=== PATIENT | female | born 1950 | race African-American/Black ===

== ENCOUNTER 2016-04-25 07:22 | Observation (INO) | payer MEDICARE, OTHER ==
[2016-04-25] MEDS ORDERED: NITROGLYCERIN OINT 1 INCH/GM PACKET TOPICAL STA (07:39)
[2016-04-25] MEDS ORDERED: NITROGLYCERIN SL TABS 0.4 MG TAB SUBLINGUAL STA (07:39)
[2016-04-25] MEDS ORDERED: ASPIRIN 81 MG CHEW PO STA (07:39)
--- NOTE | 2016-04-25 07:48 | ED ---
General Adult HPI - General Chief complaint: Chest Pain Stated complaint: chest pain Source: patient, RN notes reviewed Mode of arrival: wheelchair Limitations: no limitations - History of Present Illness Initial comments: This is a 65-year-old female presents emergency department complaining of chest pain. Patient states it started about 3:00 this morning. Patient states that sharp in nature last for 3-4 minutes at a time the pain radiates to her left arm she become short of breath and diaphoretic. Patient states been intermittent since 3 AM. Patient states she does have a family history of heart disease patient also is a smoker. Patient denies any recent fever or chills. Patient denies any cough. Patient denies any nausea. Patient denies any abdominal pain patient denies vomiting or diarrhea. Patient denies any lightheadedness dizziness or near-syncopal episode. Patient denies any numbness weakness Patient denies headache. Patient states the chest pain cannot be reproduced or cannot be worsened or improved with movement. - Related Data Home Medications Medication Instructions Recorded Confirmed Albuterol Sulfate [Proair Hfa] 2 puff INHALATION RT-Q4H PRN 06/27/15 04/25/16 Omeprazole [PriLOSEC] 40 mg PO DAILY 06/27/15 04/25/16 Rivaroxaban [Xarelto] 20 mg PO DAILY 08/18/15 04/25/16 diphenhydrAMINE HCL [Benadryl] 25 mg PO DAILY PRN 10/21/15 04/25/16 Fluticasone/Salmeterol [Advair 1 puff INHALATION RT-BID 11/01/15 04/25/16 250-50 Diskus] Furosemide [Lasix] 40 mg PO BID PRN 04/25/16 04/25/16 HYDROcodone/APAP 7.5-325MG [Drifting 1 tab PO Q4H PRN 04/25/16 04/25/16 7.5-325] Allergies Allergy/AdvReac Type Severity Reaction Status Date / Time No Known Allergies Allergy Verified 04/25/16 08:25 Review of Systems ROS Statement: Those systems with pertinent positive or pertinent negative responses have been documented in the HPI. ROS Other: All systems not noted in ROS Statement are negative. Past Medical History Past Medical History: Deep Vein Thrombosis (DVT), GERD/Reflux, Hypertension Additional Past Medical History / Comment(s): DIVERTICULITIS. IRREGULAR HEARTBEAT. COLON POLYPS.,SOB History of Any Multi-Drug Resistant Organisms: None Reported Past Surgical History: Appendectomy, Bowel Resection, Cholecystectomy, Hysterectomy, Orthopedic Surgery, Tubal Ligation Additional Past Surgical History / Comment(s): LEFT KNEE ARTHRO. LEFT BREAST BX -NEG. Past Anesthesia/Blood Transfusion Reactions: No Reported Reaction Past Psychological History: Anxiety Smoking Status: Current every day smoker Past Alcohol Use History: Daily Additional Past Alcohol Use History / Comment(s): SMOKED FOR: 49 YRS. PPD: LESS THAN PACK Past Drug Use History: None Reported - Past Family History Mother Family Medical History: Cancer Additional Family Medical History / Comment(s): CANCER OF LARYNX. CABG. FROM AN AORTIC ANEURYSM. Sister(s) Family Medical History: Cancer, Deep Vein Thrombosis (DVT) Father History Unknown: Yes Family Medical History: No Reported History, Unable to Obtain General Exam - General Exam Comments Initial Comments: GENERAL: Patient is well-developed and well-nourished. Patient is nontoxic and well- hydrated and is in mild distress. ENT: Neck is soft and supple. No significant lymphadenopathy is noted. Oropharynx is clear. Moist mucous membranes. Neck has full range of motion without eliciting any pain. EYES: The sclera were anicteric and conjunctiva were pink and moist. Extraocular movements were intact and pupils were equal round and reactive to light. Eyelids were unremarkable. PULMONARY: Unlabored respirations. Good breath sounds bilaterally. No audible rales rhonchi or wheezing was noted. CARDIOVASCULAR: There is a regular rate and rhythm without any murmurs gallops or rubs. ABDOMEN: Soft and nontender with normal bowel sounds. No palpable organomegaly was noted. There is no palpable pulsatile mass. SKIN: Skin is clear with no lesions or rashes and otherwise unremarkable. NEUROLOGIC: Patient is alert and oriented x3. Cranial nerves II through XII are grossly intact. Motor and sensory are also intact. Normal speech, volume and content. Symmetrical smile. MUSCULOSKELETAL: Normal extremities with adequate strength and full range of motion. No lower extremity swelling or edema. No calf tenderness. LYMPHATICS: No significant lymphadenopathy is noted PSYCHIATRIC: Normal psychiatric evaluation. Limitations: no limitations Course Vital Signs 04/25/16 04/25/16 04/25/16 07:33 08:05 08:50 Temperature 97.6 F Pulse Rate 59 L 59 L 57 L Respiratory 20 17 17 Rate Blood Pressure 184/107 156/79 167/91 O2 Sat by Pulse 99 97 Oximetry 04/25/16 09:35 Temperature Pulse Rate 77 Respiratory 17 Rate Blood Pressure 157/92 O2 Sat by Pulse 97 Oximetry Medical Decision Making - Medical Decision Making EKG shows a sinus rhythm at 58 bpm [place] interval is 112 QRS 76 QT interval is 456 QTC is 447. Patient's EKG shows no ST segment elevation or depression. I compared the EKG to an old EKG and there is a P axis change in the inferior leads as well as the patient is not bradycardic worse before she was not. Patient's chest pain was relieved with nitroglycerin. Started the patient heparin because of the significance of her symptoms as well as the relief with nitro and her risk factors. I spoke with . he agreed to admit the patient admitted the patient I consult the cardiology. - Lab Data Result diagrams: 04/25/16 07:30 04/25/16 07:30 Lab Results 04/25/16 04/25/16 04/25/16 Range/Units 07:30 07:30 07:30 WBC 6.1 (3.8-10.6) k/uL RBC 4.81 (3.80-5.40) m/uL Hgb 15.7 (11.4-16.0) gm/dL Hct 47.9 H (34.0-46.0) % MCV 99.6 (80.0-100.0) fL MCH 32.7 (25.0-35.0) pg MCHC 32.8 (31.0-37.0) g/dL RDW 13.6 (11.5-15.5) % Plt Count 243 (150-450) k/uL Neutrophils % (Manual) 39.0 % Lymphocytes % (Manual) 47.0 % Monocytes % (Manual) 13.0 % Eosinophils % (Manual) 1.0 % Neutrophils # (Manual) 2.4 (1.3-7.7) k/uL Lymphocytes # (Manual) 2.9 (1.0-4.8) k/uL Monocytes # (Manual) 0.8 (0-1.0) k/uL Eosinophils # (Manual) 0.1 (0-0.7) k/uL Nucleated RBCs 0 (0-0) /100 WBC Manual Slide Review Performed RBC Morphology Normal PT (9.0-12.0) sec INR (<1.1) APTT (22.0-30.0) sec Sodium 142 (137-145) mmol/L Potassium 4.8 (3.5-5.1) mmol/L Chloride 111 H (98-107) mmol/L Carbon Dioxide 18 L (22-30) mmol/L Anion Gap 13 mmol/L BUN 16 (7-17) mg/dL Creatinine 0.89 (0.52-1.04) mg/dL Est GFR (MDRD) Af Amer >60 (>60 ml/min/1.73 sqM) Est GFR (MDRD) Non-Af >60 (>60 ml/min/1.73 sqM) Glucose 133 H (74-99) mg/dL Calcium 9.7 (8.4-10.2) mg/dL Magnesium 2.0 (1.6-2.3) mg/dL Total Bilirubin 1.3 (0.2-1.3) mg/dL AST 73 H (14-36) U/L ALT 59 H (9-52) U/L Alkaline Phosphatase 139 H (38-126) U/L Total Creatine Kinase 61 (30-135) U/L CK-MB (CK-2) 0.8 (0.0-2.4) ng/mL CK-MB (CK-2) Rel Index 1.3 Troponin I <0.012 (0.000-0.034) ng/mL Total Protein 7.9 (6.3-8.2) g/dL Albumin 3.9 (3.5-5.0) g/dL 04/25/16 Range/Units 07:30 WBC (3.8-10.6) k/uL RBC (3.80-5.40) m/uL Hgb (11.4-16.0) gm/dL Hct (34.0-46.0) % MCV (80.0-100.0) fL MCH (25.0-35.0) pg MCHC (31.0-37.0) g/dL RDW (11.5-15.5) % Plt Count (150-450) k/uL Neutrophils % (Manual) % Lymphocytes % (Manual) % Monocytes % (Manual) % Eosinophils % (Manual) % Neutrophils # (Manual) (1.3-7.7) k/uL Lymphocytes # (Manual) (1.0-4.8) k/uL Monocytes # (Manual) (0-1.0) k/uL Eosinophils # (Manual) (0-0.7) k/uL Nucleated RBCs (0-0) /100 WBC Manual Slide Review RBC Morphology PT 11.6 (9.0-12.0) sec INR 1.2 (<1.1) APTT 25.5 (22.0-30.0) sec Sodium (137-145) mmol/L Potassium (3.5-5.1) mmol/L Chloride (98-107) mmol/L Carbon Dioxide (22-30) mmol/L Anion Gap mmol/L BUN (7-17) mg/dL Creatinine (0.52-1.04) mg/dL Est GFR (MDRD) Af Amer (>60 ml/min/1.73 sqM) Est GFR (MDRD) Non-Af (>60 ml/min/1.73 sqM) Glucose (74-99) mg/dL Calcium (8.4-10.2) mg/dL Magnesium (1.6-2.3) mg/dL Total Bilirubin (0.2-1.3) mg/dL AST (14-36) U/L ALT (9-52) U/L Alkaline Phosphatase (38-126) U/L Total Creatine Kinase (30-135) U/L CK-MB (CK-2) (0.0-2.4) ng/mL CK-MB (CK-2) Rel Index Troponin I (0.000-0.034) ng/mL Total Protein (6.3-8.2) g/dL Albumin (3.5-5.0) g/dL Critical Care Time Critical Care Time: Yes Total Critical Care Time: 35 Disposition Clinical Impression: Unstable angina pectoris Disposition: ADMITTED IP TO THIS HOSP Referrals: Sergei Seals MD [Primary Care Provider] - 1-2 days Time of Disposition: 10:44
[2016-04-25 08:15] LABS: Aty Lym Flag Slight; CHCM 33.2; HCT 47.9 % (34.0-46.0); HDW 2.05; HGB 15.7 gm/dL (11.4-16.0); MCH 32.7 pg (25.0-35.0); MCHC 32.8 g/dL (31.0-37.0); MCV 99.6 fL (80.0-100.0); Mean Platelet Volume 8.2; RBC 4.81 m/uL (3.80-5.40); RDW 13.6 % (11.5-15.5); WBC 6.1 k/uL (3.8-10.6); WBC (Perox) 6.05
--- NOTE | 2016-04-25 08:20 | XR ---
EXAMINATION TYPE: XR chest 2V DATE OF EXAM: 04/25/2016 8:17 AM HISTORY: Chest pain radiating into the left arm. REFERENCE: Previous study dated 11/02/2015. FINDINGS: The lungs are overinflated. Heart size is upper limits of normal. The lungs are clear. Pleu ral spaces are clear. IMPRESSION: 1. COPD. 2. BORDERLINE CARDIOMEGALY.
[2016-04-25 08:37] LABS: Add Differential Manual Differential; Creatine Kinase 61 U/L (30-135)
[2016-04-25 08:39] LABS: Nucleated Red Blood Cells 0 /100 WBC (0-0); Total Cells Counted 100
[2016-04-25 08:40] LABS: Manual Review Performed; RBC Morphology Normal
[2016-04-25 08:48] LABS: ALT 59 U/L (9-52); AST 73 U/L (14-36); Alkaline Phosphatase 139 U/L (38-126); Anion Gap 13 mmol/L; Blood Urea Nitrogen 16 mg/dL (7-17); Calcium 9.7 mg/dL (8.4-10.2); Carbon Dioxide 18 mmol/L (22-30); Chloride 111 mmol/L (98-107); Glucose 133 mg/dL (74-99); Non-African American GFR(MDRD) >60 (>60 ml/min/1.73 sqM); Sodium 142 mmol/L (137-145); Total Bilirubin 1.3 mg/dL (0.2-1.3); Total Protein 7.9 g/dL (6.3-8.2)
[2016-04-25 08:49] LABS: INR 1.2 (<1.1); Partial Thromboplastin Time 25.5 sec (22.0-30.0); Potassium 4.8 mmol/L (3.5-5.1); Prothrombin Time 11.6 sec (9.0-12.0)
[2016-04-25 08:50] LABS: Creatine Kinase MB 0.8 ng/mL (0.0-2.4); Troponin I <0.012 ng/mL (0.000-0.034)
[2016-04-25] MEDS ORDERED: HEPARIN SODIUM,PORCINE 5,000 UNIT/ML 1 ML VIAL IV ONE (09:08)
[2016-04-25] MEDS ORDERED: NITROGLYCERIN SL TABS 0.4 MG TAB SUBLINGUAL PRN (09:09)
[2016-04-25] MEDS ORDERED: HEPARIN SODIUM,PORCINE/D5W PMX 25,000 UNIT in DEXTROSE/WATER 1 500ML.BAG IV SCH (09:15)
[2016-04-25] MEDS ORDERED: HYDROcodone/APAP 7.5-325MG 1 EACH TAB PO ONE (11:18)
--- NOTE | 2016-04-25 12:25 | CONS ---
DATE OF CONSULTATION: CHIEF COMPLAINT: Chest pain. Raegan is a 65-year-old lady with history of atrial fibrillation, GERD, DVT, hypertension, who presented to hospital complaining of chest pain. She describes as a sharp precordial pain, that radiated to her left arm without diaphoresis or shortness of breath. This has been on and off since 3:00 in the morning. At the time of my evaluation, patient is pain free, hemodynamically stable and in no apparent distress. EKG shows ectopic atrial rhythm without any ST-T wave changes. First set of troponin is negative. Past medical history is significant for COPD, DVT. ALLERGIES: There are no known drug allergies. Medications include ProAir, Prilosec, Xarelto, Benadryl, Advair. Family history is negative for premature coronary artery disease. Social history is significant for current smoking. There is no history of EtOH abuse or drug abuse. REVIEW OF SYSTEMS: HEENT is unremarkable. CARDIAC: As described above. RESPIRATORY: Negative. GI: Negative. GENITOURINARY: Negative. ALLERGY/IMMUNOLOGY: Negative. MUSCULOSKELETAL: Significant for arthritis. PSYCHOSOCIAL: Negative. ENDOCRINE: Negative. DERM: Negative. CONSTITUTIONAL: Negative. The rest of the system review is not relevant. Past surgical history is significant for appendectomy, cholecystectomy, hysterectomy, tubal ligation. On exam, comfortable at rest, afebrile, heart rate is 60 beats per minute, blood pressure is 142/79, respiratory rate is 18, O2 sat is 98% on room air. There is no jugular venous distention. Carotid upstroke is normal. There is no bruit. Chest exam reveals good air entry bilaterally. Heart exam reveals first and second heart sounds. No gallop. No murmur. No rub. Abdomen is soft, nontender. Exam of the extremities did not reveal edema. Peripheral pulses are felt. Labs show that the first set of troponin is negative. Hemoglobin is 15.7. Potassium is 4.8. Creatinine is 0.89. ASSESSMENT: Chest pain, atypical, probably noncardiac. PLAN: Patient recently had a stress test through my office, I am going to review it. Obtain serial troponins to rule out myocardial infarction. If the work-up is negative, she can be discharged home and outpatient followup arranged through my office.
[2016-04-25] MEDS ORDERED: FUROSEMIDE 40 MG TAB PO PRN (12:55)
[2016-04-25] MEDS ORDERED: diphenhydrAMINE 25 MG CAP PO PRN (12:55)
[2016-04-25] MEDS ORDERED: ALBUTEROL NEBULIZED 2.5 MG/3 ML INHALATION PRN (12:55)
--- NOTE | 2016-04-25 14:42 | P.HPIM ---
History of Present Illness H&P Date: 04/25/16 Chief Complaint: Chest pain This is a 65-year-old -[place] female patient of Dr. Sergei Seals's with a past history of DVT in the right leg, gastroesophageal reflux disease, hypertension, hepatitis C untreated, tobacco use and dependence. Her arts and humanities council director is Dr. Santos and she last saw him in October 2015 underwent a stress test at that time which patient states was normal. Patient states that she you was sleeping and woke up due to chest pain that didn't seem to go away. She did not have nitroglycerin at home. She did burp it seemed to be a little bit better and she went back to sleep but when she woke up the chest pain was worse. The pain was sharp and radiated to her left arm along with shortness of breath and diaphoresis. She came into [facility] emergency center for evaluation. She did receive nitroglycerin. EKG does not show any ST-T wave changes and first troponin has been negative. Chest x-ray shows COPD and borderline cardiomegaly. She was started on a heparin drip and placed on the observation unit. Noted the patient's initial blood pressure reading was 184/107. Liver enzymes were slightly elevated. Patient has been seen by Dr. Santos with plan to review her stress test from last summer and make further plan for evaluation. Repeat troponins are pending. Review of Systems All systems: negative Constitutional: Denies chills, Denies fever Eyes: denies blurred vision, denies pain Ears, nose, mouth and throat: Denies headache, Denies sore throat Cardiovascular: Reports chest pain, Denies shortness of breath Respiratory: Denies cough Gastrointestinal: Denies abdominal pain, Denies diarrhea, Denies nausea, Denies vomiting Genitourinary: Denies dysuria, Denies hematuria Musculoskeletal: Denies myalgias Integumentary: Denies pruritus, Denies rash Neurological: Denies numbness, Denies weakness Psychiatric: Denies anxiety, Denies depression Endocrine: Denies fatigue, Denies weight change Past Medical History Past Medical History: Deep Vein Thrombosis (DVT), GERD/Reflux, Hypertension, Liver Disease, Osteoarthritis (OA) Additional Past Medical History / Comment(s): DVT R leg 2005, hepatitis C, past IV heroin use, colonic polyp-benign, athritis multiple joints, FRANCIS, erythema nodosum History of Any Multi-Drug Resistant Organisms: None Reported Past Surgical History: Appendectomy, Bowel Resection, Breast Surgery, Cholecystectomy, Hysterectomy, Orthopedic Surgery, Tubal Ligation Additional Past Surgical History / Comment(s): Sigmoid resection due to diverticular dx, partial colonoscopy, LEFT KNEE ARTHROSCOPY, LEFT BREAST BX-NEG. Past Anesthesia/Blood Transfusion Reactions: No Reported Reaction Past Psychological History: Anxiety Additional Psychological History / Comment(s): Pt resides alone. She has a cane or walker she uses prn. She does not drive. She gets to [place] by bus or her daughter drives her. Smoking Status: Current every day smoker Past Alcohol Use History: Daily Additional Past Alcohol Use History / Comment(s): Pt states she started smoking in 1966 and is up to a ppd smoker. She states she drinks 1-2 beers nearly every day and last drank 2 days ago. Patient denies any recent street drug or marijuana use. She does not have a CPAP, nebulizer or oxygen at home. She is single. Past Drug Use History: None Reported Additional Drug Use History / Comment(s): Pt states she has used IV heroin in the past with last use when she was in her 30's. She states she has also used cocaine but not in the past 5 yrs. 10/26/15 drug screen + for cocaine. - Past Family History Mother Family Medical History: Cancer Additional Family Medical History / Comment(s): Mother at age 77 with history of CANCER OF LARYNX. CABG. FROM AN AORTIC ANEURYSM. Sister(s) Family Medical History: Cancer, Deep Vein Thrombosis (DVT) Additional Family Medical History / Comment(s): Uterine cancer. Patient has 2 sisters and one . She states her living sister is not doing well but does not know her medical problems. Father History Unknown: Yes Family Medical History: No Reported History, Unable to Obtain Additional Family Medical History / Comment(s): Dad but that she does not know his medical problems. Brother(s) Additional Family Medical History / Comment(s): She has one brother with COPD. Daughter(s) Additional Family Medical History / Comment(s): Patient has 4 children. One daughter from a motor vehicle accident. One daughter has had a stroke and myocardial infarction. Medications and Allergies Home Medications Medication Instructions Recorded Confirmed Type Albuterol Sulfate [Proair Hfa] 2 puff INHALATION RT-Q4H PRN 06/27/15 04/25/16 History Omeprazole [PriLOSEC] 40 mg PO DAILY 06/27/15 04/25/16 History Rivaroxaban [Xarelto] 20 mg PO DAILY 08/18/15 04/25/16 History diphenhydrAMINE HCL [Benadryl] 25 mg PO DAILY PRN 10/21/15 04/25/16 History Fluticasone/Salmeterol [Advair 1 puff INHALATION RT-BID 11/01/15 04/25/16 History 250-50 Diskus] Furosemide [Lasix] 40 mg PO BID PRN 04/25/16 04/25/16 History HYDROcodone/APAP 7.5-325MG [Holden 1 tab PO Q4H PRN 04/25/16 04/25/16 History 7.5-325] Allergies Allergy/AdvReac Type Severity Reaction Status Date / Time No Known Allergies Allergy Verified 04/25/16 08:25 Physical Exam Vitals: Vital Signs Temp Pulse Pulse Resp BP BP Pulse Ox 04/25/16 12:00 61 18 04/25/16 11:30 98.0 F 61 18 142/79 98 04/25/16 10:45 97.1 F L 69 17 160/85 96 04/25/16 09:35 77 17 157/92 97 Intake and Output 04/24/16 04/25/16 04/25/16 22:59 06:59 14:59 Other: Voiding Method Toilet Weight 80.3 kg Patient Weight 04/26/16 06:59 Weight 80.3 kg Gen: This is a -[place] 65-year-old female. She is sitting up in bed and appears to be in no acute distress. HEENT: Head is atraumatic, normocephalic. Pupils equal, round. Sclerae is anicteric. NECK: Supple. No JVD. No lymphadenopathy. No thyromegaly. LUNGS: Clear to auscultation. No wheezes or rhonchi. No intercostal retractions. HEART: Regular rate and rhythm. No murmur. ABDOMEN: Soft. Bowel sounds are present. No masses. No tenderness. EXTREMITIES: No pedal edema. No calf tenderness. NEUROLOGICAL: Patient is awake, alert and oriented x3. Cranial nerves 2 through 12 are grossly intact. Results CBC & Chem 7: 04/25/16 07:30 04/25/16 07:30 Thrombosis Risk Factor Assmnt - DVT/VTE Prophylaxis DVT/VTE Prophylaxis: Pharmacologic Prophylaxis ordered - Choose All That Apply Any of the Below Risk Factors Present?: Yes Each Factor Represents 1 point: Obesity (BMI >25) Other Risk Factors: Yes Each Risk Factor Represents 2 Points: Age 61-74 years Each Risk Factor Represents 3 Points: History of DVT/PE Other congenital or acquired thrombophilia - If yes, enter type in comment: No Thrombosis Risk Factor Assessment Total Risk Factor Score: 6 Thrombosis Risk Factor Assessment Level: High Risk Assessment and Plan Plan: 1. Chest pain. Patient placed in the observation unit. Serial troponins have been ordered. Patient has been seen by arts and humanities council director, Dr. Gilbert. He is reviewing previous stress test to make further plans. Heparin drip will be discontinued. Patient will be resumed back on Xarelto. 2. History of DVT. Continue Xarelto. 3. Possible history of asthma or COPD. Continue Advair and albuterol inhaler. 4. Gastroesophageal reflux disease. Continue omeprazole or equivalent. 5. History of hepatitis C. Patient to follow-up as an outpatient. 6. History of hypertension but not currently on medication. Patient laced on the observation unit. Discharge plan: Return home Impression and plan of care have been directed as dictated by the signing physician. Cynthia Franco nurse practitioner acting as scribe for signing physician. Time with Patient: Greater than 30
[2016-04-25 14:51] LABS: Creatine Kinase 46 U/L (30-135)
[2016-04-25 15:01] LABS: Creatine Kinase MB 0.6 ng/mL (0.0-2.4); Troponin I <0.012 ng/mL (0.000-0.034)
[2016-04-25] MEDS: NITROGLYCERIN OINT 1 INCH/GM PACKET TOPICAL SCH ×3 (17:34→23:53)
[2016-04-25] MEDS: HYDROcodone/APAP 7.5-325MG 1 EACH TAB PO PRN ×2 (17:55→21:41)
[2016-04-25] MEDS: NICOTINE 14MG/24HR PATCH TRANSDERM SCH (17:55)
[2016-04-25] MEDS: RIVAROXABAN 10 MG TAB PO SCH (17:55)
[2016-04-25 20:22] LABS: Creatine Kinase 42 U/L (30-135)
[2016-04-25 20:35] LABS: Creatine Kinase MB 0.6 ng/mL (0.0-2.4); Troponin I <0.012 ng/mL (0.000-0.034)
[2016-04-25] MEDS: SYMBICORT 80-4.5 MCG INHALER INHALATION SCH (21:00)
[2016-04-25] MEDS: ALPRAZolam 0.5 MG TAB PO PRN (22:19)
[2016-04-26 02:50] LABS: Cholesterol 202 mg/dL (<200); HDL Cholesterol 58 mg/dL (40-60); Triglycerides 134 mg/dL (<150)
[2016-04-26] MEDS: NITROGLYCERIN OINT 1 INCH/GM PACKET TOPICAL SCH ×2 (06:23→13:28)
[2016-04-26] MEDS ORDERED: PANTOPRAZOLE 40 MG TABLET PO SCH ×2 (07:30)
--- NOTE | 2016-04-26 07:50 | PN ---
Raegan is a 65-year-old lady who was admitted to hospital with chest pain and is ruled out for myocardial infarction. She had a stress test done in August of last year that revealed normal myocardial perfusion function. She has had an uneventful stay so far and is pain free. On exam, comfortable at rest. Vital signs are stable. There is no jugular venous distention. Chest exam reveals good air entry bilaterally. Heart exam reveals first and second heart sounds. No gallop. No murmur, no rub. Abdomen is soft, nontender. Exam of extremities did not reveal any edema. Peripheral pulses are felt. ASSESSMENT: Chest pain, exact etiology is unclear. She ruled out for myocardial infarction. She is symptom free and stable to be discharged home and have outpatient follow-up through my office.
[2016-04-26] MEDS: RIVAROXABAN 10 MG TAB PO SCH (08:24)
[2016-04-26] MEDS: NICOTINE 14MG/24HR PATCH TRANSDERM SCH (08:25)
[2016-04-26] MEDS: HYDROcodone/APAP 7.5-325MG 1 EACH TAB PO PRN (08:25)
[2016-04-26] MEDS: ALPRAZolam 0.5 MG TAB PO PRN (08:25)
[2016-04-26 08:27] VITALS: RESP 18
[2016-04-26] MEDS ORDERED: ASPIRIN 325 MG TAB PO SCH (09:00)
[2016-04-26] MEDS: SYMBICORT 80-4.5 MCG INHALER INHALATION SCH (09:41)
[2016-04-26 12:15] VITALS: BP 144/67; PULSE 65; TEMP 97.1
--- NOTE | 2016-05-03 17:10 | P.DS ---
Providers Date of admission: 04/25/16 09:11 Expected date of discharge: 04/26/16 Attending physician: Alvin Stroud Primary care physician: Sergei Seals [place] [facility] Course: This is a 65-year-old -[place] female patient of Dr. Sergei Seals'mateo with a past history of DVT in the right leg, gastroesophageal reflux disease, hypertension, hepatitis C untreated, tobacco use and dependence. Her recruitment coordinator is Dr. Santos and she last saw him in October 2015 underwent a stress test at that time which patient states was normal. Patient states that she you was sleeping and woke up due to chest pain that didn't seem to go away. She did not have nitroglycerin at home. She did burp it seemed to be a little bit better and she went back to sleep but when she woke up the chest pain was worse. The pain was sharp and radiated to her left arm along with shortness of breath and diaphoresis. She came into [facility] emergency center for evaluation. She did receive nitroglycerin. EKG does not show any ST-T wave changes and first troponin has been negative. Chest x-ray shows COPD and borderline cardiomegaly. She was started on a heparin drip and placed on the observation unit. Noted the patient's initial blood pressure reading was 184/107. Liver enzymes were slightly elevated. Patient has been seen by Dr. Santos with plan to review her stress test from last summer and make further plan for evaluation. Repeat troponins are pending. 04/26: Dr. Santos has cleared the patient for discharge with plan to follow-up with cardiology office for any further testing.patient is requesting prescriptions be provided for Xanax and Amelia.20 tablets of Amelia were provided and patient was instructed to follow-up with her primary care physician regarding Xanax refill. Discharge diagnoses: 1. Chest painpossibly due to gastroesophageal reflux disease. Patient has been on omeprazole and recommended changing to Protonix. 2. History of DVT. Continue Xarelto. 3. Possible history of asthma or COPD. 4. Gastroesophageal reflux disease. 5. History of hepatitis C. 6. History of hypertension but not currently on medication. Patient laced on the observation unit. Discharge plan: Return home Impression and plan of care have been directed as dictated by the signing physician. Cynthia Franco nurse practitioner acting as scribe for signing physician. CC: Dr. Sergei Seals Patient Condition at Discharge: Good Plan - Discharge Summary New Discharge Prescriptions: HYDROcodone/APAP 7.5-325MG [Amelia 7.5-325] 1 tab PO Q4H PRN #20 tab PRN Reason: Pain Nicotine 14Mg/24Hr Patch [Habitrol] 1 patch TRANSDERM DAILY #30 patch Pantoprazole Sodium [Protonix] 40 mg PO DAILY #30 tablet.dr Discharge Medication List Albuterol Sulfate [Proair Hfa] 2 puff INHALATION RT-Q4H PRN 06/27/15 [History] Rivaroxaban [Xarelto] 20 mg PO DAILY 08/18/15 [History] diphenhydrAMINE HCL [Benadryl] 25 mg PO DAILY PRN 10/21/15 [History] Fluticasone/Salmeterol [Advair 250-50 Diskus] 1 puff INHALATION RT-BID 11/01/15 [History] Furosemide [Lasix] 40 mg PO BID PRN 04/25/16 [History] HYDROcodone/APAP 7.5-325MG [Amelia 7.5-325] 1 tab PO Q4H PRN #20 tab 04/26/16 [Rx ] Nicotine 14Mg/24Hr Patch [Habitrol] 1 patch TRANSDERM DAILY #30 patch 04/26/16 [ Rx] Pantoprazole Sodium [Protonix] 40 mg PO DAILY #30 tablet. 04/26/16 [Rx] Follow up Appointment(s)/Referral(s): Sergei Seals MD [Primary Care Provider] - 1 Week Marcial Santos MD [STAFF PHYSICIAN] - 05/07/16 3:00 pm Discharge Disposition: HOME SELF-CARE
== END 2016-04-26 12:53 | disposition home or self-care (01) ==
LOC: EC 07:22 → 3OBS 09:11
PROVIDERS: ADMIT Internal Medicine Geriatric Medicine; ATTEND Internal Medicine Geriatric Medicine
DX: R07.89 Other chest pain (principal); Z86.718 Personal history of other venous thrombosis and embolism; K21.9 Gastro-esophageal reflux disease without esophagitis; Z86.19 Personal history of other infectious and parasitic diseases; I11.9 Hypertensive heart disease without heart failure; F17.200 Nicotine dependence, unspecified, uncomplicated; J44.9 Chronic obstructive pulmonary disease, unspecified; Z79.01 Long term (current) use of anticoagulants; R61 Generalized hyperhidrosis; Z79.51 Long term (current) use of inhaled steroids; Z79.02 Long term (current) use of antithrombotics/antiplatelets; Z79.899 Other long term (current) drug therapy
CPT/HCPCS: 36415; 94640 ×2; 93005; 80061; 80053; 82550; 82553; 83735; 84484; 85025; 85610; 85730; 71020; 99291; 96365; 96376; G0378 ×2; S4990 ×2; J1644 ×2; 96366

== ENCOUNTER 2016-05-14 09:26 | Emergency (ER) | payer MEDICARE, OTHER ==
[2016-05-14] MEDS: ASPIRIN 81 MG CHEW PO STA (09:54)
--- NOTE | 2016-05-14 09:54 | ED ---
General Adult HPI - General Chief complaint: Chest Pain Stated complaint: Chest pain Time Seen by Provider: 05/14/16 09:31 Source: patient, RN notes reviewed Mode of arrival: wheelchair Limitations: no limitations - History of Present Illness Initial comments: Patient is a pleasant 65-year-old female presenting to the emergency department complaining of chest discomfort. Onset was just a couple of hours ago when she awoke. Discomfort feels like pressure. No radiation. Patient does have some mild associated dyspnea. No nausea or diaphoresis. Patient did have similar symptoms a couple of weeks ago and is scheduled for an outpatient stress test. No leg pain or swelling. Patient does have a history of IV drug abuse. Discomfort remained severe at this time. - Related Data Home Medications Medication Instructions Recorded Confirmed Albuterol Sulfate [Proair Hfa] 2 puff INHALATION RT-Q4H PRN 06/27/15 05/14/16 Rivaroxaban [Xarelto] 20 mg PO DAILY 08/18/15 05/14/16 diphenhydrAMINE HCL [Benadryl] 25 mg PO DAILY PRN 10/21/15 05/14/16 Fluticasone/Salmeterol [Advair 1 puff INHALATION RT-BID 11/01/15 05/14/16 250-50 Diskus] Furosemide [Lasix] 40 mg PO BID PRN 04/25/16 05/14/16 Previous Rx's Medication Instructions Recorded HYDROcodone/APAP 7.5-325MG [[place] 1 tab PO Q4H PRN #20 tab 04/26/16 7.5-325] Pantoprazole Sodium [Protonix] 40 mg PO DAILY #30 tablet. 04/26/16 Allergies Allergy/AdvReac Type Severity Reaction Status Date / Time No Known Allergies Allergy Verified 05/14/16 09:57 Review of Systems ROS Statement: Those systems with pertinent positive or pertinent negative responses have been documented in the HPI. ROS Other: All systems not noted in ROS Statement are negative. Constitutional: Denies: fever Eyes: Denies: eye pain ENT: Denies: ear pain Respiratory: Reports: dyspnea. Denies: cough Cardiovascular: Reports: chest pain Endocrine: Denies: fatigue Gastrointestinal: Denies: abdominal pain Genitourinary: Denies: dysuria Musculoskeletal: Denies: back pain Skin: Denies: rash Neurological: Denies: weakness Past Medical History Past Medical History: Deep Vein Thrombosis (DVT), GERD/Reflux, Hypertension, Liver Disease, Osteoarthritis (OA) Additional Past Medical History / Comment(s): DVT R leg 2006, hepatitis C, past IV heroin use, colonic polyp-benign, athritis multiple joints, FRANCIS, erythema nodosum History of Any Multi-Drug Resistant Organisms: None Reported Past Surgical History: Appendectomy, Bowel Resection, Breast Surgery, Cholecystectomy, Hysterectomy, Orthopedic Surgery, Tubal Ligation Additional Past Surgical History / Comment(s): Sigmoid resection due to diverticular dx, partial colonoscopy, LEFT KNEE ARTHROSCOPY, LEFT BREAST BX-NEG. Past Anesthesia/Blood Transfusion Reactions: No Reported Reaction Past Psychological History: Anxiety Additional Psychological History / Comment(s): Pt resides alone. She has a cane or walker she uses prn. She does not drive. She gets to [place] by bus or her daughter drives her. Smoking Status: Current every day smoker Past Alcohol Use History: Daily Additional Past Alcohol Use History / Comment(s): Pt states she started smoking in 1966 and is up to a ppd smoker. She states she drinks 1-2 beers nearly every day and last drank 2 days ago. Patient denies any recent street drug or marijuana use. She does not have a CPAP, nebulizer or oxygen at home. She is single. Past Drug Use History: None Reported Additional Drug Use History / Comment(s): Pt states she has used IV heroin in the past with last use when she was in her 30's. She states she has also used cocaine but not in the past 5 yrs. 10/26/15 drug screen + for cocaine. - Past Family History Mother Family Medical History: Cancer Additional Family Medical History / Comment(s): Mother at age 77 with history of CANCER OF LARYNX. CABG. FROM AN AORTIC ANEURYSM. Sister(s) Family Medical History: Cancer, Deep Vein Thrombosis (DVT) Additional Family Medical History / Comment(s): Uterine cancer. Patient has 2 sisters and one . She states her living sister is not doing well but does not know her medical problems. Father History Unknown: Yes Family Medical History: No Reported History, Unable to Obtain Additional Family Medical History / Comment(s): Dad but that she does not know his medical problems. Brother(s) Additional Family Medical History / Comment(s): She has one brother with COPD. Daughter(s) Additional Family Medical History / Comment(s): Patient has 4 children. One daughter from a motor vehicle accident. One daughter has had a stroke and myocardial infarction. General Exam Limitations: no limitations General appearance: alert, in no apparent distress Head exam: Present: atraumatic Eye exam: Present: normal appearance ENT exam: Present: normal exam Neck exam: Present: normal inspection Respiratory exam: Present: normal lung sounds bilaterally, chest wall tenderness (Mild sternal) Cardiovascular Exam: Present: regular rate, normal rhythm Expanded Peripheral pulses: 2+: Radial (R), Radial (L), Posterior Tibialis (R), Posterior Tibialis (L) GI/Abdominal exam: Present: soft, tenderness (Mild epigastric tenderness). Absent: distended Extremities exam: Present: normal inspection, other (Pockmarks). Absent: pedal edema, calf tenderness Neurological exam: Present: alert Psychiatric exam: Present: normal affect, normal mood Skin exam: Absent: rash Course Vital Signs 05/14/16 05/14/16 05/14/16 09:28 09:44 10:06 Temperature 97.5 F L Pulse Rate 89 81 Respiratory 20 18 16 Rate Blood Pressure 206/95 158/90 O2 Sat by Pulse 99 98 Oximetry 05/14/16 10:40 Temperature Pulse Rate 60 Respiratory 18 Rate Blood Pressure 143/70 O2 Sat by Pulse 98 Oximetry EKG Findings - EKG Comments: EKG Findings:: Normal sinus rhythm at 77. W[place] 172. QRS 72. QT 408. QTC 461. Normal axis. Normal QRS. Normal ST-T. Medical Decision Making - Medical Decision Making Patient reevaluated and improved. Case was discussed in detail with Dr. hernandez who is familiar with this patient. He states patient should be discharged home. Patient has had recent full cardiac evaluation including stress test and cardiology evaluation and cardiology outpatient evaluation. Patient is updated regarding this. Patient is also updated regarding mild elevation of liver enzymes and need for recheck of this in the near future. Patient does confirm she has had her gallbladder previously removed. - Lab Data Result diagrams: 05/14/16 09:46 05/14/16 09:46 Lab Results 05/14/16 05/14/16 05/14/16 Range/Units 09:46 09:46 09:46 WBC 5.2 (3.8-10.6) k/uL RBC 4.46 (3.80-5.40) m/uL Hgb 14.4 (11.4-16.0) gm/dL Hct 44.6 (34.0-46.0) % MCV 100.0 (80.0-100.0) fL MCH 32.4 (25.0-35.0) pg MCHC 32.4 (31.0-37.0) g/dL RDW 13.8 (11.5-15.5) % Plt Count 310 (150-450) k/uL Neutrophils % 39 % Lymphocytes % 48 % Monocytes % 6 % Eosinophils % 3 % Basophils % 1 % Neutrophils # 2.0 (1.3-7.7) k/uL Lymphocytes # 2.5 (1.0-4.8) k/uL Monocytes # 0.3 (0-1.0) k/uL Eosinophils # 0.2 (0-0.7) k/uL Basophils # 0.0 (0-0.2) k/uL Macrocytosis Slight PT (9.0-12.0) sec INR (<1.1) APTT (22.0-30.0) sec Sodium 145 (137-145) mmol/L Potassium 4.4 (3.5-5.1) mmol/L Chloride 110 H (98-107) mmol/L Carbon Dioxide 21 L (22-30) mmol/L Anion Gap 14 mmol/L BUN 14 (7-17) mg/dL Creatinine 0.93 (0.52-1.04) mg/dL Est GFR (MDRD) Af Amer >60 (>60 ml/min/1.73 sqM) Est GFR (MDRD) Non-Af >60 (>60 ml/min/1.73 sqM) Glucose 108 H (74-99) mg/dL Calcium 9.9 (8.4-10.2) mg/dL Magnesium 1.8 (1.6-2.3) mg/dL Total Bilirubin 0.7 (0.2-1.3) mg/dL AST 91 H (14-36) U/L ALT 64 H (9-52) U/L Alkaline Phosphatase 193 H (38-126) U/L Total Creatine Kinase 145 H (30-135) U/L CK-MB (CK-2) 2.2 (0.0-2.4) ng/mL CK-MB (CK-2) Rel Index 1.5 Troponin I <0.012 (0.000-0.034) ng/mL NT-Pro-B Natriuret Pep pg/mL Total Protein 7.9 (6.3-8.2) g/dL Albumin 4.2 (3.5-5.0) g/dL 05/14/16 05/14/16 Range/Units 09:46 09:46 WBC (3.8-10.6) k/uL RBC (3.80-5.40) m/uL Hgb (11.4-16.0) gm/dL Hct (34.0-46.0) % MCV (80.0-100.0) fL MCH (25.0-35.0) pg MCHC (31.0-37.0) g/dL RDW (11.5-15.5) % Plt Count (150-450) k/uL Neutrophils % % Lymphocytes % % Monocytes % % Eosinophils % % Basophils % % Neutrophils # (1.3-7.7) k/uL Lymphocytes # (1.0-4.8) k/uL Monocytes # (0-1.0) k/uL Eosinophils # (0-0.7) k/uL Basophils # (0-0.2) k/uL Macrocytosis PT 10.7 (9.0-12.0) sec INR 1.1 (<1.1) APTT 24.6 (22.0-30.0) sec Sodium (137-145) mmol/L Potassium (3.5-5.1) mmol/L Chloride (98-107) mmol/L Carbon Dioxide (22-30) mmol/L Anion Gap mmol/L BUN (7-17) mg/dL Creatinine (0.52-1.04) mg/dL Est GFR (MDRD) Af Amer (>60 ml/min/1.73 sqM) Est GFR (MDRD) Non-Af (>60 ml/min/1.73 sqM) Glucose (74-99) mg/dL Calcium (8.4-10.2) mg/dL Magnesium (1.6-2.3) mg/dL Total Bilirubin (0.2-1.3) mg/dL AST (14-36) U/L ALT (9-52) U/L Alkaline Phosphatase (38-126) U/L Total Creatine Kinase (30-135) U/L CK-MB (CK-2) (0.0-2.4) ng/mL CK-MB (CK-2) Rel Index Troponin I (0.000-0.034) ng/mL NT-Pro-B Natriuret Pep 105 pg/mL Total Protein (6.3-8.2) g/dL Albumin (3.5-5.0) g/dL - Radiology Data Radiology results: image reviewed (Chest x-ray shows no acute process.) Disposition Clinical Impression: Chest pain Disposition: HOME SELF-CARE Condition: Stable Instructions: Chest Pain (ED) Additional Instructions: Please follow-up with your doctor this week, preferably tomorrow. Please have your primary care physician recheck liver enzymes and review no from today. 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 Return for increased pain, abdominal pain, fever, vomiting, worsening symptoms or other concerns. Referrals: Sergei Seals MD [Primary Care Provider] - 1-2 days
[2016-05-14] MEDS: NITROGLYCERIN SL TABS 0.4 MG TAB SUBLINGUAL STA ×3 (09:55→10:44)
[2016-05-14 10:09] LABS: Basophils % (A) 1 %; CH 33.2; CHCM 33.3; Eosinophils # (A) 0.2 k/uL (0-0.7); Eosinophils % (A) 3 %; HCT 44.6 % (34.0-46.0); HDW 2.12; HGB 14.4 gm/dL (11.4-16.0); Luc # (Auto) 0.18; Luc % (Auto) 4; Lymphocytes # (A) 2.5 k/uL (1.0-4.8); Lymphocytes % (A) 48 %; MCH 32.4 pg (25.0-35.0); MCHC 32.4 g/dL (31.0-37.0); Macrocytosis Slight; Mean Platelet Volume 7.7; Monocytes # (A) 0.3 k/uL (0-1.0); Monocytes % (A) 6 %; Neutrophils % (A) 39 %; RBC 4.46 m/uL (3.80-5.40); RDW 13.8 % (11.5-15.5); WBC 5.2 k/uL (3.8-10.6); WBC (Perox) 5.19
[2016-05-14 10:19] LABS: ALT 64 U/L (9-52); AST 91 U/L (14-36); Alkaline Phosphatase 193 U/L (38-126); Anion Gap 14 mmol/L; Blood Urea Nitrogen 14 mg/dL (7-17); Calcium 9.9 mg/dL (8.4-10.2); Carbon Dioxide 21 mmol/L (22-30); Chloride 110 mmol/L (98-107); Glucose 108 mg/dL (74-99); Magnesium 1.8 mg/dL (1.6-2.3); Non-African American GFR(MDRD) >60 (>60 ml/min/1.73 sqM); Potassium 4.4 mmol/L (3.5-5.1); Sodium 145 mmol/L (137-145); Total Bilirubin 0.7 mg/dL (0.2-1.3); Total Protein 7.9 g/dL (6.3-8.2)
--- NOTE | 2016-05-14 10:20 | XR ---
EXAMINATION TYPE: XR chest 2V DATE OF EXAM: 05/14/2016 10:14 AM COMPARISON: Chest x-ray April 25, 2016. HISTORY: Chest pain today. TECHNIQUE: Frontal and lateral views of the chest are obtained. FINDINGS: There is chronic parenchymal change without suspicious focal air space opacity, pleural ef fusion, or pneumothorax seen. The cardiac silhouette size is stable and mildly enlarged. The osseo us structures are somewhat demineralized. Numerous surgical clips in the upper abdomen are noted on l ateral view. IMPRESSION: Chronic emphysematous change and cardiomegaly without acute pulmonary process.
[2016-05-14 10:24] LABS: INR 1.1 (<1.1); Partial Thromboplastin Time 24.6 sec (22.0-30.0); Prothrombin Time 10.7 sec (9.0-12.0)
[2016-05-14] MEDS: ACETAMINOPHEN TAB 500 MG TAB PO STA (10:39)
[2016-05-14 10:52] LABS: Creatine Kinase 145 U/L (30-135)
[2016-05-14 11:04] LABS: Creatine Kinase MB 2.2 ng/mL (0.0-2.4); Troponin I <0.012 ng/mL (0.000-0.034)
[2016-05-14 11:50] VITALS: BP 170/77; PULSE 98; RESP 16; TEMP 97.6
== END 2016-05-14 11:50 | disposition home or self-care (01) ==
LOC: EC 09:26
DX: R07.9 Chest pain, unspecified (principal); R06.00 Dyspnea, unspecified; F17.200 Nicotine dependence, unspecified, uncomplicated; I10 Essential (primary) hypertension; K21.9 Gastro-esophageal reflux disease without esophagitis; Z79.01 Long term (current) use of anticoagulants; Z79.51 Long term (current) use of inhaled steroids; Z79.899 Other long term (current) drug therapy; Z86.718 Personal history of other venous thrombosis and embolism; Z86.19 Personal history of other infectious and parasitic diseases
CPT/HCPCS: 36415; 71020; 80053; 82550; 82553; 83735; 83880; 84484; 85025; 85610; 85730; 93005; 99285

== ENCOUNTER 2016-05-24 11:03 | Emergency (ER) | payer MEDICARE, OTHER ==
[2016-05-24] MEDS ORDERED: SODIUM CHLORIDE 0.9% 1,000 ML IV STA (11:17)
--- NOTE | 2016-05-24 11:27 | ED ---
General Adult HPI - General Chief complaint: Chest Pain Stated complaint: CHEST PAIN, ANDREW Time Seen by Provider: 05/24/16 11:16 Source: patient, RN notes reviewed, old records reviewed Mode of arrival: ambulatory Limitations: no limitations - History of Present Illness Initial comments: This is a 65-year-old female year for evaluation of chest pain. Patient has significant medical history which includes multiple surgeries and high blood pressure. No prior heart attack. Patient states she woke up this morning feeling dizzy and lightheaded, maybe some chest pain. But does admit to increased anxiety earlier today. She states all of her symptoms at this time and resolved. Feeling better with no shortness of breath cough or congestion, at this time without chest pain - Related Data Home Medications Medication Instructions Recorded Confirmed Albuterol Sulfate [Proair Hfa] 2 puff INHALATION RT-Q4H PRN 06/27/15 05/24/16 Rivaroxaban [Xarelto] 20 mg PO DAILY 08/18/15 05/24/16 diphenhydrAMINE HCL [Benadryl] 25 mg PO DAILY PRN 10/21/15 05/24/16 Fluticasone/Salmeterol [Advair 1 puff INHALATION RT-BID 11/01/15 05/24/16 250-50 Diskus] Furosemide [Lasix] 40 mg PO BID PRN 04/25/16 05/24/16 ALPRAZolam [Xanax] 0.5 mg PO BID PRN 05/24/16 05/24/16 Previous Rx's Medication Instructions Recorded HYDROcodone/APAP 7.5-325MG [[place] 1 tab PO Q4H PRN #20 tab 04/26/16 7.5-325] Pantoprazole Sodium [Protonix] 40 mg PO DAILY #30 tablet. 04/26/16 LORazepam [Ativan] 1 mg PO BID PRN #30 tab 05/24/16 Allergies Allergy/AdvReac Type Severity Reaction Status Date / Time No Known Allergies Allergy Verified 05/24/16 11:59 Review of Systems ROS Statement: Those systems with pertinent positive or pertinent negative responses have been documented in the HPI. ROS Other: All systems not noted in ROS Statement are negative. Past Medical History Past Medical History: Deep Vein Thrombosis (DVT), GERD/Reflux, Hypertension, Liver Disease, Osteoarthritis (OA) Additional Past Medical History / Comment(s): DVT R leg 2006, hepatitis C, past IV heroin use, colonic polyp-benign, athritis multiple joints, FRANCIS, erythema nodosum History of Any Multi-Drug Resistant Organisms: None Reported Past Surgical History: Appendectomy, Bowel Resection, Breast Surgery, Cholecystectomy, Hysterectomy, Orthopedic Surgery, Tubal Ligation Additional Past Surgical History / Comment(s): Sigmoid resection due to diverticular dx, partial colonoscopy, LEFT KNEE ARTHROSCOPY, LEFT BREAST BX-NEG. Past Anesthesia/Blood Transfusion Reactions: No Reported Reaction Past Psychological History: Anxiety Additional Psychological History / Comment(s): Pt resides alone. She has a cane or walker she uses prn. She does not drive. She gets to [place] by bus or her daughter drives her. Smoking Status: Current every day smoker Past Alcohol Use History: Daily Additional Past Alcohol Use History / Comment(s): Pt states she started smoking in 1966 and is up to a ppd smoker. She states she drinks 1-2 beers nearly every day and last drank 2 days ago. Patient denies any recent street drug or marijuana use. She does not have a CPAP, nebulizer or oxygen at home. She is single. Past Drug Use History: None Reported Additional Drug Use History / Comment(s): Pt states she has used IV heroin in the past with last use when she was in her 30's. She states she has also used cocaine but not in the past 5 yrs. 10/26/15 drug screen + for cocaine. - Past Family History Mother Family Medical History: Cancer Additional Family Medical History / Comment(s): Mother at age 77 with history of CANCER OF LARYNX. CABG. FROM AN AORTIC ANEURYSM. Sister(s) Family Medical History: Cancer, Deep Vein Thrombosis (DVT) Additional Family Medical History / Comment(s): Uterine cancer. Patient has 2 sisters and one . She states her living sister is not doing well but does not know her medical problems. Father History Unknown: Yes Family Medical History: No Reported History, Unable to Obtain Additional Family Medical History / Comment(s): Dad but that she does not know his medical problems. Brother(s) Additional Family Medical History / Comment(s): She has one brother with COPD. Daughter(s) Additional Family Medical History / Comment(s): Patient has 4 children. One daughter from a motor vehicle accident. One daughter has had a stroke and myocardial infarction. General Exam Limitations: no limitations General appearance: alert, in no apparent distress, anxious Head exam: Present: atraumatic, normocephalic, normal inspection Eye exam: Present: normal appearance, PERRL, EOMI. Absent: scleral icterus, conjunctival injection, periorbital swelling ENT exam: Present: normal exam, mucous membranes moist Neck exam: Present: normal inspection. Absent: tenderness, meningismus, lymphadenopathy Respiratory exam: Present: normal lung sounds bilaterally. Absent: respiratory distress, wheezes, rales, rhonchi, stridor Cardiovascular Exam: Present: regular rate, normal rhythm, normal heart sounds. Absent: systolic murmur, diastolic murmur, rubs, gallop, clicks GI/Abdominal exam: Present: soft, normal bowel sounds. Absent: distended, tenderness, guarding, rebound, rigid Extremities exam: Present: normal inspection, full ROM, normal capillary refill. Absent: tenderness, pedal edema, joint swelling, calf tenderness Back exam: Present: normal inspection Neurological exam: Present: alert, oriented X3, CN II-XII intact Psychiatric exam: Present: normal affect, normal mood Skin exam: Present: warm, dry, intact, normal color. Absent: rash Course Vital Signs 05/24/16 05/24/16 05/24/16 11:09 13:56 14:28 Temperature 97.4 F L 97.7 F 97.8 F Pulse Rate 64 65 57 L Respiratory 20 18 18 Rate Blood Pressure 180/87 169/81 O2 Sat by Pulse 100 98 100 Oximetry - Reevaluation(s) Reevaluation #1: Patient remains without chest pain EKG Findings - EKG Comments: EKG Findings:: EKG shows normal sinus rhythm rate of 62, [place] 164, QRS 78, QTC 428 Medical Decision Making - Medical Decision Making 65 female year for evaluation of chest pain. Patient admits to increased anxiety, mild dizziness since she woke this morning. At this time patient that without symptoms, states she feels improved and will be discharged home - Lab Data Result diagrams: 05/24/16 12:15 05/24/16 12:15 Lab Results 05/24/16 05/24/16 05/24/16 Range/Units 12:15 12:15 12:15 WBC 5.9 (3.8-10.6) k/uL RBC 4.44 (3.80-5.40) m/uL Hgb 14.6 (11.4-16.0) gm/dL Hct 45.3 (34.0-46.0) % MCV 102.1 H (80.0-100.0) fL MCH 33.0 (25.0-35.0) pg MCHC 32.3 (31.0-37.0) g/dL RDW 13.2 (11.5-15.5) % Plt Count 224 (150-450) k/uL Neutrophils % 53 % Lymphocytes % 34 % Monocytes % 7 % Eosinophils % 1 % Basophils % 1 % Neutrophils # 3.1 (1.3-7.7) k/uL Lymphocytes # 2.0 (1.0-4.8) k/uL Monocytes # 0.4 (0-1.0) k/uL Eosinophils # 0.1 (0-0.7) k/uL Basophils # 0.0 (0-0.2) k/uL Macrocytosis Slight PT 13.1 H (9.0-12.0) sec INR 1.3 (<1.1) APTT 28.3 (22.0-30.0) sec Sodium 144 (137-145) mmol/L Potassium 4.6 (3.5-5.1) mmol/L Chloride 109 H (98-107) mmol/L Carbon Dioxide 23 (22-30) mmol/L Anion Gap 12 mmol/L BUN 14 (7-17) mg/dL Creatinine 0.89 (0.52-1.04) mg/dL Est GFR (MDRD) Af Amer >60 (>60 ml/min/1.73 sqM) Est GFR (MDRD) Non-Af >60 (>60 ml/min/1.73 sqM) Glucose 123 H (74-99) mg/dL Calcium 9.6 (8.4-10.2) mg/dL Magnesium 1.7 (1.6-2.3) mg/dL Total Bilirubin 0.9 (0.2-1.3) mg/dL AST 71 H (14-36) U/L ALT 55 H (9-52) U/L Alkaline Phosphatase 135 H (38-126) U/L Total Creatine Kinase (30-135) U/L CK-MB (CK-2) (0.0-2.4) ng/mL CK-MB (CK-2) Rel Index Troponin I (0.000-0.034) ng/mL Total Protein 7.6 (6.3-8.2) g/dL Albumin 4.0 (3.5-5.0) g/dL Lipase 81 (23-300) U/L 05/24/16 Range/Units 12:15 WBC (3.8-10.6) k/uL RBC (3.80-5.40) m/uL Hgb (11.4-16.0) gm/dL Hct (34.0-46.0) % MCV (80.0-100.0) fL MCH (25.0-35.0) pg MCHC (31.0-37.0) g/dL RDW (11.5-15.5) % Plt Count (150-450) k/uL Neutrophils % % Lymphocytes % % Monocytes % % Eosinophils % % Basophils % % Neutrophils # (1.3-7.7) k/uL Lymphocytes # (1.0-4.8) k/uL Monocytes # (0-1.0) k/uL Eosinophils # (0-0.7) k/uL Basophils # (0-0.2) k/uL Macrocytosis PT (9.0-12.0) sec INR (<1.1) APTT (22.0-30.0) sec Sodium (137-145) mmol/L Potassium (3.5-5.1) mmol/L Chloride (98-107) mmol/L Carbon Dioxide (22-30) mmol/L Anion Gap mmol/L BUN (7-17) mg/dL Creatinine (0.52-1.04) mg/dL Est GFR (MDRD) Af Amer (>60 ml/min/1.73 sqM) Est GFR (MDRD) Non-Af (>60 ml/min/1.73 sqM) Glucose (74-99) mg/dL Calcium (8.4-10.2) mg/dL Magnesium (1.6-2.3) mg/dL Total Bilirubin (0.2-1.3) mg/dL AST (14-36) U/L ALT (9-52) U/L Alkaline Phosphatase (38-126) U/L Total Creatine Kinase 66 (30-135) U/L CK-MB (CK-2) 1.9 (0.0-2.4) ng/mL CK-MB (CK-2) Rel Index 2.9 Troponin I <0.012 (0.000-0.034) ng/mL Total Protein (6.3-8.2) g/dL Albumin (3.5-5.0) g/dL Lipase (23-300) U/L - Radiology Data Radiology results: report reviewed, image reviewed Disposition Clinical Impression: Chronic pain, Atypical chest pain, Anxiety Disposition: HOME SELF-CARE Condition: Good Instructions: Chest Pain (ED), Anxiety (ED) Prescriptions: LORazepam [Ativan] 1 mg PO BID PRN #30 tab PRN Reason: Anxiety Referrals: Gal Aguilar MD [Primary Care Provider] - 1-2 days
[2016-05-24 12:46] LABS: Basophils % (A) 1 %; CH 33.6; Eosinophils # (A) 0.1 k/uL (0-0.7); Eosinophils % (A) 1 %; HCT 45.3 % (34.0-46.0); HDW 2.26; HGB 14.6 gm/dL (11.4-16.0); Luc # (Auto) 0.21; Luc % (Auto) 4; Lymphocytes % (A) 34 %; MCHC 32.3 g/dL (31.0-37.0); MCV 102.1 fL (80.0-100.0); Macrocytosis Slight; Mean Platelet Volume 8.5; Monocytes # (A) 0.4 k/uL (0-1.0); Monocytes % (A) 7 %; Neutrophils # (A) 3.1 k/uL (1.3-7.7); Neutrophils % (A) 53 %; RBC 4.44 m/uL (3.80-5.40); RDW 13.2 % (11.5-15.5); WBC 5.9 k/uL (3.8-10.6); WBC (Perox) 5.84
[2016-05-24 12:56] LABS: ALT 55 U/L (9-52); AST 71 U/L (14-36); Alkaline Phosphatase 135 U/L (38-126); Anion Gap 12 mmol/L; Blood Urea Nitrogen 14 mg/dL (7-17); Calcium 9.6 mg/dL (8.4-10.2); Carbon Dioxide 23 mmol/L (22-30); Chloride 109 mmol/L (98-107); Glucose 123 mg/dL (74-99); Magnesium 1.7 mg/dL (1.6-2.3); Non-African American GFR(MDRD) >60 (>60 ml/min/1.73 sqM); Potassium 4.6 mmol/L (3.5-5.1); Sodium 144 mmol/L (137-145); Total Bilirubin 0.9 mg/dL (0.2-1.3); Total Protein 7.6 g/dL (6.3-8.2)
[2016-05-24 13:21] LABS: Creatine Kinase 66 U/L (30-135)
[2016-05-24] MEDS ORDERED: LORazepam 1 MG TAB PO STA (13:31)
[2016-05-24 13:32] LABS: INR 1.3 (<1.1); Partial Thromboplastin Time 28.3 sec (22.0-30.0); Prothrombin Time 13.1 sec (9.0-12.0)
[2016-05-24 13:34] LABS: Creatine Kinase MB 1.9 ng/mL (0.0-2.4); Troponin I <0.012 ng/mL (0.000-0.034)
[2016-05-24 13:58] VITALS: RESP 18
--- NOTE | 2016-05-24 14:20 | XR ---
EXAMINATION TYPE: XR chest 2V DATE OF EXAM: 05/24/2016 12:39 PM COMPARISON: 05/14/2016 TECHNIQUE: PA and lateral views submitted. HISTORY: Chest pain FINDINGS: The lungs are clear and there is no pneumothorax, pleural effusion, or focal pneumonia. Hyperinflat ion suggests COPD. Degenerative change of the spine. Surgical clips in the abdomen. IMPRESSION: 1. No acute process.
[2016-05-24 14:29] VITALS: BP 169/81; PULSE 57; TEMP 97.8
== END 2016-05-24 14:28 | disposition home or self-care (01) ==
LOC: EC 11:03
DX: R07.89 Other chest pain (principal); G89.29 Other chronic pain; F41.9 Anxiety disorder, unspecified; I82.501 Chronic embolism and thrombosis of unspecified deep veins of right lower extremity; F17.200 Nicotine dependence, unspecified, uncomplicated; Z82.49 Family history of ischemic heart disease and other diseases of the circulatory system; Z79.01 Long term (current) use of anticoagulants; Z79.51 Long term (current) use of inhaled steroids
CPT/HCPCS: 36415; 71020; 80053; 82550; 82553; 83690; 83735; 84484; 85025; 85610; 85730; 93005; 99285

== ENCOUNTER 2016-06-23 08:29 | Emergency (ER) | payer MEDICARE, OTHER ==
[2016-06-23 08:36] VITALS: RESP 18
[2016-06-23] MEDS ORDERED: MORPHINE SULFATE 4 MG/ML SYRINGE IV STA (08:49)
[2016-06-23] MEDS ORDERED: HYDROmorphone 2 MG/ML 1 ML SYRINGE IM STA (08:57)
[2016-06-23] MEDS ORDERED: METOPROLOL TARTRATE 50 MG TAB PO STA (08:58)
--- NOTE | 2016-06-23 09:04 | ED ---
General Adult HPI - General Chief complaint: Chest Pain Stated complaint: CHEST PAIN LEFT SIDE Time Seen by Provider: 06/23/16 08:35 Source: patient, RN notes reviewed, old records reviewed Mode of arrival: EMS Limitations: no limitations - History of Present Illness Initial comments: This is a 65-year-old female ER for evaluation of chest pain. History of chest pain. Patient states relates something for pain. Patient states she has multiple ER visits for evaluation of similar symptoms, hospitalizations with no known cause. Patient has been episodic throughout the day, no shortness of breath no fevers no cough congestion, no diaphoresis. Patient is without pain medication at home - Related Data Home Medications Medication Instructions Recorded Confirmed Albuterol Sulfate [Proair Hfa] 2 puff INHALATION RT-Q4H PRN 06/27/15 06/23/16 Rivaroxaban [Xarelto] 20 mg PO DAILY 08/18/15 06/23/16 diphenhydrAMINE HCL [Benadryl] 25 mg PO DAILY PRN 10/21/15 06/23/16 Furosemide [Lasix] 40 mg PO BID PRN 04/25/16 06/23/16 Fluticasone/Salmeterol [Advair 2 puff INHALATION RT-BID 06/23/16 06/23/16 500-50 Diskus] Previous Rx's Medication Instructions Recorded Pantoprazole Sodium [Protonix] 40 mg PO DAILY #30 tablet. 04/26/16 LORazepam [Ativan] 1 mg PO BID PRN #30 tab 05/24/16 HYDROcodone/APAP 7.5-325MG [[place] 1 tab PO Q4H PRN #20 tab 06/23/16 7.5-325] Allergies Allergy/AdvReac Type Severity Reaction Status Date / Time No Known Allergies Allergy Verified 06/23/16 09:49 Review of Systems ROS Statement: Those systems with pertinent positive or pertinent negative responses have been documented in the HPI. ROS Other: All systems not noted in ROS Statement are negative. Past Medical History Past Medical History: Deep Vein Thrombosis (DVT), GERD/Reflux, Hypertension, Liver Disease, Osteoarthritis (OA) Additional Past Medical History / Comment(s): DVT R leg 2005, hepatitis C, past IV heroin use, colonic polyp-benign, athritis multiple joints, FRANCIS, erythema nodosum History of Any Multi-Drug Resistant Organisms: None Reported Past Surgical History: Appendectomy, Bowel Resection, Breast Surgery, Cholecystectomy, Hysterectomy, Orthopedic Surgery, Tubal Ligation Additional Past Surgical History / Comment(s): Sigmoid resection due to diverticular dx, partial colonoscopy, LEFT KNEE ARTHROSCOPY, LEFT BREAST BX-NEG. Past Anesthesia/Blood Transfusion Reactions: No Reported Reaction Past Psychological History: Anxiety Additional Psychological History / Comment(s): Pt resides alone. She has a cane or walker she uses prn. She does not drive. She gets to [place] by bus or her daughter drives her. Smoking Status: Current every day smoker Past Alcohol Use History: Daily Additional Past Alcohol Use History / Comment(s): Pt states she started smoking in 1966 and is up to a ppd smoker. She states she drinks 1-2 beers nearly every day and last drank 2 days ago. Patient denies any recent street drug or marijuana use. She does not have a CPAP, nebulizer or oxygen at home. She is single. Past Drug Use History: None Reported Additional Drug Use History / Comment(s): Pt states she has used IV heroin in the past with last use when she was in her 30's. She states she has also used cocaine but not in the past 5 yrs. 10/26/15 drug screen + for cocaine. - Past Family History Mother Family Medical History: Cancer Additional Family Medical History / Comment(s): Mother at age 77 with history of CANCER OF LARYNX. CABG. FROM AN AORTIC ANEURYSM. Sister(s) Family Medical History: Cancer, Deep Vein Thrombosis (DVT) Additional Family Medical History / Comment(s): Uterine cancer. Patient has 2 sisters and one . She states her living sister is not doing well but does not know her medical problems. Father History Unknown: Yes Family Medical History: No Reported History, Unable to Obtain Additional Family Medical History / Comment(s): Dad but that she does not know his medical problems. Brother(s) Additional Family Medical History / Comment(s): She has one brother with COPD. Daughter(s) Additional Family Medical History / Comment(s): Patient has 4 children. One daughter from a motor vehicle accident. One daughter has had a stroke and myocardial infarction. General Exam Limitations: no limitations General appearance: alert, in no apparent distress, obese Head exam: Present: atraumatic, normocephalic, normal inspection Eye exam: Present: normal appearance, PERRL, EOMI. Absent: scleral icterus, conjunctival injection, periorbital swelling ENT exam: Present: normal exam, mucous membranes moist Neck exam: Present: normal inspection. Absent: tenderness, meningismus, lymphadenopathy Respiratory exam: Present: normal lung sounds bilaterally. Absent: respiratory distress, wheezes, rales, rhonchi, stridor Cardiovascular Exam: Present: regular rate, normal rhythm, normal heart sounds. Absent: systolic murmur, diastolic murmur, rubs, gallop, clicks GI/Abdominal exam: Present: soft, normal bowel sounds. Absent: distended, tenderness, guarding, rebound, rigid Extremities exam: Present: normal inspection, full ROM, normal capillary refill. Absent: tenderness, pedal edema, joint swelling, calf tenderness Back exam: Present: normal inspection Neurological exam: Present: alert, oriented X3, CN II-XII intact Psychiatric exam: Present: normal affect, normal mood Skin exam: Present: warm, dry, intact, normal color. Absent: rash Course Vital Signs 06/23/16 06/23/16 06/23/16 08:33 08:37 09:28 Temperature 97.9 F Pulse Rate 70 70 Respiratory 18 18 18 Rate Blood Pressure 201/95 207/94 O2 Sat by Pulse 96 100 Oximetry 06/23/16 10:09 Temperature 97.5 F L Pulse Rate 64 Respiratory 18 Rate Blood Pressure 185/93 O2 Sat by Pulse 100 Oximetry - Reevaluation(s) Reevaluation #1: Prior hospitalizations for chest pain or is reviewed reviewed, benign cause EKG Findings - EKG Comments: EKG Findings:: EKG shows normal sinus rhythm at 65, ND 160, QRS 66, QTc 451 Medical Decision Making - Medical Decision Making 65 female ER for evaluation of chest pain. Acute and chronic chest pain, [place] pain. Patient given pain control here in emergency room will be discharged home - Lab Data Result diagrams: 06/23/16 09:10 06/23/16 09:10 Lab Results 06/23/16 06/23/16 06/23/16 Range/Units 09:10 09:10 09:10 WBC 5.2 (3.8-10.6) k/uL RBC 4.55 (3.80-5.40) m/uL Hgb 14.9 (11.4-16.0) gm/dL Hct 45.5 (34.0-46.0) % MCV 100.0 (80.0-100.0) fL MCH 32.7 (25.0-35.0) pg MCHC 32.7 (31.0-37.0) g/dL RDW 12.3 (11.5-15.5) % Plt Count 201 (150-450) k/uL Neutrophils % 44 % Lymphocytes % 42 % Monocytes % 6 % Eosinophils % 3 % Basophils % 1 % Neutrophils # 2.3 (1.3-7.7) k/uL Lymphocytes # 2.2 (1.0-4.8) k/uL Monocytes # 0.3 (0-1.0) k/uL Eosinophils # 0.2 (0-0.7) k/uL Basophils # 0.1 (0-0.2) k/uL PT 12.0 (9.0-12.0) sec INR 1.2 (<1.1) APTT 25.9 (22.0-30.0) sec D-Dimer 1.14 H (<0.60) mg/L FEU Sodium 141 (137-145) mmol/L Potassium 4.7 (3.5-5.1) mmol/L Chloride 108 H (98-107) mmol/L Carbon Dioxide 21 L (22-30) mmol/L Anion Gap 12 mmol/L BUN 17 (7-17) mg/dL Creatinine 0.78 (0.52-1.04) mg/dL Est GFR (MDRD) Af Amer >60 (>60 ml/min/1.73 sqM) Est GFR (MDRD) Non-Af >60 (>60 ml/min/1.73 sqM) Glucose 116 H (74-99) mg/dL Calcium 9.8 (8.4-10.2) mg/dL Magnesium 1.7 (1.6-2.3) mg/dL Total Bilirubin 1.1 (0.2-1.3) mg/dL AST 94 H (14-36) U/L ALT 57 H (9-52) U/L Alkaline Phosphatase 220 H (38-126) U/L Total Creatine Kinase (30-135) U/L CK-MB (CK-2) (0.0-2.4) ng/mL CK-MB (CK-2) Rel Index Troponin I (0.000-0.034) ng/mL NT-Pro-B Natriuret Pep pg/mL Total Protein 7.9 (6.3-8.2) g/dL Albumin 4.1 (3.5-5.0) g/dL Lipase 105 (23-300) U/L 06/23/16 06/23/16 Range/Units 09:10 09:10 WBC (3.8-10.6) k/uL RBC (3.80-5.40) m/uL Hgb (11.4-16.0) gm/dL Hct (34.0-46.0) % MCV (80.0-100.0) fL MCH (25.0-35.0) pg MCHC (31.0-37.0) g/dL RDW (11.5-15.5) % Plt Count (150-450) k/uL Neutrophils % % Lymphocytes % % Monocytes % % Eosinophils % % Basophils % % Neutrophils # (1.3-7.7) k/uL Lymphocytes # (1.0-4.8) k/uL Monocytes # (0-1.0) k/uL Eosinophils # (0-0.7) k/uL Basophils # (0-0.2) k/uL PT (9.0-12.0) sec INR (<1.1) APTT (22.0-30.0) sec D-Dimer (<0.60) mg/L FEU Sodium (137-145) mmol/L Potassium (3.5-5.1) mmol/L Chloride (98-107) mmol/L Carbon Dioxide (22-30) mmol/L Anion Gap mmol/L BUN (7-17) mg/dL Creatinine (0.52-1.04) mg/dL Est GFR (MDRD) Af Amer (>60 ml/min/1.73 sqM) Est GFR (MDRD) Non-Af (>60 ml/min/1.73 sqM) Glucose (74-99) mg/dL Calcium (8.4-10.2) mg/dL Magnesium (1.6-2.3) mg/dL Total Bilirubin (0.2-1.3) mg/dL AST (14-36) U/L ALT (9-52) U/L Alkaline Phosphatase (38-126) U/L Total Creatine Kinase 204 H (30-135) U/L CK-MB (CK-2) 3.0 H* (0.0-2.4) ng/mL CK-MB (CK-2) Rel Index 1.5 Troponin I <0.012 (0.000-0.034) ng/mL NT-Pro-B Natriuret Pep 39 pg/mL Total Protein (6.3-8.2) g/dL Albumin (3.5-5.0) g/dL Lipase (23-300) U/L - Radiology Data Radiology results: report reviewed (Chest x-ray is negative for acute disease), image reviewed Disposition Clinical Impression: Morbid obesity, Chronic pain, Chest pain Disposition: HOME SELF-CARE Condition: Good Instructions: Costochondritis (ED), Chest Pain (ED) Prescriptions: HYDROcodone/APAP 7.5-325MG [[place] 7.5-325] 1 tab PO Q4H PRN #20 tab PRN Reason: Pain Referrals: None,Stated [Primary Care Provider] - 1-2 days
[2016-06-23 09:21] LABS: Basophils # (A) 0.1 k/uL (0-0.2); Basophils % (A) 1 %; CH 32.8; CHCM 32.9; Eosinophils # (A) 0.2 k/uL (0-0.7); Eosinophils % (A) 3 %; HCT 45.5 % (34.0-46.0); HDW 2.32; HGB 14.9 gm/dL (11.4-16.0); Luc # (Auto) 0.19; Luc % (Auto) 4; Lymphocytes # (A) 2.2 k/uL (1.0-4.8); Lymphocytes % (A) 42 %; MCH 32.7 pg (25.0-35.0); MCHC 32.7 g/dL (31.0-37.0); Mean Platelet Volume 6.9; Monocytes # (A) 0.3 k/uL (0-1.0); Monocytes % (A) 6 %; Neutrophils # (A) 2.3 k/uL (1.3-7.7); Neutrophils % (A) 44 %; RBC 4.55 m/uL (3.80-5.40); RDW 12.3 % (11.5-15.5); WBC 5.2 k/uL (3.8-10.6); WBC (Perox) 5.23
[2016-06-23 09:29] LABS: INR 1.2 (<1.1); Partial Thromboplastin Time 25.9 sec (22.0-30.0)
[2016-06-23 09:31] LABS: Anion Gap 12 mmol/L; Calcium 9.8 mg/dL (8.4-10.2); Carbon Dioxide 21 mmol/L (22-30); Chloride 108 mmol/L (98-107); Glucose 116 mg/dL (74-99); Non-African American GFR(MDRD) >60 (>60 ml/min/1.73 sqM); Sodium 141 mmol/L (137-145); Total Bilirubin 1.1 mg/dL (0.2-1.3); Total Protein 7.9 g/dL (6.3-8.2)
[2016-06-23 09:33] LABS: ALT 57 U/L (9-52); AST 94 U/L (14-36); Alkaline Phosphatase 220 U/L (38-126); Blood Urea Nitrogen 17 mg/dL (7-17); Potassium 4.7 mmol/L (3.5-5.1)
[2016-06-23 09:34] LABS: Magnesium 1.7 mg/dL (1.6-2.3)
[2016-06-23 09:36] LABS: Creatine Kinase 204 U/L (30-135)
[2016-06-23 09:49] LABS: Troponin I <0.012 ng/mL (0.000-0.034)
--- NOTE | 2016-06-23 09:58 | XR ---
EXAMINATION TYPE: XR chest 2V DATE OF EXAM: 06/23/2016 9:48 AM COMPARISON: Prior chest x-ray 24 May 2016 HISTORY: Chest pain TECHNIQUE: Frontal and lateral views of the chest are obtained. FINDINGS: There is no focal air space opacity, pleural effusion, or pneumothorax seen. There are pro minent lung volumes. There are overlying cardiac leads and surgical clips in the right upper quadrant . Eventration of the right hemidiaphragm suspected. The cardiac silhouette size is within normal mckay its. The osseous structures are intact. IMPRESSION: No acute cardiopulmonary process.
[2016-06-23 10:10] VITALS: BP 185/93; PULSE 64; TEMP 97.5
== END 2016-06-23 10:20 | disposition home or self-care (01) ==
LOC: EC 08:29
DX: R07.9 Chest pain, unspecified (principal); G89.29 Other chronic pain; E66.01 Morbid (severe) obesity due to excess calories; Z68.31 Body mass index [BMI] 31.0-31.9, adult; I10 Essential (primary) hypertension; F17.200 Nicotine dependence, unspecified, uncomplicated; Z79.01 Long term (current) use of anticoagulants; Z79.51 Long term (current) use of inhaled steroids; Z86.718 Personal history of other venous thrombosis and embolism; Z82.49 Family history of ischemic heart disease and other diseases of the circulatory system
CPT/HCPCS: 36415; 93005; 85379; 83880; 80053; 82550; 82553; 83690; 83735; 84484; 85025; 85610; 85730; 71020; 99285; 96372; J1170

== ENCOUNTER 2016-08-07 10:12 | Emergency (ER) | payer MEDICARE, OTHER ==
[2016-08-07] MEDS ORDERED: HYDROcodone/APAP 5-325MG 1 EACH TAB PO STA (11:07)
[2016-08-07] MEDS ORDERED: FAMOTIDINE 20 MG TAB PO STA (11:07)
--- NOTE | 2016-08-07 11:13 | ED ---
Extremity Problem HPI - General Chief complaint: Extremity Problem,Nontraumatic Stated complaint: leg pain, heartburn Time Seen by Provider: 08/07/16 10:50 Source: patient, RN notes reviewed Mode of arrival: wheelchair Limitations: no limitations - History of Present Illness Initial comments: Patient is 66-year-old female presents to the emergency room for evaluation of right leg pain. Patient states she's had a wound on her right leg for the past year. Patient states following up at the wound center. Patient states she was recently on antibiotics last month. Patient states she's been having increasing pain. Patient states she had an appointment today at the Wound Center but decided to come here instead because of increasing pain. Patient states she takes [place] at home with no relief of symptoms. Patient denies any increasing swelling or draining from the area. Patient states she's been applying a cream prescribed to her with relief of symptoms. Patient denies any numbness or tingling in her toes. Patient denies fevers or chills. - Related Data Home Medications Medication Instructions Recorded Confirmed Albuterol Sulfate [Proair Hfa] 2 puff INHALATION RT-Q4H PRN 06/27/15 08/07/16 Rivaroxaban [Xarelto] 20 mg PO DAILY 08/18/15 08/07/16 diphenhydrAMINE HCL [Benadryl] 25 mg PO DAILY PRN 10/21/15 08/07/16 Furosemide [Lasix] 40 mg PO BID PRN 04/25/16 08/07/16 Fluticasone/Salmeterol [Advair 2 puff INHALATION RT-BID 06/23/16 08/07/16 500-50 Diskus] ALPRAZolam [Xanax] 0.25 mg PO BID PRN 07/17/16 08/07/16 Loratadine [Claritin] 10 mg PO DAILY 07/17/16 08/07/16 Previous Rx's Medication Instructions Recorded Pantoprazole Sodium [Protonix] 40 mg PO DAILY #30 tablet. 04/26/16 LORazepam [Ativan] 1 mg PO BID PRN #30 tab 05/24/16 HYDROcodone/APAP 7.5-325MG [[place] 1 tab PO Q4H PRN #20 tab 06/23/16 7.5-325] Allergies Allergy/AdvReac Type Severity Reaction Status Date / Time No Known Allergies Allergy Verified 08/07/16 10:48 Review of Systems ROS Statement: Those systems with pertinent positive or pertinent negative responses have been documented in the HPI. ROS Other: All systems not noted in ROS Statement are negative. Past Medical History Past Medical History: Chest Pain / Angina, Deep Vein Thrombosis (DVT), GERD/ Reflux, Hypertension, Liver Disease, Osteoarthritis (OA) Additional Past Medical History / Comment(s): DVT R leg 2006, hepatitis C, past IV heroin use, colonic polyp-benign, athritis multiple joints, FRANCIS, erythema nodosum History of Any Multi-Drug Resistant Organisms: None Reported Past Surgical History: Appendectomy, Bowel Resection, Breast Surgery, Cholecystectomy, Hysterectomy, Orthopedic Surgery, Tubal Ligation Additional Past Surgical History / Comment(s): Sigmoid resection due to diverticular dx, partial colonoscopy, LEFT KNEE ARTHROSCOPY, LEFT BREAST BX-NEG. Past Anesthesia/Blood Transfusion Reactions: No Reported Reaction Past Psychological History: Anxiety Additional Psychological History / Comment(s): Pt resides alone. She has a cane or walker she uses prn. She does not drive. She gets to [place] by bus or her daughter drives her. Smoking Status: Current every day smoker Past Alcohol Use History: Daily Additional Past Alcohol Use History / Comment(s): Pt states she started smoking in 1966 and is up to a ppd smoker. She states she drinks 1-2 beers nearly every day and last drank 2 days ago. Patient denies any recent street drug or marijuana use. She does not have a CPAP, nebulizer or oxygen at home. She is single. Past Drug Use History: None Reported Additional Drug Use History / Comment(s): Pt states she has used IV heroin in the past with last use when she was in her 30's. She states she has also used cocaine but not in the past 5 yrs. 10/26/15 drug screen + for cocaine. - Past Family History Mother Family Medical History: Cancer Additional Family Medical History / Comment(s): Mother at age 77 with history of CANCER OF LARYNX. CABG. FROM AN AORTIC ANEURYSM. Sister(s) Family Medical History: Cancer, Deep Vein Thrombosis (DVT) Additional Family Medical History / Comment(s): Uterine cancer. Patient has 2 sisters and one . She states her living sister is not doing well but does not know her medical problems. Father History Unknown: Yes Family Medical History: No Reported History, Unable to Obtain Additional Family Medical History / Comment(s): Dad but that she does not know his medical problems. Brother(s) Additional Family Medical History / Comment(s): She has one brother with COPD. Daughter(s) Additional Family Medical History / Comment(s): Patient has 4 children. One daughter from a motor vehicle accident. One daughter has had a stroke and myocardial infarction. General Exam - General Exam Comments Initial Comments: sitting in exam room, no acute distress. Limitations: no limitations General appearance: alert, in no apparent distress Head exam: Present: atraumatic, normocephalic, normal inspection Eye exam: Present: normal appearance ENT exam: Present: normal exam Neck exam: Present: normal inspection Respiratory exam: Present: normal lung sounds bilaterally. Absent: respiratory distress Cardiovascular Exam: Present: regular rate, normal rhythm, normal heart sounds Back exam: Present: normal inspection Neurological exam: Present: alert, oriented X3, CN II-XII intact, normal gait Psychiatric exam: Present: normal affect, normal mood Skin exam: Present: warm, dry, other (small ulcerating lesion over right anterior hernandez) Course Vital Signs 08/07/16 08/07/16 08/07/16 10:16 10:33 12:30 Temperature 98.1 F 97.6 F 98.0 F Pulse Rate 75 72 Respiratory 18 16 Rate Blood Pressure 161/83 162/77 O2 Sat by Pulse 98 98 Oximetry Medical Decision Making - Medical Decision Making Patient is a 56-year-old female presents to the emergency room for evaluation of right leg pain. Patient has apparently had a stage III chronic also for the past year. Patient is being followed up with the wound care center. X-ray shows no sign of osteomyelitis. No erythema, increased swelling or drainage from the area. I did advise patient to follow-up with wound Center for further management and evaluation. Patient can continue with her current wound care regimen. Patient states she understands everything that was discussed with her. Return parameters discussed. Case discussed with Dr. Lopez. - Radiology Data Radiology results: report reviewed, image reviewed Disposition Clinical Impression: Leg wound, right Disposition: HOME SELF-CARE Condition: Good Instructions: Chronic Wound Care (ED) Additional Instructions: Please follow up at Wound Center. Continue with current at-home medications. If any new symptom arises, symptoms worsen or fever develops return to ER as soon as possible. Referrals: Karin Sal MD [Primary Care Provider] - 1-2 days Time of Disposition: 12:22
--- NOTE | 2016-08-07 11:38 | XR ---
EXAMINATION TYPE: XR tibia fibula RT DATE OF EXAM: 08/07/2016 CLINICAL HISTORY: Pain, no known injury TECHNIQUE: Two views of the right leg are obtained. COMPARISON: Right knee x-ray December 25, 2007. FINDINGS: There is no acute fracture or dislocation seen in the right tibia or fibula. Osseous stru ctures are somewhat demineralized. Tibial condylar spurring is redemonstrated. Soft tissue phlebolith s and dystrophic ossification at several levels is redemonstrated, largest near fibular head is uncha nged from prior radiograph. IMPRESSION: There is no acute fracture or dislocation seen in the right tibia or fibula.
[2016-08-07 13:50] VITALS: BP 162/77; PULSE 72; RESP 16; TEMP 98
== END 2016-08-07 12:30 | disposition home or self-care (01) ==
LOC: EC 10:12
DX: S81.801A Unspecified open wound, right lower leg, initial encounter (principal); F17.200 Nicotine dependence, unspecified, uncomplicated; Z86.718 Personal history of other venous thrombosis and embolism; Z79.51 Long term (current) use of inhaled steroids; Z79.01 Long term (current) use of anticoagulants; Z79.899 Other long term (current) drug therapy; X58.XXXA Exposure to other specified factors, initial encounter
CPT/HCPCS: 99283

== ENCOUNTER → 2016-08-26 | Outpatient (CLI) | payer MEDICARE, OTHER ==
--- NOTE | 2016-08-26 22:05 | MR ---
EXAMINATION TYPE: MR lumbar spine wo con DATE OF EXAM: 08/26/2016 COMPARISON: CT abdomen pelvis December 01, 2015 HISTORY: Low back pain per order. Pain for years going into left thigh and buttocks and right calf pe r patient. TECHNIQUE: Multiplanar, multisequence imaging of the lumbar spine is performed without IV contrast. FINDINGS: Sagittal images of the lumbar spine show vertebral body heights and alignment to appear sat isfactory. There is multilevel disc desiccation. There is mild disc space narrowing L3-L4 level. Ther e is mild to moderate disc space narrowing L4-L5 level. No large posterior disc herniations are seen on sagittal images. The conus medullaris is normal in position and signal in the in inferior L1 level . The bone marrow signal intensity is within normal limits. Mild multilevel anterior spurring is pre sent. Axial images show the T12-L1, L1-L2, and L2-L3 levels to appear within normal limits. Axial images at the L3-L4 level show mild broad disc bulge minimally effacing anterior thecal sac and causing mild left greater than right anterior-inferior neural foraminal narrowing. Mild facet degene rative changes are present bilaterally at this level. Axial images at L4-L5 level show mild facet degenerative changes and ligamentum flavum hypertrophy bi laterally. There is mild broad disc bulge causing mild bilateral anterior inferior neural foraminal n arrowing. Encroachment on right L4 nerve is difficult to exclude on sagittal image 11 and axial image 8. Axial images at L5-S1 level show mild facet degenerative changes bilaterally. There is small central disc protrusion seen. Bilateral neural foramina are patent. IMPRESSION: Multilevel degenerative changes in the lumbar spine as detailed above most prominent L3-L 4 and L4-L5 levels, possible effacement right L4 nerve is noted.
== END | disposition home or self-care (01) ==
LOC: RADMRIMAIN 15:09
PROVIDERS: ATTEND Nurse Practitioner Family
DX: M47.816 Spondylosis without myelopathy or radiculopathy, lumbar region (principal)
CPT/HCPCS: 72148

== ENCOUNTER → 2016-08-26 | Outpatient (CLI) | payer MEDICARE, OTHER ==
--- NOTE | 2016-08-26 15:07 | US ---
EXAMINATION TYPE: US venous doppler duplex LE RT DATE OF EXAM: 08/26/2016 2:53 PM COMPARISON: NONE CLINICAL HISTORY: R60.0 EDEMA,M79.661 PAIN IN RT LOWER LEG,Z86.718 HX DVT. SIDE PERFORMED: Right TECHNIQUE: The lower extremity deep venous system is examined utilizing real time linear array sonog miranda with graded compression, doppler sonography and color-flow sonography. VESSELS IMAGED: External Iliac Vein (EIV) Common Femoral Vein Deep Femoral Vein Greater Saphenous Vein * Femoral Vein Popliteal Vein Small Saphenous Vein * Proximal Calf Veins (* superficial vessels) Right Leg: Negative for DVT Grayscale, color doppler, and spectral doppler imaging performed of the deep veins of the lower extre mities. There is normal flow, compressibility, and vascular waveforms in the right lower extremity. IMPRESSION: No ultrasound evident for acute DVT in the right lower extremity.
== END | disposition home or self-care (01) ==
LOC: RADUSWWP 14:23
PROVIDERS: ATTEND Family Medicine
DX: R60.0 Localized edema (principal); M79.661 Pain in right lower leg; Z86.718 Personal history of other venous thrombosis and embolism
CPT/HCPCS: 72148

== ENCOUNTER 2016-09-30 23:57 | Emergency (ER) | payer MEDICARE, OTHER ==
[2016-10-01 00:14] VITALS: RESP 18; TEMP 97.5
[2016-10-01] MEDS ORDERED: HYDROcodone/APAP 7.5-325MG 1 EACH TAB PO ONE (00:50)
[2016-10-01 02:04] LABS: Basophils # (A) 0.1 k/uL (0-0.2); Basophils % (A) 1 %; CH 31.8; CHCM 32.4; Eosinophils # (A) 0.2 k/uL (0-0.7); Eosinophils % (A) 2 %; HDW 2.49; HGB 15.4 gm/dL (11.4-16.0); Luc # (Auto) 0.17; Luc % (Auto) 3; Lymphocytes # (A) 2.6 k/uL (1.0-4.8); Lymphocytes % (A) 37 %; MCH 32.1 pg (25.0-35.0); MCHC 32.7 g/dL (31.0-37.0); MCV 98.3 fL (80.0-100.0); Mean Platelet Volume 7.4; Monocytes # (A) 0.3 k/uL (0-1.0); Monocytes % (A) 5 %; Neutrophils # (A) 3.6 k/uL (1.3-7.7); Neutrophils % (A) 52 %; RBC 4.78 m/uL (3.80-5.40); RDW 14.1 % (11.5-15.5); WBC 6.9 k/uL (3.8-10.6); WBC (Perox) 6.38
[2016-10-01 02:13] LABS: ALT 54 U/L (9-52); AST 65 U/L (14-36); Alkaline Phosphatase 163 U/L (38-126); Anion Gap 12 mmol/L; Blood Urea Nitrogen 12 mg/dL (7-17); Calcium 10.2 mg/dL (8.4-10.2); Carbon Dioxide 24 mmol/L (22-30); Chloride 105 mmol/L (98-107); Glucose 112 mg/dL (74-99); Non-African American GFR(MDRD) >60 (>60 ml/min/1.73 sqM); Potassium 4.3 mmol/L (3.5-5.1); Sodium 141 mmol/L (137-145); Total Bilirubin 0.7 mg/dL (0.2-1.3); Total Protein 7.9 g/dL (6.3-8.2)
[2016-10-01 02:15] LABS: INR 1.2 (<1.2); Partial Thromboplastin Time 26.6 sec (22.0-30.0); Prothrombin Time 11.6 sec (9.0-12.0)
[2016-10-01 02:22] LABS: Creatine Kinase 108 U/L (30-135)
--- NOTE | 2016-10-01 02:31 | XR ---
EXAM: XR Chest, 2 Views CLINICAL HISTORY: chest pain, hx of hypertension, breast surgery, TECHNIQUE: Frontal and lateral views of the chest. COMPARISON: Chest x-ray 06/23/16 FINDINGS: Lungs: Mild bibasilar lung atelectasis. Questionable tiny left pleural effusion. Pleural space: See above. Heart: Unremarkable. No cardiomegaly. Mediastinum: Unremarkable. Bones/joints: Unremarkable. Upper abdomen: Surgical clips upper abdominal area on the lateral view. IMPRESSION: Mild bibasilar lung atelectasis. Questionable tiny left pleural effusion.
[2016-10-01 02:34] LABS: Creatine Kinase MB 1.5 ng/mL (0.0-2.4); Troponin I <0.012 ng/mL (0.000-0.034)
--- NOTE | 2016-10-01 02:48 | ED ---
General Adult HPI - General Chief complaint: Chest Pain Stated complaint: Chest Pain Time Seen by Provider: 10/01/16 00:24 Source: patient, EMS, RN notes reviewed, old records reviewed Mode of arrival: EMS Limitations: no limitations - History of Present Illness Initial comments: 66-year-old female presenting with anterior chest pain and mild cough. Patient describes the pain is sharp in nature, mild to moderate severity. Nonradiating. No nausea vomiting. Patient does is. Some shortness of breath, she does have a history of tobacco use and COPD as well. This does not feel like a COPD flare. She also has history of DVT and is currently on Cymbalta. Secondary complaint is a nonhealing ulcer on her right lower extremity. Patient follows at the wound clinic and was evaluated a few days ago. She states she has pain but the ulcer has been healing appropriately. She also states she takes [place] for pain and has been out of these for the past several days. She has an appointment with a pain doctor this coming . 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 - Related Data Home Medications Medication Instructions Recorded Confirmed Albuterol Sulfate [Proair Hfa] 2 puff INHALATION RT-Q4H PRN 06/27/15 09/25/16 Rivaroxaban [Xarelto] 20 mg PO DAILY 08/18/15 09/25/16 diphenhydrAMINE HCL [Benadryl] 25 mg PO DAILY PRN 10/21/15 09/25/16 Furosemide [Lasix] 40 mg PO BID PRN 04/25/16 09/25/16 Fluticasone/Salmeterol [Advair 2 puff INHALATION RT-BID 06/23/16 09/25/16 500-50 Diskus] ALPRAZolam [Xanax] 0.25 mg PO BID PRN 07/17/16 09/25/16 Loratadine [Claritin] 10 mg PO DAILY 07/17/16 09/25/16 Previous Rx's Medication Instructions Recorded Pantoprazole Sodium [Protonix] 40 mg PO DAILY #30 tablet. 04/26/16 LORazepam [Ativan] 1 mg PO BID PRN #30 tab 05/24/16 HYDROcodone/APAP 7.5-325MG [[place] 1 tab PO Q4H PRN #20 tab 06/23/16 7.5-325] HYDROcodone/APAP 7.5-325MG [[place] 1 tab PO Q6HR PRN #12 tab 10/01/16 7.5-325] Allergies Allergy/AdvReac Type Severity Reaction Status Date / Time No Known Allergies Allergy Verified 10/01/16 00:12 Review of Systems ROS Statement: Those systems with pertinent positive or pertinent negative responses have been documented in the HPI. ROS Other: All systems not noted in ROS Statement are negative. Past Medical History Past Medical History: Chest Pain / Angina, Deep Vein Thrombosis (DVT), GERD/ Reflux, Hypertension, Liver Disease, Osteoarthritis (OA) Additional Past Medical History / Comment(s): DVT R leg 2006, hepatitis C, past IV heroin use, colonic polyp-benign, athritis multiple joints, FRANCIS, erythema nodosum History of Any Multi-Drug Resistant Organisms: None Reported Past Surgical History: Appendectomy, Bowel Resection, Breast Surgery, Cholecystectomy, Hysterectomy, Orthopedic Surgery, Tubal Ligation Additional Past Surgical History / Comment(s): Sigmoid resection due to diverticular dx, partial colonoscopy, LEFT KNEE ARTHROSCOPY, LEFT BREAST BX-NEG. Past Anesthesia/Blood Transfusion Reactions: No Reported Reaction Past Psychological History: Anxiety Smoking Status: Current every day smoker Past Alcohol Use History: Daily Past Drug Use History: None Reported - Past Family History Mother Family Medical History: Cancer Additional Family Medical History / Comment(s): Mother at age 77 with history of CANCER OF LARYNX. CABG. FROM AN AORTIC ANEURYSM. Sister(s) Family Medical History: Cancer, Deep Vein Thrombosis (DVT) Additional Family Medical History / Comment(s): Uterine cancer. Patient has 2 sisters and one . She states her living sister is not doing well but does not know her medical problems. Father History Unknown: Yes Family Medical History: No Reported History, Unable to Obtain Additional Family Medical History / Comment(s): Dad but that she does not know his medical problems. Brother(s) Additional Family Medical History / Comment(s): She has one brother with COPD. Daughter(s) Additional Family Medical History / Comment(s): Patient has 4 children. One daughter from a motor vehicle accident. One daughter has had a stroke and myocardial infarction. General Exam Limitations: no limitations General appearance: alert, in no apparent distress Head exam: Present: atraumatic, normocephalic Eye exam: Present: normal appearance, PERRL ENT exam: Present: normal exam, mucous membranes moist Neck exam: Present: normal inspection, full ROM. Absent: tenderness Respiratory exam: Present: normal lung sounds bilaterally. Absent: respiratory distress, wheezes, rales, rhonchi Cardiovascular Exam: Present: regular rate, normal rhythm GI/Abdominal exam: Present: soft. Absent: distended, tenderness Extremities exam: Present: normal inspection, pedal edema (Right lower extremity , patient had wound wrapped several days ago at the clinic, ) Back exam: Present: normal inspection, full ROM Neurological exam: Present: alert, oriented X3 Psychiatric exam: Present: normal affect, normal mood Skin exam: Present: warm, dry. Absent: cyanosis, diaphoretic Course Vital Signs 10/01/16 10/01/16 00:12 01:36 Temperature 97.5 F L Pulse Rate 62 72 Respiratory 18 18 Rate Blood Pressure 183/81 155/73 O2 Sat by Pulse 97 100 Oximetry - Reevaluation(s) Reevaluation #1: 10/01/16 02:44 On reevaluation patient is feeling better. She denies chest pain. EKG Findings - EKG Comments: EKG Findings:: EKG shows normal sinus rhythm with sinus arrhythmia, ventricular rate of 61, NM interval 170, QRS duration 70, QTC 446, there is no ST segment elevation or depression. Medical Decision Making - Medical Decision Making 66-year-old female presenting with chief complaint of sharp chest pain, nonradiating, no associated symptoms. Patient is a smoker and has COPD, this does not appear to be a COPD exacerbation. Chest pain is atypical. She reports having a normal stress test 2 months ago. She does have a history of chest pain and has been evaluated in the emergency department on several occasions. She also admits to being out of her pain medication for the past several days. She is given one [place] in the emergency department on reevaluation she is pain-free. Chest x-ray shows mild atelectasis, noncontributory to chief complaint. Laboratory studies included CBC, CMP, and cardiac enzymes is unremarkable. Patient has an appointment with a pain specialist this upcoming week, she is encouraged to maintain that appointment. She will also follow up with her primary care physician. - Lab Data Result diagrams: 10/01/16 01:50 10/01/16 01:50 Lab Results 10/01/16 10/01/16 10/01/16 Range/Units 01:50 01:50 01:50 WBC 6.9 (3.8-10.6) k/uL RBC 4.78 (3.80-5.40) m/uL Hgb 15.4 (11.4-16.0) gm/dL Hct 47.0 H (34.0-46.0) % MCV 98.3 (80.0-100.0) fL MCH 32.1 (25.0-35.0) pg MCHC 32.7 (31.0-37.0) g/dL RDW 14.1 (11.5-15.5) % Plt Count 280 (150-450) k/uL Neutrophils % 52 % Lymphocytes % 37 % Monocytes % 5 % Eosinophils % 2 % Basophils % 1 % Neutrophils # 3.6 (1.3-7.7) k/uL Lymphocytes # 2.6 (1.0-4.8) k/uL Monocytes # 0.3 (0-1.0) k/uL Eosinophils # 0.2 (0-0.7) k/uL Basophils # 0.1 (0-0.2) k/uL PT 11.6 (9.0-12.0) sec INR 1.2 H (<1.2) APTT 26.6 (22.0-30.0) sec Sodium 141 (137-145) mmol/L Potassium 4.3 (3.5-5.1) mmol/L Chloride 105 (98-107) mmol/L Carbon Dioxide 24 (22-30) mmol/L Anion Gap 12 mmol/L BUN 12 (7-17) mg/dL Creatinine 0.90 (0.52-1.04) mg/dL Est GFR (MDRD) Af Amer >60 (>60 ml/min/1.73 sqM) Est GFR (MDRD) Non-Af >60 (>60 ml/min/1.73 sqM) Glucose 112 H (74-99) mg/dL Calcium 10.2 (8.4-10.2) mg/dL Magnesium 2.0 (1.6-2.3) mg/dL Total Bilirubin 0.7 (0.2-1.3) mg/dL AST 65 H (14-36) U/L ALT 54 H (9-52) U/L Alkaline Phosphatase 163 H (38-126) U/L Total Creatine Kinase (30-135) U/L CK-MB (CK-2) (0.0-2.4) ng/mL CK-MB (CK-2) Rel Index Troponin I (0.000-0.034) ng/mL NT-Pro-B Natriuret Pep pg/mL Total Protein 7.9 (6.3-8.2) g/dL Albumin 4.3 (3.5-5.0) g/dL 10/01/16 10/01/16 Range/Units 01:50 01:50 WBC (3.8-10.6) k/uL RBC (3.80-5.40) m/uL Hgb (11.4-16.0) gm/dL Hct (34.0-46.0) % MCV (80.0-100.0) fL MCH (25.0-35.0) pg MCHC (31.0-37.0) g/dL RDW (11.5-15.5) % Plt Count (150-450) k/uL Neutrophils % % Lymphocytes % % Monocytes % % Eosinophils % % Basophils % % Neutrophils # (1.3-7.7) k/uL Lymphocytes # (1.0-4.8) k/uL Monocytes # (0-1.0) k/uL Eosinophils # (0-0.7) k/uL Basophils # (0-0.2) k/uL PT (9.0-12.0) sec INR (<1.2) APTT (22.0-30.0) sec Sodium (137-145) mmol/L Potassium (3.5-5.1) mmol/L Chloride (98-107) mmol/L Carbon Dioxide (22-30) mmol/L Anion Gap mmol/L BUN (7-17) mg/dL Creatinine (0.52-1.04) mg/dL Est GFR (MDRD) Af Amer (>60 ml/min/1.73 sqM) Est GFR (MDRD) Non-Af (>60 ml/min/1.73 sqM) Glucose (74-99) mg/dL Calcium (8.4-10.2) mg/dL Magnesium (1.6-2.3) mg/dL Total Bilirubin (0.2-1.3) mg/dL AST (14-36) U/L ALT (9-52) U/L Alkaline Phosphatase (38-126) U/L Total Creatine Kinase 108 (30-135) U/L CK-MB (CK-2) 1.5 (0.0-2.4) ng/mL CK-MB (CK-2) Rel Index 1.4 Troponin I <0.012 (0.000-0.034) ng/mL NT-Pro-B Natriuret Pep 109 pg/mL Total Protein (6.3-8.2) g/dL Albumin (3.5-5.0) g/dL Disposition Clinical Impression: Atypical chest pain Disposition: HOME SELF-CARE Condition: Good Instructions: Chest Pain (ED) Prescriptions: HYDROcodone/APAP 7.5-325MG [[place] 7.5-325] 1 tab PO Q6HR PRN #12 tab PRN Reason: Pain Referrals: Karin Sal MD [Primary Care Provider] - 1-2 days Time of Disposition: 02:30
[2016-10-01 02:52] VITALS: BP 144/65; PULSE 64
== END 2016-10-01 02:51 | disposition home or self-care (01) ==
LOC: EC 23:57
DX: R07.9 Chest pain, unspecified (principal); R06.02 Shortness of breath; R05 Cough; J44.9 Chronic obstructive pulmonary disease, unspecified; F17.200 Nicotine dependence, unspecified, uncomplicated; Z86.718 Personal history of other venous thrombosis and embolism; Z79.01 Long term (current) use of anticoagulants; Z79.51 Long term (current) use of inhaled steroids; Z79.899 Other long term (current) drug therapy
CPT/HCPCS: 36415; 71020; 80053; 82550; 82553; 83735; 83880; 84484; 85025; 85610; 85730; 93005; 99285

== ENCOUNTER → 2017-05-16 | Outpatient (CLI) | payer MEDICARE, OTHER ==
--- NOTE | 2017-05-19 10:17 | US ---
EXAMINATION TYPE: US venous doppler duplex LE RT DATE OF EXAM: 05/16/2017 4:25 PM COMPARISON: US CLINICAL HISTORY: Rt Lower Ext, Chronic would and leg pain/swelling. SIDE PERFORMED: Right TECHNIQUE: The lower extremity deep venous system is examined utilizing real time linear array sonography with graded compression, doppler sonography and color-flow sonography. VESSELS IMAGED: External Iliac Vein (EIV) Common Femoral Vein Deep Femoral Vein Greater Saphenous Vein * Femoral Vein Popliteal Vein Small Saphenous Vein * Proximal Calf Veins (* superficial vessels) Technically difficult study in patients groin, due to slow venous return and calcified arterial vessels. Right Leg: Negative for DVT within the limitations of the exam Dr Karin Sal called with preliminary results. Grayscale, color doppler, spectral doppler imaging performed of the deep veins of the lower extremities. IMPRESSION: The right groin shows extensive shadowing, difficult to exclude abnormality at this level. No evident deep venous thrombosis in the remainder of the deep veins of the lower extremity within the superficial femoral, popliteal veins. MTDD
== END | disposition home or self-care (01) ==
LOC: RADUSMAIN 15:43
PROVIDERS: ATTEND Family Medicine
DX: M79.604 Pain in right leg (principal); Z86.718 Personal history of other venous thrombosis and embolism

== ENCOUNTER 2017-05-18 19:20 | Inpatient (IN) | payer MEDICARE, OTHER ==
[2017-05-18] MEDS ORDERED: ACETAMINOPHEN TAB 500 MG TAB PO STA (20:10)
--- NOTE | 2017-05-18 20:18 | ED ---
Fever HPI - General Chief Complaint: Fever Stated Complaint: body aches Time Seen by Provider: 05/18/17 19:55 Source: patient Mode of arrival: ambulatory Limitations: no limitations - History of Present Illness Initial Comments: 66-year-old female patient presents to the emergency department today for chief complaint of generalized body aches. Patient states that she has been feeling this way since this morning. Patient states that she has had some nasal congestion and a minor cough but denies any sore throat or ear pain. She denies any shortness of breath or sputum production. Patient is being treated for chronic wound on her right leg by the wound center. Patient denies any worsening of the wound to the leg. Patient states she is also having some left flank pain and pressure in her suprapubic region when she urinates. She denies any hematuria, dysuria, urinary frequency, or urinary urgency. She denies any abdominal pain or diarrhea. Patient denies any recent rash, chest pain, numbness , tingling, dizziness, weakness, hematuria, dysuria, urinary urgency, urinary frequency, headache, visual changes, or any other complaints. - Related Data Home Medications Medication Instructions Recorded Confirmed Albuterol Sulfate [Proair Hfa] 2 puff INHALATION RT-Q4H PRN 06/27/15 05/19/17 Rivaroxaban [Xarelto] 20 mg PO DAILY 08/18/15 05/19/17 HYDROcodone/APAP 10-325MG [[place] 1 tab PO TID PRN 01/31/17 05/19/17 10-325] Previous Rx's Medication Instructions Recorded Pantoprazole Sodium [Protonix] 40 mg PO DAILY #30 tablet. 04/26/16 Aspirin 81 mg PO DAILY #30 chew 02/04/17 Atorvastatin [Lipitor] 80 mg PO DAILY #303 tab 02/04/17 Metoprolol Tartrate [Lopressor] 25 mg PO BID #60 tab 02/04/17 Nitroglycerin Sl Tabs [Nitrostat] 0.4 mg SUBLINGUAL Q5M PRN #10 tab 02/04/17 Allergies Allergy/AdvReac Type Severity Reaction Status Date / Time No Known Allergies Allergy Verified 05/18/17 20:10 Review of Systems ROS Statement: Those systems with pertinent positive or pertinent negative responses have been documented in the HPI. ROS Other: All systems not noted in ROS Statement are negative. Past Medical History Past Medical History: Chest Pain / Angina, Deep Vein Thrombosis (DVT), GERD/ Reflux, Hypertension, Liver Disease, Osteoarthritis (OA) Additional Past Medical History / Comment(s): DVT R leg 2006, hepatitis C, past IV heroin use, colonic polyp-benign, athritis multiple joints, FRANCIS, erythema nodosum History of Any Multi-Drug Resistant Organisms: None Reported Past Surgical History: Appendectomy, Bowel Resection, Breast Surgery, Cholecystectomy, Hysterectomy, Orthopedic Surgery, Tubal Ligation Additional Past Surgical History / Comment(s): Sigmoid resection due to diverticular dx, partial colonoscopy, LEFT KNEE ARTHROSCOPY, LEFT BREAST BX-NEG. Past Anesthesia/Blood Transfusion Reactions: No Reported Reaction Past Psychological History: Anxiety Smoking Status: Current every day smoker Past Alcohol Use History: Daily Past Drug Use History: None Reported - Past Family History Mother Family Medical History: Cancer Additional Family Medical History / Comment(s): Mother at age 77 with history of CANCER OF LARYNX. CABG. FROM AN AORTIC ANEURYSM. Sister(s) Family Medical History: Cancer, Deep Vein Thrombosis (DVT) Additional Family Medical History / Comment(s): Uterine cancer. Patient has 2 sisters and one . She states her living sister is not doing well but does not know her medical problems. Father History Unknown: Yes Family Medical History: No Reported History, Unable to Obtain Additional Family Medical History / Comment(s): Dad but that she does not know his medical problems. Brother(s) Additional Family Medical History / Comment(s): She has one brother with COPD. Daughter(s) Additional Family Medical History / Comment(s): Patient has 4 children. One daughter from a motor vehicle accident. One daughter has had a stroke and myocardial infarction. General Exam Limitations: no limitations General appearance: alert, in no apparent distress, other (This is a well- developed, well-nourished adult female patient in no acute distress. Vital signs upon presentation are temperature 102.7F, pulse 98, respirations 22, blood pressure 173/89, pulse ox 99% on room air.) Eye exam: Present: normal appearance, PERRL, EOMI. Absent: scleral icterus, conjunctival injection, periorbital swelling ENT exam: Present: normal exam, normal oropharynx, mucous membranes moist Respiratory exam: Present: normal lung sounds bilaterally. Absent: respiratory distress, wheezes, rales, rhonchi, stridor Cardiovascular Exam: Present: regular rate, normal rhythm, normal heart sounds. Absent: systolic murmur, diastolic murmur, rubs, gallop, clicks GI/Abdominal exam: Present: soft, normal bowel sounds. Absent: distended, tenderness, guarding, rebound, rigid Extremities exam: Present: full ROM, normal capillary refill, other (There is an ulcer to the right lower leg leg over the mid tibia. No surrounding erythema or swelling.). Absent: normal inspection, tenderness, pedal edema, joint swelling, calf tenderness Back exam: Present: normal inspection, CVA tenderness (L). Absent: CVA tenderness (R) Neurological exam: Present: alert, oriented X3, CN II-XII intact Psychiatric exam: Present: normal affect, normal mood Skin exam: Present: warm, dry, intact, normal color. Absent: rash Course Vital Signs 05/18/17 05/18/17 05/18/17 19:35 21:47 23:17 Temperature 102.7 F H 100.4 F H 99.4 F Pulse Rate 98 108 H 85 Respiratory 22 18 18 Rate Blood Pressure 173/89 149/94 155/74 O2 Sat by Pulse 99 97 99 Oximetry Medical Decision Making - Medical Decision Making 66-year-old female patient presents to the emergency department today for complaints of body aches and fever. Physical examination did reveal some left CVA tenderness. Abdomen soft and nontender. Labs reviewed, urinalysis showed a cloudy appearance with trace protein, moderate blood, positive nitrite, large leukocyte esterase, 11 red blood cells, greater than 182 white blood cells, many white blood cell clumps, many bacteria, and rare mucous. Patient was negative for influenza. Symptoms are consistent with acute pyelonphritis. Blood cultures were obtained. I did discuss findings with the patient and discussed inpatient versus outpatient treatment. Patient states she is not feeling any better and would prefer to remain inpatient. We did give her 2 grams of Rocephin IV push. She will be given 1 g of Rocephin daily thereafter. Patient will be admitted to Dr. Melendez. - Lab Data Result diagrams: 05/18/17 21:15 05/18/17 21:15 Lab Results 05/18/17 05/18/17 05/18/17 Range/Units 19:40 21:15 21:15 WBC 9.4 (3.8-10.6) k/uL RBC 4.38 (3.80-5.40) m/uL Hgb 14.0 (11.4-16.0) gm/dL Hct 42.8 (34.0-46.0) % MCV 97.8 (80.0-100.0) fL MCH 31.9 (25.0-35.0) pg MCHC 32.7 (31.0-37.0) g/dL RDW 13.1 (11.5-15.5) % Plt Count 207 (150-450) k/uL Neutrophils % 72 % Lymphocytes % 19 % Monocytes % 7 % Eosinophils % 1 % Basophils % 1 % Neutrophils # 6.7 (1.3-7.7) k/uL Lymphocytes # 1.8 (1.0-4.8) k/uL Monocytes # 0.6 (0-1.0) k/uL Eosinophils # 0.1 (0-0.7) k/uL Basophils # 0.0 (0-0.2) k/uL PT (9.0-12.0) sec INR (<1.2) APTT (22.0-30.0) sec Sodium 138 (137-145) mmol/L Potassium 4.5 (3.5-5.1) mmol/L Chloride 106 (98-107) mmol/L Carbon Dioxide 19 L (22-30) mmol/L Anion Gap 13 mmol/L BUN 17 (7-17) mg/dL Creatinine 0.80 (0.52-1.04) mg/dL Est GFR (CKD-EPI)AfAm >90 (>60 ml/min/1.73 sqM) Est GFR (CKD-EPI)NonAf 78 (>60 ml/min/1.73 sqM) Glucose 113 H (74-99) mg/dL Plasma Lactic Acid Morgan (0.7-2.0) mmol/L Calcium 9.4 (8.4-10.2) mg/dL Total Bilirubin 1.2 (0.2-1.3) mg/dL AST 64 H (14-36) U/L ALT 49 (9-52) U/L Alkaline Phosphatase 120 (38-126) U/L Total Protein 7.6 (6.3-8.2) g/dL Albumin 4.0 (3.5-5.0) g/dL Urine Color Urine Appearance (Clear) Urine pH (5.0-8.0) Ur Specific [place] (1.001-1.035) Urine Protein (Negative) Urine Glucose (UA) (Negative) Urine Ketones (Negative) Urine Blood (Negative) Urine Nitrite (Negative) Urine Bilirubin (Negative) Urine Urobilinogen (<2.0) mg/dL Ur Leukocyte Esterase (Negative) Urine RBC (0-5) /hpf Urine WBC (0-5) /hpf Urine WBC Clumps (None) /hpf Ur Squamous Epith Cells (0-4) /hpf Urine Bacteria (None) /hpf Urine Mucus (None) /hpf Influenza Type A RNA Not Detected (Not Detectd) Influenza Type B (PCR) Not Detected (Not Detectd) 05/18/17 05/18/17 05/18/17 Range/Units 21:15 21:15 21:58 WBC (3.8-10.6) k/uL RBC (3.80-5.40) m/uL Hgb (11.4-16.0) gm/dL Hct (34.0-46.0) % MCV (80.0-100.0) fL MCH (25.0-35.0) pg MCHC (31.0-37.0) g/dL RDW (11.5-15.5) % Plt Count (150-450) k/uL Neutrophils % % Lymphocytes % % Monocytes % % Eosinophils % % Basophils % % Neutrophils # (1.3-7.7) k/uL Lymphocytes # (1.0-4.8) k/uL Monocytes # (0-1.0) k/uL Eosinophils # (0-0.7) k/uL Basophils # (0-0.2) k/uL PT 11.0 (9.0-12.0) sec INR 1.1 (<1.2) APTT 20.7 L (22.0-30.0) sec Sodium (137-145) mmol/L Potassium (3.5-5.1) mmol/L Chloride (98-107) mmol/L Carbon Dioxide (22-30) mmol/L Anion Gap mmol/L BUN (7-17) mg/dL Creatinine (0.52-1.04) mg/dL Est GFR (CKD-EPI)AfAm (>60 ml/min/1.73 sqM) Est GFR (CKD-EPI)NonAf (>60 ml/min/1.73 sqM) Glucose (74-99) mg/dL Plasma Lactic Acid Morgan 1.6 (0.7-2.0) mmol/L Calcium (8.4-10.2) mg/dL Total Bilirubin (0.2-1.3) mg/dL AST (14-36) U/L ALT (9-52) U/L Alkaline Phosphatase (38-126) U/L Total Protein (6.3-8.2) g/dL Albumin (3.5-5.0) g/dL Urine Color Yellow Urine Appearance Cloudy H (Clear) Urine pH 5.5 (5.0-8.0) Ur Specific [place] 1.013 (1.001-1.035) Urine Protein Trace H (Negative) Urine Glucose (UA) Negative (Negative) Urine Ketones Negative (Negative) Urine Blood Moderate H (Negative) Urine Nitrite Positive H (Negative) Urine Bilirubin Negative (Negative) Urine Urobilinogen <2.0 (<2.0) mg/dL Ur Leukocyte Esterase Large H (Negative) Urine RBC 11 H (0-5) /hpf Urine WBC >182 H (0-5) /hpf Urine WBC Clumps Many H (None) /hpf Ur Squamous Epith Cells 1 (0-4) /hpf Urine Bacteria Many H (None) /hpf Urine Mucus Rare H (None) /hpf Influenza Type A RNA (Not Detectd) Influenza Type B (PCR) (Not Detectd) - EKG Data -: EKG Interpreted by Mi EKG Comments: EKG obtained at 2026 shows normal sinus rhythm with a ventricular rate of 90, CA interval 166, QRS duration 70, QT 368, QTC 450. - Radiology Data Radiology results: report reviewed, image reviewed Two-view x-ray of the chest was obtained. Report was reviewed in its entirety. Impression by Dr. Corrales shows minimal left basilar subsegmental atelectasis with no other acute cardiopulmonary process. Disposition Clinical Impression: Acute pyelonephritis Disposition: ADMITTED IP TO THIS [facility] Condition: Serious Decision to Admit Reason: Admit from EC Decision Date: 05/18/17 Decision Time: 23:08
[2017-05-18] MEDS: SODIUM CHLORIDE 0.9% 500 ML IV SCH ×2 (20:56→20:57)
--- NOTE | 2017-05-18 21:43 | XR ---
EXAMINATION TYPE: XR chest 2V DATE OF EXAM: 05/18/2017 COMPARISON: 01/31/2017 HISTORY: Fever and bodyaches TECHNIQUE: Frontal and lateral views of the chest are obtained. FINDINGS: There is no focal air space opacity, pleural effusion, or pneumothorax seen. Platelike lef t basilar subsegmental atelectasis is present. The cardiac silhouette size is within normal limits. The osseous structures are intact. Cholecystectomy clips reside within the right upper quadrant. M ild multilevel degenerative changes of the thoracic spine are seen. IMPRESSION: Minimal left basilar subsegmental atelectasis with no other acute cardiopulmonary proces s.
[2017-05-18 22:12] LABS: Basophils % (A) 1 %; Eosinophils # (A) 0.1 k/uL (0-0.7); Eosinophils % (A) 1 %; HCT 42.8 % (34.0-46.0); Lymphocytes # (A) 1.8 k/uL (1.0-4.8); Lymphocytes % (A) 19 %; MCH 31.9 pg (25.0-35.0); MCHC 32.7 g/dL (31.0-37.0); MCV 97.8 fL (80.0-100.0); Mean Platelet Volume 8.3; Monocytes # (A) 0.6 k/uL (0-1.0); Monocytes % (A) 7 %; Neutrophils # (A) 6.7 k/uL (1.3-7.7); Neutrophils % (A) 72 %; Platelet Count 207 k/uL (150-450); RBC 4.38 m/uL (3.80-5.40); RDW 13.1 % (11.5-15.5); WBC 9.4 k/uL (3.8-10.6)
[2017-05-18 22:15] LABS: ALT 49 U/L (9-52); AST 64 U/L (14-36); Alkaline Phosphatase 120 U/L (38-126); Anion Gap 13 mmol/L; Blood Urea Nitrogen 17 mg/dL (7-17); Calcium 9.4 mg/dL (8.4-10.2); Carbon Dioxide 19 mmol/L (22-30); Chloride 106 mmol/L (98-107); Glucose 113 mg/dL (74-99); Potassium 4.5 mmol/L (3.5-5.1); Sodium 138 mmol/L (137-145); Total Bilirubin 1.2 mg/dL (0.2-1.3); Total Protein 7.6 g/dL (6.3-8.2)
[2017-05-18 22:20] LABS: Appearance,Urine Cloudy (Clear); Bacteria,Urine Many /hpf; Bilirubin,Urine Negative (Negative); Blood,Urine Moderate (Negative); Color,Urine Yellow; Glucose,Urine (UA) Negative (Negative); Ketones,Urine Negative (Negative); Leukocyte Esterase,Urine Large (Negative); Mucus,Urine Rare /hpf; Nitrite,Urine Positive (Negative); PH, Urine 5.5 (5.0-8.0); Protein,Urine Trace (Negative); RBC,Urine 11 /hpf (0-5); Specific Gravity,Urine 1.013 (1.001-1.035); Squamous Epithelial Cell,Urine 1 /hpf (0-4); Urobilinogen,Urine <2.0 mg/dL (<2.0); WBC,Urine >182 /hpf (0-5)
[2017-05-18 22:21] LABS: INR 1.1 (<1.2)
[2017-05-18 22:28] LABS: Partial Thromboplastin Time 20.7 sec (22.0-30.0)
[2017-05-18] MEDS ORDERED: cefTRIAXone IN SWFI 2,000 MG/20 ML SYRINGE IVP STA (23:06)
[2017-05-18] MEDS ORDERED: IBUPROFEN 400 MG TAB PO PRN (23:06)
[2017-05-18] MEDS ORDERED: NALOXONE 0.4 MG/ML 1 ML VIAL IV PRN (23:06)
[2017-05-18] MEDS ORDERED: ACETAMINOPHEN TAB 325 MG TAB PO PRN (23:06)
[2017-05-18] MEDS ORDERED: ONDANSETRON 4 MG/2 ML VIAL IVP PRN (23:06)
[2017-05-18] MEDS: SODIUM CHLORIDE 0.9% 1,000 ML IV SCH (23:21)
[2017-05-19] MEDS ORDERED: NITROGLYCERIN SL TABS 0.4 MG TAB SUBLINGUAL PRN (00:57)
[2017-05-19] MEDS: HYDROcodone/APAP 10-325MG 1 EACH TAB PO PRN ×4 (03:08→21:33)
[2017-05-19] MEDS: ASPIRIN 81 MG PO SCH (09:31)
[2017-05-19] MEDS: PANTOPRAZOLE 40 MG TABLET PO SCH (09:31)
[2017-05-19] MEDS: ATORVASTATIN 80 MG TAB PO SCH (09:32)
[2017-05-19] MEDS: METOPROLOL TARTRATE 25 MG TAB PO SCH ×2 (09:33→21:18)
[2017-05-19] MEDS: RIVAROXABAN 20 MG TAB PO SCH (09:34)
[2017-05-19 09:36] LABS: Anion Gap 8 mmol/L; Blood Urea Nitrogen 16 mg/dL (7-17); Calcium 8.9 mg/dL (8.4-10.2); Carbon Dioxide 22 mmol/L (22-30); Chloride 109 mmol/L (98-107); Glucose 119 mg/dL (74-99); Potassium 3.8 mmol/L (3.5-5.1); Sodium 139 mmol/L (137-145)
[2017-05-19] MEDS ORDERED: Potassium Replacement Protocol 1 EACH MISC MISCELLANE PRN (09:44)
[2017-05-19] MEDS ORDERED: Magnesium Replacement Protocol 1 EACH MISC MISCELLANE PRN (09:44)
[2017-05-19 11:17] LABS: Basophils # (A) 0.1 k/uL (0-0.2); Basophils % (A) 1 %; Eosinophils # (A) 0.3 k/uL (0-0.7); Eosinophils % (A) 3 %; HGB 13.6 gm/dL (11.4-16.0); Lymphocytes # (A) 2.2 k/uL (1.0-4.8); Lymphocytes % (A) 23 %; MCH 32.3 pg (25.0-35.0); MCHC 34.1 g/dL (31.0-37.0); MCV 94.6 fL (80.0-100.0); Mean Platelet Volume 7.7; Monocytes # (A) 0.8 k/uL (0-1.0); Monocytes % (A) 8 %; Neutrophils % (A) 63 %; Platelet Count 184 k/uL (150-450); RBC 4.22 m/uL (3.80-5.40); RDW 13.2 % (11.5-15.5); WBC 9.6 k/uL (3.8-10.6)
[2017-05-19] MEDS: SODIUM CHLORIDE 0.9% 1,000 ML IV SCH (13:10)
[2017-05-19] MEDS ORDERED: DOCUSATE 100 MG CAP PO SCH (14:30)
[2017-05-19] MEDS: ALBUTEROL NEBULIZED 2.5 MG/3 ML INHALATION PRN (15:37)
[2017-05-19] MEDS ORDERED: POTASSIUM CHLORIDE ER 20 MEQ TAB.ER PO STA (16:39)
[2017-05-19] MEDS: DOCUSATE 100 MG CAP PO SCH (17:12)
[2017-05-19] MEDS: MAGNESIUM SULFATE-D5W PMX 1 GM in DEXTROSE/WATER 1 100ML.BAG IVPB SCH ×2 (17:13→18:20)
[2017-05-19] MEDS ORDERED: ALPRAZolam 0.25 MG TAB PO PRN (17:35)
--- NOTE | 2017-05-19 18:42 | HP ---
HISTORY AND PHYSICAL CHIEF COMPLAINTS: Abdominal pain and fever. HISTORY OF PRESENT ILLNESS: This 66-year-old woman with a past medical history of multiple medical problems, including CAD, history of DVT, GERD, hypertension, hyperlipidemia, is being followed by Dr. nikki Farah and Dr. Karin Sal in the outpatient setting. She was admitted with abdominal and back pain. The patient had some fever, chills, generalized body aches. Patient was also complaining of left loin pain and patient had some pressure in the suprapubic area also. The patient came to [facility] and was evaluated. A chest x-ray was done. The UA showed significant evidence of UTI; pyelonephritis was suspected. The patient was admitted for further evaluation and treatment. There is no history of any headache, loss of consciousness, seizures at this time. PAST MEDICAL HISTORY: 1. History of CAD. 2. History of DVT. 3. GERD. 4. Hypertension. 5. Hyperlipidemia. 6. Liver disease. 7. DJD. 8. History of anxiety. HOME MEDICATIONS: 1. Buspirone 10 mg p.o. b.i.d. 2. Xarelto 20 mg p.o. daily. 3. Protonix 40 mg daily. 4. Nitrostat 0.4 sublingually p.r.n. 5. Lopressor 25 mg p.o. b.i.d. 6. Hydrocodone 10 mg t.i.d. p.r.n. 7. Lipitor 80 mg p.o. daily. 8. Aspirin 81 mg daily. 9. Albuterol 2 puffs q.4 p.r.n. ALLERGIES: NONE. FAMILY HISTORY: History of cancer in the family. SOCIAL HISTORY: History of smoking. Occasional alcohol intake. REVIEW OF SYSTEMS: ENT: No diminished hearing. No diminished vision. CARDIOVASCULAR SYSTEM: No angina, palpitations. RESPIRATORY SYSTEM: As mentioned earlier. GI: No nausea, vomiting. : No dysuria or retention. NERVOUS SYSTEM: No numbness, weakness. ALLERGY/IMMUNOLOGY: No asthma, hayfever. MUSCULOSKELETAL: As mentioned earlier. HEMATOLOGY/ONCOLOGY: No history of anemia. ENDOCRINE: No history of diabetes, hypothyroidism. CONSTITUTIONAL: As mentioned earlier. DERMATOLOGY: Negative. RHEUMATOLOGY: Negative. PSYCHIATRY: As mentioned earlier. PHYSICAL EXAMINATION: Patient is alert, oriented x3. Pulse is 69, blood pressure 141/80, respiration 18, temperature 98.6, pulse ox 100% on room air. HEENT: Conjunctivae normal. Oral mucosa moist. NECK: No jugular venous distention. No carotid bruit. No lymph node enlargement. CARDIOVASCULAR SYSTEM: S1, S2 muffled. No S3. No S4. RESPIRATORY SYSTEM: Breath sounds diminished at the bases. A few scattered rhonchi. No crackles. ABDOMEN: Soft with minimal tenderness in the left loin area present. No guarding. No rigidity. No mass palpable. LEGS: No edema. No swelling. Right lower leg wound present. NERVOUS SYSTEM: No focal deficit. Moves all 4 limbs. SKIN: No ulcer, rash, bleeding. JOINTS: No active deforming arthropathy. LYMPHATICS: No lymph node palpable in neck, axillae or groin. LABS: CBC within normal limits. Sodium 139, potassium 3.8. UA noted. ASSESSMENT: 1. Left loin pain with possible acute left pyelonephritis. 2. Coronary artery disease. 3. History of deep vein thrombosis. 4. History of gastroesophageal reflux disease. 5. Hypertension. 6. Hyperlipidemia. 7. History of chronic liver disease. 8. History of degenerative joint disease. 9. History of chronic right lower leg wound. 10.History of appendectomy. 11.History of cholecystectomy. 12.History of anxiety. RECOMMENDATIONS AND DISCUSSION: In this 66-year-old woman who presented with multiple complex medical issues., we will we will monitor the patient closely, continue the current medications, continue with symptomatic treatment. Rocephin has been initiated. We will follow the cultures. Also recommend infectious disease evaluation with Dr. Willson, since the patient has been followed in the [facility] [place]. Otherwise continue the rest of medications. DVT prophylaxis. Will follow the patient closely. Discussed with the patient, who understands and agrees Further recommendations to follow. A copy of this dictation is being forwarded to Dr. Karin Sal and Alexa Farah. MMMILTONL / ANDRZEJN: [id number] / [place]
[2017-05-19] MEDS ORDERED: TEMAZEPAM 15 MG CAP PO PRN (21:00)
[2017-05-19] MEDS: busPIRone HCl 10 MG TAB PO SCH ×2 (21:18→21:26)
[2017-05-19] MEDS: cefTRIAXone IN SWFI 1,000 MG/10 ML SYRINGE IVP SCH (23:28)
[2017-05-20] MEDS: HYDROcodone/APAP 10-325MG 1 EACH TAB PO PRN ×3 (05:19→22:07)
[2017-05-20] MEDS: SODIUM CHLORIDE 0.9% 1,000 ML IV SCH ×2 (05:21→18:15)
[2017-05-20] MEDS: PANTOPRAZOLE 40 MG TABLET PO SCH (07:56)
[2017-05-20 08:20] LABS: Potassium 4.2 mmol/L (3.5-5.1)
[2017-05-20] MEDS: ATORVASTATIN 80 MG TAB PO SCH (09:08)
[2017-05-20] MEDS: ASPIRIN 81 MG PO SCH (09:08)
[2017-05-20] MEDS: DOCUSATE 100 MG CAP PO SCH ×2 (09:10→20:54)
[2017-05-20] MEDS: METOPROLOL TARTRATE 25 MG TAB PO SCH ×2 (09:11→20:54)
[2017-05-20] MEDS: RIVAROXABAN 20 MG TAB PO SCH (09:11)
[2017-05-20] MEDS: NICOTINE 14MG/24HR PATCH TRANSDERM SCH (09:11)
[2017-05-20] MEDS: busPIRone HCl 10 MG TAB PO SCH ×2 (09:14→20:51)
--- NOTE | 2017-05-20 14:12 | US ---
EXAMINATION TYPE: US kidneys/renal and bladder DATE OF EXAM: 05/20/2017 COMPARISON: NONE CLINICAL HISTORY: left pyelonephritis; left flank pain EXAM MEASUREMENTS: Right Kidney: 10.0 x 5.0 x 4.0cm Left Kidney: 10.7 x 6.4 x 5.3 cm Post Void Residual Volume: NA as patient voided prior to coming down to US Right Kidney: No hydronephrosis or masses seen Left Kidney: No hydronephrosis or masses seen Bladder: minimally distended Bilateral Jets seen: no IMPRESSION: 1. Normal renal ultrasound. 2. No suspicious changes left kidney by ultrasound.
[2017-05-20] MEDS: ALBUTEROL NEBULIZED 2.5 MG/3 ML INHALATION PRN ×2 (16:48→21:50)
--- NOTE | 2017-05-20 16:55 | CONS ---
CONSULTATION DATE OF SERVICE: 05/20/2017. REASON FOR CONSULTATION: 1. Pyelonephritis. 2. Left leg wound. HISTORY OF PRESENT ILLNESS: The patient is a 66-year-old female who follows with us at the [facility] for chronic a nonhealing wound to the left leg. She presented to the ER at [facility] on 05/25/2017 with chief complaints of generalized body aches and not feeling well as the symptoms started the morning she presented to the hospital. The patient did have some change in condition with minor cough, but no other URI symptoms. The patient denies having any chest pain. No abdominal pain. No nausea, vomiting, or any diarrhea. Denies significant urinary symptoms either. With these symptoms, the patient was evaluated by the ER physician. The patient did have a fever of 102.7 degrees Fahrenheit down in the ER and the patient was noticed to be tachycardic with a heart rate of 108. Blood pressure was stable though. She did have a normal white count. Influenza serology was negative. Her urine was cloudy with more nitrite positive with large leukocyte esterase with more than 1-2 WBC. Blood cultures obtained. Urine did not show any gram-negative bacilli. The patient was started on Rocephin. Infectious Disease was consulted for further recommendation regarding antibiotic therapy. REVIEW OF SYSTEMS: CONSTITUTIONAL: Positive for weakness along with the fever and chills. EYES: No complaint. ENT: As per HPI. RESPIRATORY: As per HPI. CARDIOVASCULAR: No complaint. GENITOURINARY: As per HPI. GASTROINTESTINAL: No complaint. MUSCULOSKELETAL: No complaint. INTEGUMENTARY: No complaint. PSYCHOLOGICAL: No complaint. ENDOCRINE: No complaint. NEUROLOGIC: No complaint. PAST MEDICAL HISTORY: Significant for DVT, gastroesophageal reflux disease, hypertension, liver disease, osteoarthritis, chronic hepatitis C. PAST SURGICAL HISTORY: Appendectomy, bowel resection, breast surgery, cholecystectomy, hysterectomy, orthopedic surgery, tubal ligation. SOCIAL HISTORY: Current everyday smoker. Daily drinks. No drug use. FAMILY HISTORY: Mother with history of cancer of the larynx and aortic aneurysm. Sister with history of DVT. ALLERGIES: No known drug allergies. MEDICATIONS: The patient is currently on Tylenol, [place], Xanax, aspirin, Lipitor, BuSpar, Rocephin 1 g daily, Colace, Lopressor, Narcan, nicotine patch, Nitrostat, Zofran, Protonix, Xarelto, Restoril. EXAMINATION: Blood pressure is 155/66, pulse of 64, temperature of 98. She is 97% on room air. General description is a middle aged female up in the bed in no distress. No tachypnea or accessory muscle of respiration use. HEENT EXAMINATION: No pallor or scleral icterus. Oral mucosa is moist. No pharyngeal erythema or thrush. NECK: Trachea central. No thyromegaly. LUNGS: Unlabored breathing. Clear to auscultation. No wheeze or crackle. HEART: S1, S2. Regular rate and rhythm. ABDOMEN: Soft, no tenderness. No organomegaly. EXTREMITIES: No edema of feet. Left leg wound with no surrounding swelling or redness or any drainage. NEUROLOGICAL: Patient is awake, alert, oriented x3. Mood and affect normal. LABS: Hemoglobin 13.2, white of 9.6 with a BUN of 16, creatinine 0.79. Urine was positive. Influenza serology was negative. Urine showing a gram-negative. DIAGNOSTIC IMPRESSION AND PLAN: 1. Patient admitted to the hospital with sepsis in a patient who did have a fever, tachycardia meeting criteria for SIRS. Source is likely left-sided pyelonephritis in patient complaining of pain in the left flank area prior to symptoms started and likely from enteric gram-negative pathogen. The patient has not been on antibiotic in the recent past. 2. Left leg wound with no evidence of any cellulitis. PLAN: 1. Rocephin 1 g IV daily while waiting for the culture to finalize. 2. Dry protective dressing to the left leg wound. 3. Depending on the clinical response as well as culture, will adjust the medication further if needed. Thank you for this consultation. Will follow this patient with you. MMODL / IJN: [id number] /
[2017-05-20] MEDS: cefTRIAXone IN SWFI 1,000 MG/10 ML SYRINGE IVP SCH (20:54)
[2017-05-21] MEDS: SODIUM CHLORIDE 0.9% 1,000 ML IV SCH (09:55)
[2017-05-21] MEDS: PANTOPRAZOLE 40 MG TABLET PO SCH (09:56)
[2017-05-21] MEDS: ATORVASTATIN 80 MG TAB PO SCH (09:57)
[2017-05-21] MEDS: busPIRone HCl 10 MG TAB PO SCH (09:57)
[2017-05-21] MEDS: NICOTINE 14MG/24HR PATCH TRANSDERM SCH (09:57)
[2017-05-21] MEDS: DOCUSATE 100 MG CAP PO SCH (09:57)
[2017-05-21] MEDS: METOPROLOL TARTRATE 25 MG TAB PO SCH (09:58)
[2017-05-21] MEDS: ASPIRIN 81 MG PO SCH (10:00)
[2017-05-21] MEDS: RIVAROXABAN 20 MG TAB PO SCH (10:29)
[2017-05-21 12:31] VITALS: PULSE 62
--- NOTE | 2017-05-21 13:21 | P.PN ---
Subjective Progress Note Date: 05/20/17 Principal diagnosis: Left flank pain. Acute pyelonephritis Patient is a 66 old female with a known history of multiple medical problems including CAD, DVT, GERD, hypertension, hyperlipidemia who follows with Dr. Karin Sal as outpatient setting admitted to hospital for abdominal pain and left flank pain. Patient is being treated for acute pyelonephritis and urine cultures showing gram-negative bacilli. 05/20/2017. Abdominal pain this is better today. Patient is being continued on IV hydration and antibiotics in the form of ceftriaxone. ID is following. No commerce of fever or chills. No nausea vomiting or diarrhea Ultrasound of the abdomen/renal was done. No chest pain no shortness of breath. All other review of systems negative except the above Current medications reviewed Objective - Vital Signs Vital signs: Vital Signs Temp 98.0 F 05/20/17 11:44 Pulse 68 05/20/17 17:01 Resp 19 05/20/17 11:44 BP 155/66 05/20/17 11:44 Pulse Ox 97 05/20/17 11:44 Intake & Output 05/20/17 05/20/17 05/21/17 06:59 18:59 06:59 Intake Total 1100 240 Output Total 200 Balance 900 240 Weight 81.193 kg Intake: Oral 1100 240 Output: Urine 200 Other: Voiding Method Toilet # Voids 3 - Exam PHYSICAL EXAMINATION: Patient is lying in the bed comfortably, no acute distress, awake alert and oriented.. HEENT: Normocephalic. Neck is supple. Pupils reactive. Nostrils clear. Oral cavity is moist. Ears reveal no drainage. Neck reveals no JVD, carotid bruits, or thyromegaly. CHEST EXAMINATION: Trachea is central. Symmetrical expansion. Lung alford clear to auscultation and percussion. CARDIAC: Normal S1, S2 with no gallops. No murmurs ABDOMEN: Soft. Bowel sounds normal. No organomegaly. No abdominal bruits. Extremities: reveal no edema. No clubbing or cyanosis Neurologically awake, alert, oriented x3 with well-coordinated movements. No focal deficits noted Skin: No rash or skin lesions. Psychiatric: Coperative. Nonsuicidal Musculoskeletal: No joint swelling or deformity. Normal range of motion. - Labs CBC & Chem 7: 05/19/17 11:05 03/13/18 06:54 Labs: Microbiology - Last 24 Hours (Table) 05/18/17 21:58 Urine Culture - Preliminary Urine,Clean Catch Gram Neg Bacilli 05/18/17 20:54 Blood Culture - Preliminary Blood No Growth after 24 hours Assessment and Plan Assessment: Left flank pain due to acute pyelonephritis Elevated AST likely due to EtOH use an daily basis History of DVT GERD Hypertension Hyperlipidemia Chronic liver disease Degenerative joint disease Chronic right lower leg wound. History of appendectomy and cholecystectomy next and anxiety Plan: Patient will be continued on antibiotics in the form of ceftriaxone and also on anticoagulation for DVT. Continue the pain management and follow closely current with the wound care. ID is following. Further conditions based on the clinical course. Time with Patient: Greater than 30
[2017-05-21 16:46] VITALS: BP 147/74; RESP 17; TEMP 98.1
[2017-05-21] MEDS: HYDROcodone/APAP 10-325MG 1 EACH TAB PO PRN (17:08)
--- NOTE | 2017-05-21 21:11 | PN ---
PROGRESS NOTE DATE OF SERVICE: 05/21/2017 REASON FOR FOLLOWUP: E. coli left-sided pyelonephritis. INTERVAL HISTORY: The patient was seen on rounds earlier this afternoon. The patient has been afebrile. She has been breathing comfortably. No further nausea, vomiting or . Denies chest pain, shortness of breath or cough no abdominal pain or any diarrhea. EXAMINATION: Blood pressure 147/74 with a pulse of 62, temperature 98.1. She is 100% on room air. General description is a middle-aged female up in the bed in no distress. RESPIRATORY SYSTEM: Unlabored breathing. Clear to auscultation anteriorly. HEART: S1, S2. Regular rate and rhythm. ABDOMEN: Soft. No tenderness. LABS: Hemoglobin is 13.6, white count 9.6. Urine with an E. coli that is sensitive to ciprofloxacin. DIAGNOSTIC IMPRESSION AND PLAN: 1. Patient with an Escherichia coli urinary tract infection and possible left-sided pyelonephritis. Ultrasound was negative for any structural abnormality. Plan to finish therapy with p.o. Cipro 500 mg twice a day for another 10 days. 2. Right leg wound. Local wound care as ordered. Continue supportive care. MMODL / IJN: [id number] /
== END 2017-05-21 17:38 | disposition home or self-care (01) | DRG 872 ==
LOC: EC 19:20 → 4MS4W 23:45 → 6PED 05-19 07:46 → OBSVTOIN 05-21 12:28
PROVIDERS: ADMIT Hospitalist; ATTEND Hospitalist
DX: A41.9 Sepsis, unspecified organism (principal); N10 Acute pyelonephritis; N39.0 Urinary tract infection, site not specified; B18.2 Chronic viral hepatitis C; B96.20 Unspecified Escherichia coli [E. coli] as the cause of diseases classified elsewhere; E78.5 Hyperlipidemia, unspecified; F17.200 Nicotine dependence, unspecified, uncomplicated; I10 Essential (primary) hypertension; I25.10 Atherosclerotic heart disease of native coronary artery without angina pectoris; K21.9 Gastro-esophageal reflux disease without esophagitis; M19.90 Unspecified osteoarthritis, unspecified site; Z79.01 Long term (current) use of anticoagulants; Z79.82 Long term (current) use of aspirin; Z79.899 Other long term (current) drug therapy; Z80.49 Family history of malignant neoplasm of other genital organs; Z82.5 Family history of asthma and other chronic lower respiratory diseases; Z86.010 Personal history of colon polyps; Z86.718 Personal history of other venous thrombosis and embolism; Z90.49 Acquired absence of other specified parts of digestive tract; Z90.710 Acquired absence of both cervix and uterus
CPT/HCPCS: 36415; 71046; 76770; 80048; 80053; 81001; 83605; 83735; 84132; 85025; 85610; 85730; 87040; 87077; 87086; 87186; 87502; 93005; 94640; 94760; 96361; 96374; 99284

== ENCOUNTER 2017-10-22 | Day surgery (SDC) | payer MEDICARE, OTHER | END 2017-10-22 10:46 | disposition home or self-care (01) | DX: K63.5 Polyp of colon (principal); K57.30 Diverticulosis of large intestine without perforation or abscess without bleeding; Z98.0 Intestinal bypass and anastomosis status; R19.7 Diarrhea, unspecified; K21.9 Gastro-esophageal reflux disease without esophagitis; I10 Essential (primary) hypertension; E78.5 Hyperlipidemia, unspecified; J44.9 Chronic obstructive pulmonary disease, unspecified; Z86.718 Personal history of other venous thrombosis and embolism; Z79.01 Long term (current) use of anticoagulants; B19.20 Unspecified viral hepatitis C without hepatic coma; M19.90 Unspecified osteoarthritis, unspecified site; G89.29 Other chronic pain; M54.9 Dorsalgia, unspecified; F17.200 Nicotine dependence, unspecified, uncomplicated; Z79.82 Long term (current) use of aspirin; Z79.899 Other long term (current) drug therapy; Z91.013 Allergy to seafood ==

== ENCOUNTER → 2018-02-17 | Outpatient (CLI) | payer MEDICARE, OTHER ==
[2018-02-17 14:39] LABS: Basophils # (A) 0.1 k/uL (0-0.2); Basophils % (A) 1 %; Eosinophils # (A) 0.1 k/uL (0-0.7); Eosinophils % (A) 2 %; HCT 46.4 % (34.0-46.0); HGB 14.6 gm/dL (11.4-16.0); Hypochromasia Slight; Lymphocytes # (A) 2.5 k/uL (1.0-4.8); Lymphocytes % (A) 39 %; MCHC 31.6 g/dL (31.0-37.0); MCV 91.8 fL (80.0-100.0); Monocytes # (A) 0.4 k/uL (0-1.0); Monocytes % (A) 5 %; Neutrophils # (A) 3.3 k/uL (1.3-7.7); Neutrophils % (A) 50 %; Platelet Count 272 k/uL (150-450); RBC 5.06 m/uL (3.80-5.40); RDW 14.6 % (11.5-15.5); WBC 6.6 k/uL (3.8-10.6)
[2018-02-17 19:46] LABS: Albumin 4.5 g/dL (3.80-4.90); Albumin/Globulin Ratio 1.61 (1.20-2.10); Anion Gap 13.2 mmol/L (4.00-12.00); Carbon Dioxide 18.8 mmol/L (21.6-31.8); Globulin 2.8 g/dL (2.1-3.7); Potassium 4.4 mmol/L (3.5-5.5); Total Bilirubin 0.6 mg/dL (0.3-1.2); Total Protein 7.3 g/dL (6.2-8.2)
[2018-02-18 15:02] LABS: Alt. alternata IgE Class CLASS 0; Alternaria alternata IgE <0.35 kU/L (<0.35); Asperg. fumagatus IgE <0.35 kU/L (<0.35); Asperg. fumagatus IgE Class CLASS 0; Bermuda Grass IgE <0.35 kU/L (<0.35); Birch(Com.Silvr) IgE <0.35 kU/L (<0.35); Birch(Com.Silvr) IgE Class CLASS 0; Cat Epith & Dander IgE <0.35 kU/L (<0.35); Cat Epith & Dander IgE Class CLASS 0; Clad herbarum IgE <0.35 kU/L (<0.35); Cockroach IgE 1.37 kU/L (<0.35); Cottonwood IgE <0.35 kU/L (<0.35); Dermato. Pteronyssinus IgE 0.44 kU/L (<0.35); Dermato. farinae IgE 0.41 kU/L (<0.35); Dermato. farinae IgE Class CLASS I; Dog Dander IgE <0.35 kU/L (<0.35); Elm IgE <0.35 kU/L (<0.35); Maple (Box Elder) IgE <0.35 kU/L (<0.35); Maple (Box Elder) IgE Class CLASS 0; Mountain Cedar IgE <0.35 kU/L (<0.35); Mountain Cedar IgE Class CLASS 0; Mouse Urine IgE Class CLASS 0; Nettle IgE <0.35 kU/L (<0.35); Nettle IgE Class CLASS 0; Oak IgE <0.35 kU/L (<0.35); Penicillium notatum IgE Class CLASS 0; Rough Marshelder IgE <0.35 kU/L (<0.35); Rough Marshelder IgE Class CLASS 0; Timothy Grass IgE <0.35 kU/L (<0.35); White Ash IgE Class CLASS 0
[2018-02-19 12:07] LABS: Alpha 1 Anti-Trypsin 154 mg/dL (90 - 200)
== END | disposition home or self-care (01) ==
LOC: LABWHC1 11:49
PROVIDERS: ATTEND Internal Medicine Gastroenterology
DX: J45.909 Unspecified asthma, uncomplicated (principal); B18.2 Chronic viral hepatitis C
CPT/HCPCS: 36415; 80053; 82103; 82104; 82785; 85025; 86001; 86003; 86606; 86609; 87522

== ENCOUNTER 2018-12-27 16:07 | Emergency (ER) | payer MEDICARE, OTHER ==
[2018-12-27 16:21] VITALS: BP 156/83; PULSE 68; RESP 16; TEMP 98
--- NOTE | 2018-12-27 16:45 | ED ---
Extremity Problem HPI - General Chief complaint: Extremity Problem,Nontraumatic Stated complaint: LEFT ARM PAIN Time Seen by Provider: 12/27/18 16:25 Source: patient Mode of arrival: ambulatory Limitations: no limitations - History of Present Illness Initial comments: Patient is a 68-year-old female presenting to emergency Department with a chief complaint of left arm pain. Patient reports it started about and has since increased in severity. Patient reports the pain is located along the posterior aspect of the left upper arm. Patient reports the pain starts near the cervical spine radiates along the trapezius, posterior shoulder, right upper arm and proximal posterior forearm. Patient reports she has full range of motion. Patient reports the pain is not exacerbated with any particular movement. Patient reports the pain in the arm is nonreproducible with palpation, however she is tender with palpation along the left-sided trapezius and shoulder. Patient denies any chest pain, diaphoresis, shortness of breath, nausea, vomiting or diarrhea. - Related Data Home Medications Medication Instructions Recorded Confirmed Albuterol Sulfate [Proair Hfa] 2 puff INHALATION Q6HR PRN 06/27/15 10/22/17 Rivaroxaban [Xarelto] 20 mg PO DAILY 08/18/15 10/22/17 HYDROcodone/APAP 10-325MG [[place] 1 tab PO Q6HR PRN 01/31/17 10/22/17 10-325] busPIRone HCL 10 mg PO BID 05/19/17 10/22/17 Atorvastatin [Lipitor] 80 mg PO HS 10/20/17 10/22/17 Baclofen 5 mg PO TID 10/20/17 10/22/17 Furosemide [Lasix] 40 mg PO DAILY 10/20/17 10/22/17 Isosorbide Mononitrate ER [Imdur] 30 mg PO DAILY 10/20/17 10/22/17 Loratadine [Claritin] 10 mg PO DAILY 10/20/17 10/22/17 Montelukast [Singulair] 10 mg PO HS 10/20/17 10/22/17 Varenicline [Chantix Starter Pack] 0.5 mg PO DAILY 10/20/17 10/22/17 diphenhydrAMINE [Benadryl] 25 mg PO DIRECTED PRN 10/20/17 10/22/17 Previous Rx's Medication Instructions Recorded Pantoprazole Sodium [Protonix] 40 mg PO DAILY #30 tablet. 04/26/16 Aspirin 81 mg PO DAILY #30 chew 02/04/17 Metoprolol Tartrate [Lopressor] 25 mg PO BID #60 tab 02/04/17 Nitroglycerin Sl Tabs [Nitrostat] 0.4 mg SUBLINGUAL Q5M PRN #10 tab 02/04/17 Allergies Allergy/AdvReac Type Severity Reaction Status Date / Time shellfish derived [Shellfish] Allergy tongue Verified 12/27/18 16:21 swelling, hives Review of Systems ROS Statement: Those systems with pertinent positive or pertinent negative responses have been documented in the HPI. ROS Other: All systems not noted in ROS Statement are negative. Past Medical History Past Medical History: Asthma, Chest Pain / Angina, COPD, Deep Vein Thrombosis (DVT), GERD/Reflux, Hyperlipidemia, Hypertension, Liver Disease, Osteoarthritis (OA) Additional Past Medical History / Comment(s): numbness/tingling R leg, chronic low back pain and bilateral leg pain, DVT Rt leg in 2005, hepatitis C, diverticulitis, wound on rt leg History of Any Multi-Drug Resistant Organisms: None Reported Past Surgical History: Appendectomy, Bowel Resection, Breast Surgery, Cholecystectomy, Hysterectomy, Orthopedic Surgery, Tubal Ligation Additional Past Surgical History / Comment(s): LEFT KNEE ARTHROSCOPY, LEFT BREAST biopsy Past Anesthesia/Blood Transfusion Reactions: No Reported Reaction Additional Past Anesthesia/Blood Transfusion Reaction / Comment(s): diff IV starts Past Psychological History: Anxiety Smoking Status: Current every day smoker - Past Family History Mother Family Medical History: Cancer Additional Family Medical History / Comment(s): . Sister(s) Family Medical History: Cancer, Deep Vein Thrombosis (DVT) Additional Family Medical History / Comment(s): . Father History Unknown: Yes Family Medical History: No Reported History, Unable to Obtain Additional Family Medical History / Comment(s): Dad but that she does not know his medical problems. Brother(s) Additional Family Medical History / Comment(s): She has one brother with COPD. Daughter(s) Additional Family Medical History / Comment(s): Patient has 4 children. One daughter from a motor vehicle accident. One daughter has had a stroke and myocardial infarction. General Exam Limitations: no limitations General appearance: alert, in no apparent distress Head exam: Present: atraumatic, normocephalic, normal inspection Eye exam: Present: normal appearance Pupils: Present: normal accommodation ENT exam: Present: normal exam, normal oropharynx, mucous membranes moist, TM's normal bilaterally, normal external ear exam Neck exam: Present: normal inspection, tenderness (Left paraspinal tenderness around the cervical prominence), full ROM. Absent: lymphadenopathy Respiratory exam: Present: normal lung sounds bilaterally Cardiovascular Exam: Present: regular rate, normal rhythm, normal heart sounds Extremities exam: Present: normal inspection, full ROM, tenderness (mild tenderness in the posterior aspect of the left shoulder), normal capillary refill, other (+2 ulnar and radial pulses bilaterally.). Absent: pedal edema, joint swelling Back exam: Present: normal inspection, full ROM Neurological exam: Present: alert, oriented X3 Psychiatric exam: Present: normal affect, normal mood Skin exam: Present: warm, intact, normal color Course Vital Signs 12/27/18 16:18 Temperature 98 F Pulse Rate 68 Respiratory 16 Rate Blood Pressure 156/83 O2 Sat by Pulse 98 Oximetry Medical Decision Making - Medical Decision Making Patient is a 68-year-old female presenting to the emergency department with chief complaint of left arm pain. Based on the clinical presentation the pain appears to be starting from the left paraspinal region in the cervical spine it radiates along the shoulder and down to the left arm. Patient does have full range of motion and no obvious signs of trauma. X-ray of the cervical spine that showed multilevel spondylitic changes in the lower spine. Considering these findings, I suspect the patient to have a cervical radiculopathy. Patient advised to follow with orthopedics for further management. Strict return parameters were thoroughly discussed patient was understanding and agreeable. Patient advised to alternate between Tylenol and ibuprofen for pain control. Case discussed physician. Disposition Clinical Impression: Cervical radiculopathy Disposition: HOME SELF-CARE Condition: Stable Instructions (If sedation given, give patient instructions): Cervical Radiculopathy (ED) Additional Instructions: Please follow with orthopedics. Please return to emergency department if symptoms worsen. Is patient prescribed a controlled substance at d/c from ED?: No Referrals: Karin Sal MD [Primary Care Provider] - 1-2 days Curtis Iqbal PAC [PHYSICIAN PHOTOGRAMMETRIC COMPILATION SPECIALIST] - 1-2 days Time of Disposition: 17:27
[2018-12-27] MEDS ORDERED: ACETAMINOPHEN TAB 500 MG TAB PO STA (16:48)
--- NOTE | 2018-12-27 17:16 | XR ---
EXAMINATION TYPE: XR cervical spine comp DATE OF EXAM: 12/27/2018 COMPARISON: NONE HISTORY: Arm pain TECHNIQUE: 5 views FINDINGS: Vertebra have normal alignment. There is degenerative disc space narrowing from C4 to C7 wi th spurring of the endplates. Posterior elements are intact. There are no cervical ribs. Atlantoaxial facet joint is normal. There is no significant neural foraminal impingement. IMPRESSION: Multilevel spondylotic changes in the lower cervical spine. No fracture.
== END 2018-12-27 17:40 | disposition home or self-care (01) ==
LOC: EC 16:07
DX: M54.12 Radiculopathy, cervical region (principal); J44.9 Chronic obstructive pulmonary disease, unspecified; K21.9 Gastro-esophageal reflux disease without esophagitis; E78.5 Hyperlipidemia, unspecified; I10 Essential (primary) hypertension; M19.90 Unspecified osteoarthritis, unspecified site; G89.29 Other chronic pain; M54.5 Low back pain; F17.200 Nicotine dependence, unspecified, uncomplicated; Z79.51 Long term (current) use of inhaled steroids; Z79.899 Other long term (current) drug therapy; Z91.013 Allergy to seafood; Z86.718 Personal history of other venous thrombosis and embolism
CPT/HCPCS: 72050; 99283

== ENCOUNTER → 2019-05-14 | Outpatient (CLI) | payer MEDICARE, OTHER ==
[2019-05-14 14:55] LABS: Albumin 4.7 g/dL (3.5-5.0); Calcium 10.5 mg/dL (8.4-10.2); Potassium 5.1 mmol/L (3.5-5.1); Total Bilirubin 0.7 mg/dL (0.2-1.3); Total Protein 8.3 g/dL (6.3-8.2)
[2019-05-14 15:35] LABS: HCT 44.3 % (34.0-46.0); HGB 13.9 gm/dL (11.4-16.0); Hypochromasia Slight; MCH 26.3 pg (25.0-35.0); MCHC 31.5 g/dL (31.0-37.0); MCV 83.5 fL (80.0-100.0); Mean Platelet Volume 10.2; Platelet Count 290 k/uL (150-450); RBC 5.31 m/uL (3.80-5.40); WBC 7.2 k/uL (3.8-10.6)
== END | disposition home or self-care (01) ==
LOC: LABPAT 12:56
PROVIDERS: ATTEND Orthopaedic Surgery
DX: Z01.812 Encounter for preprocedural laboratory examination (principal); Z79.01 Long term (current) use of anticoagulants
CPT/HCPCS: 36415; 80053; 85027; 86850; 86900; 86901; 87070

== ENCOUNTER → 2019-05-19 | Outpatient (CLI) | payer MEDICARE, OTHER ==
[2019-05-19 14:41] LABS: Partial Thromboplastin Time 25.6 sec (22.0-30.0); Prothrombin Time 10.3 sec (9.0-12.0)
[2019-05-19 14:44] LABS: Appearance,Urine Cloudy (Clear); Bacteria,Urine Rare /hpf; Bilirubin,Urine 1+ (Negative); Blood,Urine Negative (Negative); Color,Urine Yellow; Glucose,Urine (UA) Negative (Negative); Hyaline Casts,Urine 4 /lpf (0-2); Ketones,Urine Trace (Negative); Leukocyte Esterase,Urine Negative (Negative); Mucus,Urine Few /hpf; Nitrite,Urine Negative (Negative); PH, Urine 5.5 (5.0-8.0); Protein,Urine 1+ (Negative); RBC,Urine 1 /hpf (0-5); Specific Gravity,Urine 1.031 (1.001-1.035); Squamous Epithelial Cell,Urine 7 /hpf (0-4); WBC,Urine 2 /hpf (0-5)
== END | disposition home or self-care (01) ==
LOC: LABPAT 13:04
PROVIDERS: ATTEND Orthopaedic Surgery
DX: Z01.818 Encounter for other preprocedural examination (principal); Z51.81 Encounter for therapeutic drug level monitoring; Z79.01 Long term (current) use of anticoagulants
CPT/HCPCS: 36415; 81001; 85610; 85730

== ENCOUNTER 2019-05-24 05:32 | Day surgery (SDC) | payer MEDICARE, OTHER ==
[2019-05-20 10:42] VITALS: BMI 31.6
[~2019-05-24 05:32] MED LIST: ACETAMINOPHEN TAB 500 MG TAB PO ONE; GABAPENTIN 300 MG CAP PO ONE; MELOXICAM 7.5 MG TAB PO ONE; TRANEXAMIC ACID 1,000 MG in SODIUM CHLORIDE 0.9% 100 ML IVPB ONE
[2019-05-24] MEDS ORDERED: MIDAZOLAM 2 MG/2 ML VIAL IV PRN (06:00)
[2019-05-24] MEDS ORDERED: HYDROmorphone 0.5 MG/0.5 ML SYRINGE IVP PRN ×3 (06:00→09:09)
[2019-05-24 06:44] LABS: Glucose,Whole Blood 109 mg/dL (75-99)
[2019-05-24] MEDS: LACTATED RINGERS 1,000 ML IV SCH ×3 (07:01→20:45)
[2019-05-24] MEDS ORDERED: fentaNYL (PF) 50 MCG/ML 2 ML AMP ONE (07:06)
[2019-05-24] MEDS ORDERED: SODIUM CHLORIDE 0.9% 100 ML BAG ONE (07:06)
[2019-05-24] MEDS ORDERED: HEPARIN SODIUM,PORCINE 10,000 UNIT/ML 1 ML VIAL ONE (07:06)
[2019-05-24] MEDS ORDERED: MIDAZOLAM 2 MG/2 ML VIAL ONE (07:06)
[2019-05-24] MEDS ORDERED: PROPOFOL 10 MG/ML 20 ML VIAL IV ONE (07:06)
[2019-05-24] MEDS ORDERED: TRANEXAMIC ACID 1,000 MG/10 ML VIAL ONE (07:06)
[2019-05-24] MEDS ORDERED: LACTATED RINGERS 1,000 ML BAG IV ONE (07:06)
[2019-05-24] MEDS ORDERED: PHENYLEPHRINE-0.9% NACL SYG 1 MG/10 ML SYRINGE ONE (07:06)
[2019-05-24] MEDS: ROPIVACAINE 246.25 MG, EPINEPHrine 0.5 MG, KETOROLAC 30 MG, cloNIDine HCL/PF 80 MCG, WA... MISCELLANE ONE ×10 (07:37→08:32)
[2019-05-24] MEDS ORDERED: ceFAZolin 3,000 MG in SODIUM CHLORIDE 0.9% IRRIGATIO 3,000 ML IRRIGATION ONE (07:39)
[2019-05-24] MEDS ORDERED: LACTATED RINGERS 1,000 ML IV ONE (08:08)
--- NOTE | 2019-05-24 08:44 | P.OP ---
Date of Procedure: 05/24/19 Preoperative Diagnosis: Avascular necrosis left hip Postoperative Diagnosis: Avascular necrosis left hip Procedure(s) Performed: Left total hip arthroplasty with a direct anterior approach Implants: Ortega and nephew Polarstem size 3 standard Ortega [employer] Nephew R3, 3 hole acetabular shell, 48 mm Ortega [employer] Nephew reflection 6.5 mm cancellus screw, 20 mm 2 Ortega [employer] Nephew R3, XLPE 20 acetabular liner Ortega [employer] Nephew Oxinium femoral head 32 m, -3 All components were press-fit. The articulation is Oxinium on polyethylene. Anesthesia: spinal Surgeon: Fahad Madera Dealership Manager #1: Rachana Moura Estimated Blood Loss (ml): 200 (65 mL returned with Cell Saver) Pathology: other (Femoral head) Condition: stable Disposition: PACU Indications for Procedure: After failure of conservative treatment we discussed the surgical and no nsurgical treatment options at length. Patient wishes to proceed with a total hip arthroplasty with a direct anterior approach. Complications specific to this procedure were discussed at length, including but not limited to infection, leg length discrepancy, dislocation, and nerve injury. Patient is aware of all these complications and informed consent was obtained Operative Findings: The operative findings are consistent with avascular necrosis of the femoral head Description of Procedure: Patient was seen and evaluated in the preoperative area, consent was reviewed, and the surgical site was marked with a skin marker. Patient was then brought to the operating room and given prophylactic antibiotics intravenously. 1 g of Tranexamic acid was also given. A spinal anesthetic was administered by the anesthesia department. The patient was then placed on the [place] table with the bony prominences well-padded. The hip area was then prepped and draped in usual sterile fashion. A universal timeout was then performed, which confirmed the patient's name, surgical site, ALLERGIES, and procedure being performed. Next the incision site was located at 1 cm distal and 1 cm lateral to the anterior superior iliac spine. The skin and subcutaneous tissues were sharply incised. Incision was carefully dissected down to the fascia overlying the tensor fascia ivelisse muscle. This fascia was then incised in line with the incision. Next, using blunt finger dissection, the tensor fascia ivelisse muscle was dissected off its investing fascia. The muscle was then carefully retracted laterally with a cobra retractor over the lateral neck of the femur. Next, the circumflex vessels were identified and cauterized using the AquaMantis device. The anterior hip capsule was then exposed. The capsule was then opened and an inverted T fashion. Cobra retractors were then placed intracapsularly. The proximal femur was then visualized. The femoral neck was then osteotomized appropriate level above the lesser trochanter. Small amount of traction was placed with the [place] table. A small wedge of bone was then removed from the remaining femoral head. Next, using a corkscrew femoral head was easily removed from the acetabulum. On gross visual inspection, the femoral head had complete loss of articular cartilage in multiple periarticular osteophytes. Attention was then turned to the acetabulum. the acetabulum was exposed and any remaining labrum was excised. Sequential reaming of the acetabulum was performed using fluoroscopic guidance. When the appropriate size was reached, a trial was then placed. The position and fit of the trial was checked with fluoroscopy. The trial was then removed. Then, using fluoroscopic guidance, the final implant was impacted at 20 of anteversion and 40 of abduction, and fully seated in the acetabulum. 2 screws were then placed in the acetabulum. Again fluoroscopy was used to check position of the screws. Next, the liner was then impacted, with a 20 elevated liner located in the anterior superior quadrant. Component locking was confirmed. Attention was then directed to the femur. With the aid of the [place] table, the femur was externally rotated to approximately 130, extended, and abducted under the opposite leg. A side hook was then placed under the proximal femur, and the side hook elevator was used to elevate the proximal femur. Retractors were then placed. A capsular release was performed, as well as a release of the conjoined tendon, which afforded excellent visualization of the proximal femur. Next, a box osteotome was used to lateralize the proximal femur. A crocheter hand was then used to locate the femoral canal. Sequential broaching was then performed with appropriate size which afforded excellent fixation in the proximal femur. A trial was then placed with appropriate head and neck, and the hip was gently reduced with the aid of the [place] table. Fluoroscopy was then used to check position of the components, as well as to ensure equal leg lengths. The hip was then gently dislocated and the trials were then removed. Final implants were t hen impacted and the hip was again reduced. Final fluoroscopic x-rays confirmed that the components were in anatomic position, as well as equal leg lengths. The hip was also taken through range of motion, and found to be stable. The hip was then copiously irrigated with antibiotic solution with pulsatile lavage. The hip was then irrigated with Irrisept solution. The soft tissues were then injected with a ropivacaine solution, which consisted of 246.25 mg of ropivacaine, 0.5 mg of epinephrine, 30 mg of Toradol, 80 g of clonidine, and 48.45 mL of sterile water, for a total of 100 mL of fluid injected. A second dose of 1 g of Tranexamic acid was also given. the fascia was then closed with 2-0 strata fix suture. The subcutaneous tissue was closed with 3-0 Vicryl. The subcuticular tissue was closed with 3-0 strata fix suture. The skin was then closed with Dermabond glue and a sterile silver dressing. The patient was then transferred to the recovery room in stable condition. The marketing communications assistant SHAHID Guadarrama was required due to the complexity of surgery, and the need for skilled ophthalmic surgical assistant for positioning, draping, exposure, retraction, and closure of the wound.
[2019-05-24] MEDS ORDERED: ASPIRIN 81 MG PO SCH (09:00)
[2019-05-24] MEDS ORDERED: HYDROcodone/APAP 7.5-325MG 1 EACH TAB PO PRN ×2 (09:09)
[2019-05-24] MEDS ORDERED: NALOXONE 0.4 MG/ML 1 ML VIAL IV PRN (09:09)
[2019-05-24] MEDS ORDERED: MAGNESIUM HYDROXIDE 2,400 MG/10 ML CUP PO PRN (09:09)
--- NOTE | 2019-05-24 09:12 | FL ---
EXAMINATION TYPE: FL guidance operating room, XR Hip Limited LT DATE OF EXAM: 05/24/2019 CLINICAL HISTORY: Fluoroscopic documentation during left hip arthroplasty. TECHNIQUE: Fluoroscopy. COMPARISON: None. FINDINGS: Fluoroscopic guidance was provided during pain relief procedure performed by Dr. Madera . A total of 45 seconds of fluoroscopic time was utilized during the procedure and two spot images a re acquired during left hip arthroplasty IMPRESSION: As Above.
[2019-05-24 09:24] LABS: Glucose,Whole Blood 95 mg/dL (75-99)
[2019-05-24] MEDS ORDERED: FUROSEMIDE 40 MG TAB PO PRN (10:49)
[2019-05-24] MEDS ORDERED: NITROGLYCERIN SL TABS 0.4 MG TAB SUBLINGUAL PRN (10:49)
[2019-05-24] MEDS: HYDROcodone/APAP 10-325MG 1 EACH TAB PO PRN ×3 (11:09→23:31)
[2019-05-24 11:59] LABS: Glucose,Whole Blood 134 mg/dL (75-99)
[2019-05-24 12:23] VITALS: RESP 18
[2019-05-24] MEDS: HYDROmorphone 0.5 MG/0.5 ML SYRINGE IVP PRN ×3 (13:58→20:45)
[2019-05-24] MEDS: busPIRone HCl 10 MG TAB PO PRN (15:50)
[2019-05-24] MEDS: RIVAROXABAN 20 MG TAB PO SCH (17:00)
[2019-05-24 17:03] LABS: Glucose,Whole Blood 96 mg/dL (75-99)
[2019-05-24] MEDS: SYMBICORT 80-4.5 MCG INHALER INHALATION SCH (19:41)
[2019-05-24 19:49] LABS: Glucose,Whole Blood 124 mg/dL (75-99)
[2019-05-24] MEDS: MONTELUKAST 10 MG TAB PO SCH (20:45)
[2019-05-24] MEDS: SENNOSIDES-DOCUSATE SODIUM 1 EACH TAB PO SCH (20:45)
[2019-05-24] MEDS ORDERED: ASPIRIN 325 MG TAB PO SCH (21:00)
[2019-05-24] MEDS: NICOTINE 21MG/24HR PATCH TRANSDERM SCH (21:20)
[2019-05-25] MEDS: HYDROmorphone 0.5 MG/0.5 ML SYRINGE IVP PRN ×6 (00:40→22:53)
[2019-05-25] MEDS: LACTATED RINGERS 1,000 ML IV SCH ×5 (04:51→23:40)
[2019-05-25 06:55] LABS: Glucose,Whole Blood 133 mg/dL (75-99)
[2019-05-25] MEDS: PANTOPRAZOLE 40 MG TABLET PO SCH (07:34)
[2019-05-25] MEDS: LORATADINE 10 MG TAB PO SCH (07:35)
[2019-05-25] MEDS: LISINOPRIL 20 MG TAB PO SCH (07:35)
[2019-05-25] MEDS: ASPIRIN 81 MG PO SCH ×2 (07:35)
[2019-05-25] MEDS: MELOXICAM 7.5 MG TAB PO SCH (07:35)
[2019-05-25] MEDS: NICOTINE 21MG/24HR PATCH TRANSDERM SCH (07:36)
[2019-05-25] MEDS: SYMBICORT 80-4.5 MCG INHALER INHALATION SCH ×2 (07:50→19:31)
[2019-05-25 08:00] LABS: Basophils % (A) 0 %; Eosinophils # (A) 0.1 k/uL (0-0.7); Eosinophils % (A) 2 %; HCT 30.2 % (34.0-46.0); Hypochromasia Moderate; Lymphocytes # (A) 1.7 k/uL (1.0-4.8); Lymphocytes % (A) 23 %; MCHC 31.7 g/dL (31.0-37.0); Mean Platelet Volume 8.9; Monocytes # (A) 0.5 k/uL (0-1.0); Monocytes % (A) 7 %; Neutrophils # (A) 4.9 k/uL (1.3-7.7); Neutrophils % (A) 65 %; Platelet Count 260 k/uL (150-450); RBC 3.56 m/uL (3.80-5.40); RDW 15.8 % (11.5-15.5); WBC 7.5 k/uL (3.8-10.6)
[2019-05-25 08:11] LABS: HGB 9.6 gm/dL (11.4-16.0)
[2019-05-25] MEDS: HYDROcodone/APAP 10-325MG 1 EACH TAB PO PRN ×3 (08:47→21:30)
[2019-05-25 11:36] LABS: Glucose,Whole Blood 155 mg/dL (75-99)
[2019-05-25 16:52] LABS: Glucose,Whole Blood 159 mg/dL (75-99)
[2019-05-25] MEDS: RIVAROXABAN 20 MG TAB PO SCH (17:31)
--- NOTE | 2019-05-25 17:43 | PN ---
PROGRESS NOTE DATE OF SERVICE: 05/25/2019 CHIEF COMPLAINT: Status post left hip replacement. HISTORY OF PRESENT ILLNESS: This lady is having quite a bit of discomfort. Other than that she has been stable. Vital signs are normal. She is not short of breath. She has had no chest pain. PHYSICAL EXAMINATION: Chest is clear. Cardiac exam is normal. Abdomen is soft, nontender. IMPRESSION: Status post left total hip replacement. PLAN: Start physical therapy today. It is unclear whether or not she will be going home or to rehab. MMODL / IJN: [id number] /
[2019-05-25] MEDS: SENNOSIDES-DOCUSATE SODIUM 1 EACH TAB PO SCH (20:24)
[2019-05-25] MEDS: MONTELUKAST 10 MG TAB PO SCH (20:24)
[2019-05-25 20:35] LABS: Glucose,Whole Blood 128 mg/dL (75-99)
--- NOTE | 2019-05-25 20:36 | CONS ---
CONSULTATION CHIEF COMPLAINT: Arthritis left hip. HISTORY OF PRESENT ILLNESS: This 68-year-old female was brought in for elective JR. She is in good health except for some problems with COPD. She also has type 2 NIDDM. She has quite a bit of difficulty with anxiety. REVIEW OF SYSTEMS: She has had no headaches, recent neurologic changes, problems with vision or hearing, chest pain, shortness of breath, cough hemoptysis, angina, infarctions, palpitations, orthopnea, PND, abdominal pain, nausea, vomiting, hematemesis, melena, hematochezia, jaundice, hepatitis, cirrhosis, renal failure, hematuria, frequency, urgency, dysuria, incontinence, etc. Past medical history, family history, personal and social histories reveal that she has no allergies. She takes Protonix 40 mg twice a day, lisinopril 40 mg once a day, montelukast 10 mg a day, metformin 500 mg once a day, Xarelto 20 mg once a day, ProAir 2 puffs q.i.d. p.r.n., 81 mg of aspirin, Vicodin 7.5 q.i.d. p.r.n., hydrochlorothiazide 12.5 mg once a day, loratadine 10 mg once a day, and Advair 50-50 1 puff twice a day. Surgically, she has had a cholecystectomy, procedure for diverticulitis, hysterectomy, tubal ligation, procedure on the left knee and left breast biopsy. She has had 10 pregnancies and 3 children. She does continue to smoke. PHYSICAL EXAMINATION: Blood pressure 130/80, pulse of 66, respirations 14. She is afebrile. In general she appeared to be overweight, but no acute distress. Skin color is normal. Skin is warm, dry. Lymph nodes are not enlarged. Head, ears, eyes, nose, mouth, and throat were normal. Neck veins not distended. Carotids normal. Thyroid was not enlarged. The chest is normal and clear to auscultation and percussion. Cardiac exam demonstrated normal sinus rhythm and no murmurs or extra sounds. The abdomen is soft and nontender without visceromegaly or masses. Bowel sounds are present. The extremities were normal and neurologically she is intact. IMPRESSION: She is admitted to the hospital with diagnoses: 1. Osteoarthritis of the left hip. 2. Hypertension. 3. Type 2 and IDDM. RECOMMENDATION: None. She is in good condition and should tolerate her procedure well. She can be started back on Lovenox the day after surgery. MMODL / IJN: [id number] /
[2019-05-25] MEDS: busPIRone HCl 10 MG TAB PO PRN (22:55)
[2019-05-26] MEDS: HYDROmorphone 0.5 MG/0.5 ML SYRINGE IVP PRN ×3 (01:51→10:38)
[2019-05-26 06:56] LABS: Glucose,Whole Blood 118 mg/dL (75-99)
[2019-05-26] MEDS: SYMBICORT 80-4.5 MCG INHALER INHALATION SCH (07:28)
[2019-05-26] MEDS: ASPIRIN 81 MG PO SCH ×2 (08:09→08:15)
[2019-05-26] MEDS: LACTATED RINGERS 1,000 ML IV SCH (08:10)
[2019-05-26] MEDS: PANTOPRAZOLE 40 MG TABLET PO SCH (08:15)
[2019-05-26] MEDS: NICOTINE 21MG/24HR PATCH TRANSDERM SCH (08:15)
[2019-05-26] MEDS: LISINOPRIL 20 MG TAB PO SCH (08:15)
[2019-05-26] MEDS: MELOXICAM 7.5 MG TAB PO SCH (08:15)
[2019-05-26] MEDS: LORATADINE 10 MG TAB PO SCH (08:15)
[2019-05-26] MEDS: HYDROcodone/APAP 10-325MG 1 EACH TAB PO PRN (08:15)
--- NOTE | 2019-05-26 08:30 | P.DS ---
Providers Attending physician: Fahad Madera Consults: 05/24/19 09:09 Consult Physician Routine Consulting Provider: Ramesh Reed Consult Reason/Comments: Medical management Do you want consulting provider notified?: Yes Primary care physician: Ramesh Reed [facility] Course: This is a 68-year-old female with known history of degenerative arthritis of the left hip. The patient presented for evaluation by Dr. Madera. After discussion and consideration patient elects to proceed with total left hip arthroplasty. The patient is seen preoperatively by Dr. Reed and cleared for surgery. Patient is admitted to [facility] on 05/24/19 for left total hip arthroplasty. The procedures performed without complication or sequelae. The patient is doing well postoperatively. Labs and vital signs are stable on day of discharge. The patient is examined bedside this morning. The patient states she is experiencing moderate pain in the left hip. She states the pain radiates into the thigh. She states she has been working with physical therapy, and per nursing she is ambulating with a walker with minimal assistance. The patient states she would like to return home today, she has help from her daughter and she has no stairs in the home. The patient states feels well this morning, she denies chest pain, shortness of breath, nausea, vomiting. She is tolerating her diet well. She has no new complaints this morning. Vital signs stable. On examination, the patient is sitting up in bed in no apparent distress. She is alert and oriented 3. On inspection of the left hip, there is a clean, dry, intact dressing in place. There is no drainage through the dressing. There is mild pain on palpation of the hip and thigh. Patient has good strength and range of motion of her left ankle. Motor and sensory function appear to be intact of the left lower extremity. The left lower extremity is warm and well- perfused with brisk capillary refill distally. Left calf is soft and nontender to palpation. Patient is discharged to home in good condition today, pending medical clearance. Please see med rec for accurate list of discharge medications. Patient Condition at Discharge: Fair Plan - Discharge Summary Discharge Rx Participant: Yes New Discharge Prescriptions: No Action Albuterol Sulfate [Proair Hfa] 2 puff INHALATION Q6HR PRN PRN Reason: Shortness Of Breath Or Wheezing Pantoprazole Sodium [Protonix] 40 mg PO DAILY #30 tablet.dr Nitroglycerin Sl Tabs [Nitrostat] 0.4 mg SUBLINGUAL Q5M PRN #10 tab PRN Reason: Chest Pain busPIRone HCL 10 mg PO BID PRN PRN Reason: Anxiety Furosemide [Lasix] 40 mg PO DAILY PRN PRN Reason: swelling Montelukast [Singulair] 10 mg PO HS Loratadine [Claritin] 10 mg PO DAILY Hydrocodone/Acetaminophen [[place] 7.5-325] 1 tab PO QID Fluticasone/Salmeterol [Advair 250-50 Diskus] 1 inhalation PO BID Lisinopril 40 mg PO DAILY Aspirin [Adult Low Dose Aspirin EC] 81 mg PO DAILY metFORMIN HCL [Glucophage] 500 mg PO DAILY Enoxaparin [Lovenox] 80 mg SQ Q12H Rivaroxaban [Xarelto] 20 mg PO DAILY Discharge Medication List Albuterol Sulfate [Proair Hfa] 2 puff INHALATION Q6HR PRN 06/27/15 [History] Pantoprazole Sodium [Protonix] 40 mg PO DAILY #30 tablet. 04/26/16 [Rx] Nitroglycerin Sl Tabs [Nitrostat] 0.4 mg SUBLINGUAL Q5M PRN #10 tab 02/04/17 [Rx] busPIRone HCL 10 mg PO BID PRN 05/19/17 [History] Furosemide [Lasix] 40 mg PO DAILY PRN 10/20/17 [History] Loratadine [Claritin] 10 mg PO DAILY 10/20/17 [History] Montelukast [Singulair] 10 mg PO HS 10/20/17 [History] Aspirin [Adult Low Dose Aspirin EC] 81 mg PO DAILY 05/20/19 [History] Enoxaparin [Lovenox] 80 mg SQ Q12H 05/20/19 [History] Fluticasone/Salmeterol [Advair 250-50 Diskus] 1 inhalation PO BID 05/20/19 [History] Hydrocodone/Acetaminophen [[place] 7.5-325] 1 tab PO QID 05/20/19 [History] Lisinopril 40 mg PO DAILY 05/20/19 [History] Rivaroxaban [Xarelto] 20 mg PO DAILY 05/20/19 [History] metFORMIN HCL [Glucophage] 500 mg PO DAILY 05/20/19 [History] Follow up Appointment(s)/Referral(s): Ramesh Reed MD [Primary Care Provider] - 1 Week [facility], [NON-STAFF] - Fahad Madera DO [Doctor of Osteopathic Medicine] - 06/04/19 10:10 am Activity/Diet/Wound Care/Special Instructions: May bear wt as tolerate w walker. Keep Optifoam dressing in place 10 days. May shower 48h post op. Pain medication per Dr Reed- pain contract. Anticoagulation per Dr Reed, pt on Xarelto. Recommend taking a stool softener while on Narcotic medication. Discharge Disposition: HOME WITH HOME HEALTH SERVICES
[2019-05-26 08:42] VITALS: BP 121/73; PULSE 77; TEMP 98.4
[2019-05-26 11:35] LABS: Glucose,Whole Blood 117 mg/dL (75-99)
--- NOTE | 2019-05-26 11:58 | PN ---
PROGRESS NOTE DATE OF SERVICE: 05/26/2019 CHIEF COMPLAINT: Status post left hip replacement. HISTORY OF PRESENT ILLNESS: This lady is doing fairly well and it is expected that she will go home today. She is not going to rehab. PHYSICAL EXAMINATION: Chest is clear. Cardiac exam is normal. Abdomen is soft, nontender. IMPRESSION: Status post left hip replacement. PLAN: Home today and she will be contacted to follow up in the office in the next 7 days for followup. MMODL / IJN: [id number] /
--- NOTE | 2019-05-26 13:58 | P.PN ---
Subjective Progress Note Date: 05/25/19 Principal diagnosis: Post op total left hip This is a 68-year-old female who is status post total left hip arthroplasty with anterior approach. She has no new complaints or concerns today. Vital signs are stable. Objective - Vital Signs Vital signs: Vital Signs Temp 99.5 F 05/25/19 09:03 Pulse 74 05/25/19 09:03 Resp 18 05/25/19 09:03 BP 106/58 05/25/19 09:03 Pulse Ox 96 05/25/19 09:03 Intake & Output 05/24/19 05/25/19 05/25/19 18:59 06:59 18:59 Intake Total 195 960 Output Total 200 Balance 1751 960 Weight 78 kg Intake: IV 1950 Oral 960 Output: Estimated Blood Loss 200 Other: Voiding Method Toilet Toilet # Voids 1 2 - Exam This is a pleasant 68 year old female in no acute distress. She is alert and oriented to person, place and time. Exam of the lower extremities reveals that her dressing is clean, dry and intact. She has full foot and ankle motion without difficulty or pain. Neurovascular status to the lower extremities intact. - Labs CBC & Chem 7: 05/25/19 06:48 Labs: Abnormal Lab Results - Last 24 Hours (Table) 05/24/19 05/24/19 05/25/19 Range/Units 11:57 19:48 06:48 RBC 3.56 L (3.80-5.40) m/uL Hgb 9.6 L D (11.4-16.0) gm/dL Hct 30.2 L (34.0-46.0) % RDW 15.8 H (11.5-15.5) % POC Glucose (mg/dL) 134 H 124 H (75-99) mg/dL 05/25/19 Range/Units 06:52 RBC (3.80-5.40) m/uL Hgb (11.4-16.0) gm/dL Hct (34.0-46.0) % RDW (11.5-15.5) % POC Glucose (mg/dL) 133 H (75-99) mg/dL Assessment and Plan (1) Degenerative arthritis Status: Acute Code(s): M19.90 - UNSPECIFIED OSTEOARTHRITIS, UNSPECIFIED SITE SNOMED Code(s): 525941684 (2) Status post total hip replacement, left Status: Acute Code(s): Z96.642 - PRESENCE OF LEFT ARTIFICIAL HIP JOINT SNOMED Code(s): 902645192200 Plan: The clinical findings are discussed with the patient. She is to begin physical therapy today. We are planning discharge to home tomorrow if doing well.
== END 2019-05-26 12:02 | disposition home health service (06) ==
LOC: OR 05:32 → 4SSUR 08:52 → OR 05-26 12:02
PROVIDERS: ATTEND Orthopaedic Surgery
DX: M87.052 Idiopathic aseptic necrosis of left femur (principal); M25.752 Osteophyte, left hip; E78.5 Hyperlipidemia, unspecified; H40.9 Unspecified glaucoma; I10 Essential (primary) hypertension; E11.9 Type 2 diabetes mellitus without complications; B19.20 Unspecified viral hepatitis C without hepatic coma; J44.9 Chronic obstructive pulmonary disease, unspecified; F41.9 Anxiety disorder, unspecified; Z90.49 Acquired absence of other specified parts of digestive tract; Z90.710 Acquired absence of both cervix and uterus; Z98.51 Tubal ligation status; Z98.890 Other specified postprocedural states; M16.12 Unilateral primary osteoarthritis, left hip; K57.92 Diverticulitis of intestine, part unspecified, without perforation or abscess without bleeding; F14.11 Cocaine abuse, in remission; I25.10 Atherosclerotic heart disease of native coronary artery without angina pectoris; Z87.448 Personal history of other diseases of urinary system; Z86.718 Personal history of other venous thrombosis and embolism; F17.210 Nicotine dependence, cigarettes, uncomplicated; J98.4 Other disorders of lung; Z82.49 Family history of ischemic heart disease and other diseases of the circulatory system; Z79.84 Long term (current) use of oral hypoglycemic drugs; Z79.01 Long term (current) use of anticoagulants; Z79.82 Long term (current) use of aspirin; Z79.51 Long term (current) use of inhaled steroids; Z79.891 Long term (current) use of opiate analgesic; Z79.899 Other long term (current) drug therapy; Z91.013 Allergy to seafood
CPT/HCPCS: 94640 ×4; 97116 ×2; 97110; 97161; 97535; 97165; 86891; 88305; 85025; 88311; 73501; 27130; C1776; S4990 ×3; J2250; J0171; J1644; J0690 ×2; J3010; J1885; J2795; J2370; J2704; J0735; J1170 ×3; 86850; 86900; 86901

== ENCOUNTER → 2020-04-11 | Outpatient (CLI) | payer MEDICARE, OTHER ==
--- NOTE | 2020-04-12 00:49 | CT ---
EXAMINATION TYPE: CT abdomen pelvis w con DATE OF EXAM: 04/11/2020 COMPARISON: 12/01/2015 HISTORY: Left side abdominal pain CT DLP: 987.2 mGycm Automated exposure control for dose reduction was used. CONTRAST: Performed with IV Contrast, patient injected with 80 mL of Isovue 300. Images obtained from the diaphragm to the floor the pelvis with oral and IV contrast. The lung bases are clear. There is no pleural effusion. There is no pericardial effusion. Heart appea rs top normal in size. There are clips from cholecystectomy. Liver and spleen appear intact. Stomach is intact. There is no pancreatic mass. The bile ducts are not dilated. There is no adrenal mass. Kidneys show satisfactory contrast opacification. There is no hydronephrosi s. Delayed images show normal renal excretion. Ureters are not dilated. Abdominal aorta is atheromato us. There is no retroperitoneal adenopathy. There is left hip prosthesis. The bony pelvis is intact. The sacroiliac joints appear intact. Bladder distends smoothly. There is no free fluid in the pelvis. There are isolated sigmoid diverticula. The lumbar vertebra have normal alignment. There is vacuum disc and slight narrowing at L4-5 disc. Th ere is no compression fracture. There is no mesenteric edema. There is no ascites or free air. There is no sign of a bowel obstructio n. Appendix is not seen. There is no sign of thickened appendix. IMPRESSION: No acute abnormality of the abdomen pelvis. Atherosclerotic vascular disease. There is clearing of th e inflammatory changes of the sigmoid colon compared to old exam.
== END | disposition home or self-care (01) ==
LOC: RADCTMAIN 16:25
PROVIDERS: ATTEND Family Medicine
DX: K52.9 Noninfective gastroenteritis and colitis, unspecified (principal)
CPT/HCPCS: 82565; 84520; 74177; 36415; Q9967

== ENCOUNTER 2023-02-11 07:36 | Day surgery (SDC) | payer MEDICARE, OTHER ==
[2022-11-21 16:09] VITALS: BMI 29.2
[~2023-02-11 07:36] MED LIST changes: -ACETAMINOPHEN TAB 500 MG TAB PO ONE; -GABAPENTIN 300 MG CAP PO ONE; +LACTATED RINGERS 1,000 ML IV SCH; -MELOXICAM 7.5 MG TAB PO ONE; -TRANEXAMIC ACID 1,000 MG in SODIUM CHLORIDE 0.9% 100 ML IVPB ONE
[2023-02-11 09:00] LABS: Glucose,Whole Blood 100 mg/dL (70-110)
[2023-02-11 09:02] VITALS: TEMP 97.1
[2023-02-11] MEDS ORDERED: PROPOFOL 10 MG/ML 20 ML VIAL IV ONE (09:19)
[2023-02-11] MEDS ORDERED: LIDOCAINE 1% INJ 10MG/ML (20 ML MDV) ONE (09:19)
--- NOTE | 2023-02-11 09:23 | P.GSHP ---
History of Present Illness H&P Date: 02/11/23 Chief Complaint: Abnormal stool tests, history of polyps 72-year-old female known to our service. Last colonoscopy 5 years ago. Small polyp seen. Patient with history of previous sigmoid resection for diverticulitis. She had a recent stool test that was abnormal she says. Past Medical History Past Medical History: Asthma, Chest Pain / Angina, COPD, Deep Vein Thrombosis (DVT), GERD/Reflux, Hyperlipidemia, Hypertension, Liver Disease, Osteoarthritis (OA) Additional Past Medical History / Comment(s): numbness/tingling R leg, chronic low back pain and bilateral leg pain, DVT Rt leg in 2005, diverticulitis, wound on rt leg - d/c'd from wound care, pinhole remains, no drainage History of Any Multi-Drug Resistant Organisms: None Reported Past Surgical History: Appendectomy, Bowel Resection, Breast Surgery, Cholecystectomy, Hysterectomy, Orthopedic Surgery, Tubal Ligation Additional Past Surgical History / Comment(s): Lt THR, left knee arthroscopy, left breast biopsy, colonoscopy, egd Past Anesthesia/Blood Transfusion Reactions: No Reported Reaction Additional Past Anesthesia/Blood Transfusion Reaction / Comment(s): difficult IV start Smoking Status: Current every day smoker - Past Family History Mother Family Medical History: Cancer Additional Family Medical History / Comment(s): voice box removed Sister(s) Family Medical History: Cancer, Deep Vein Thrombosis (DVT) Additional Family Medical History / Comment(s): .breast Father History Unknown: Yes Family Medical History: No Reported History, Unable to Obtain Additional Family Medical History / Comment(s): Dad but that she does not know his medical problems. Brother(s) Additional Family Medical History / Comment(s): She has one brother with COPD. Daughter(s) Additional Family Medical History / Comment(s): Patient has 4 children. One daughter from a motor vehicle accident. One daughter has had a stroke and myocardial infarction. Medications and Allergies Home Medications Medication Instructions Recorded Confirmed Type Albuterol Sulfate [Proair Hfa] 2 puff INHALATION Q6HR PRN 06/27/15 02/11/23 History Nitroglycerin Sl Tabs [Nitrostat] 0.4 mg SUBLINGUAL Q5M PRN #10 tab 02/04/17 02/11/23 Rx Montelukast [Singulair] 10 mg PO DAILY 10/20/17 02/11/23 History Aspirin [Adult Low Dose Aspirin EC] 81 mg PO DAILY 05/20/19 02/11/23 History Hydrocodone/Acetaminophen [[place] 1 tab PO TID PRN 05/20/19 02/11/23 History 7.5-325] Rivaroxaban [Xarelto] 20 mg PO DAILY 05/20/19 02/11/23 History lisinopriL 40 mg PO DAILY 05/20/19 02/11/23 History clonazePAM [KlonoPIN] 0.5 mg PO BID PRN 11/16/19 02/11/23 History Atorvastatin [Lipitor] 20 mg PO DAILY 11/21/22 02/11/23 History Fluticasone Nasal [place] [Flonase 2 spray EA NOSTRIL DAILY 11/21/22 02/11/23 History Nasal [place]] Ergocalciferol [Vitamin D2 (1250 1 tab PO Q15D 02/06/23 02/11/23 History Mcg = 34330 Iu)] Fluticasone/Umeclidin/[place] 1 puff INHALATION DAILY 02/06/23 02/11/23 History [Trelegy Ellipta 100-62.5-25] Pantoprazole Sodium [Protonix] 40 mg PO BID 02/06/23 02/11/23 History Allergies Allergy/AdvReac Type Severity Reaction Status Date / Time No Known Allergies Allergy Verified 02/11/23 08:39 Surgical - Exam Vital Signs Temp Pulse Resp BP Pulse Ox 97.1 F L 60 16 148/75 98 02/11/23 08:37 02/11/23 08:37 02/11/23 08:37 02/11/23 08:37 02/11/23 08:37 Physical exam: General: Well-developed, well-nourished HEENT: Normocephalic, sclerae nonicteric Abdomen: Nontender, nondistended Extremities: No edema Neuro: Alert and oriented Assessment and Plan (1) Abnormal stool test Narrative/Plan: Will proceed with colonoscopy at this time Current Visit: Yes Status: Acute Code(s): R19.5 - OTHER FECAL ABNORMALITIES SNOMED Code(s): 426135023
--- NOTE | 2023-02-11 09:33 | P.PCN ---
Date of Procedure: 02/11/23 Procedure(s) Performed: PREOPERATIVE DIAGNOSIS: Abnormal stool test with history of polyps POSTOPERATIVE DIAGNOSIS: Scattered diverticulosis PROCEDURE: Colonoscopy ANESTHESIA: MAC SURGEON: Ethan Fernandez M.D. SPECIMENS: None ENDOSCOPIC PROCEDURE: The patient was placed on the endoscopy table in the left decubitus position. The Olympus colonoscope was inserted into the anus and passed under direct visualization to the base of the cecum. The appendiceal orifice was visualized. From that point the scope was slowly withdrawn inspecting all surfaces carefully. There were no neoplastic inflammatory or polypoid lesions throughout the cecum, ascending, transverse, and descending colon. The colorectal anastomosis was widely patent. There was no abnormalities in the rectum. There was mild scattered diverticulosis noted. Digital rectal examination was normal. The patient was taken to the recovery room in stable condition per anesthesia guidelines. RECOMMENDATIONS: Resume diet. Repeat colonoscopy 5-7 years.
[2023-02-11 10:14] VITALS: BP 119/68; PULSE 72; RESP 14
== END 2023-02-11 10:18 | disposition home or self-care (01) ==
LOC: ORWHC2ENDO 07:36
PROVIDERS: ATTEND Surgery
DX: R19.5 Other fecal abnormalities (principal); I20.89 Other forms of angina pectoris; J44.9 Chronic obstructive pulmonary disease, unspecified; K21.9 Gastro-esophageal reflux disease without esophagitis; M19.90 Unspecified osteoarthritis, unspecified site; E78.5 Hyperlipidemia, unspecified; I10 Essential (primary) hypertension; G89.29 Other chronic pain; Z86.010 Personal history of colon polyps; Z90.49 Acquired absence of other specified parts of digestive tract; Z90.710 Acquired absence of both cervix and uterus; Z86.718 Personal history of other venous thrombosis and embolism; Z98.51 Tubal ligation status; Z98.890 Other specified postprocedural states; F17.200 Nicotine dependence, unspecified, uncomplicated; Z79.51 Long term (current) use of inhaled steroids; Z79.01 Long term (current) use of anticoagulants; Z79.899 Other long term (current) drug therapy
CPT/HCPCS: J2001; J2704; G0105; 45378

== ENCOUNTER 2024-03-01 08:04 | Emergency (ER) | payer MEDICARE, OTHER ==
[2024-03-01 08:10] VITALS: TEMP 98.8
--- NOTE | 2024-03-01 08:26 | ED ---
General Adult HPI - General Chief complaint: Upper Respiratory Infection Stated complaint: SOB,chest pain Time Seen by Provider: 03/01/24 08:06 Source: patient, EMS, RN notes reviewed, old records reviewed Mode of arrival: EMS Limitations: no limitations - History of Present Illness Initial comments: 73-year-old female presenting with cough and congestion over the past 2 weeks. Cough productive of green sputum. She has had no fever. She reports mild dyspnea associated with cough. History of COPD and patient is a current smoker. She has had no lower extremity pain or swelling. No central chest pain. - Related Data Home Medications Medication Instructions Recorded Confirmed Albuterol Sulfate [Proair Hfa] 2 puff INHALATION Q6HR PRN 06/27/15 02/11/23 Montelukast [Singulair] 10 mg PO DAILY 10/20/17 02/11/23 Aspirin [Adult Low Dose Aspirin EC] 81 mg PO DAILY 05/20/19 02/11/23 Hydrocodone/Acetaminophen [[place] 1 tab PO TID PRN 05/20/19 02/11/23 7.5-325] Rivaroxaban [Xarelto] 20 mg PO DAILY 05/20/19 02/11/23 lisinopriL 40 mg PO DAILY 05/20/19 02/11/23 clonazePAM [KlonoPIN] 0.5 mg PO BID PRN 11/16/19 02/11/23 Atorvastatin [Lipitor] 20 mg PO DAILY 11/21/22 02/11/23 Fluticasone Nasal [place] [Flonase 2 spray EA NOSTRIL DAILY 11/21/22 02/11/23 Nasal [place]] Ergocalciferol [Vitamin D2 (1250 1 tab PO Q15D 02/06/23 02/11/23 Mcg = 18111 Iu)] Fluticasone/Umeclidin/Vilanter 1 puff INHALATION DAILY 02/06/23 02/11/23 [Trelegy Ellipta 100-62.5-25] Pantoprazole Sodium [Protonix] 40 mg PO BID 02/06/23 02/11/23 Previous Rx's Medication Instructions Recorded Nitroglycerin Sl Tabs [Nitrostat] 0.4 mg SUBLINGUAL Q5M PRN #10 tab 02/04/17 Albuterol Inhaler [Ventolin Hfa 1 - 2 puff INHALATION Q4HR PRN #1 03/01/24 Inhaler] each Azithromycin [Zithromax Z Pack] 1 tab PO DIRECTED #6 tab 03/01/24 predniSONE 50 mg PO DAILY #5 tab 03/01/24 Allergies Allergy/AdvReac Type Severity Reaction Status Date / Time No Known Allergies Allergy Verified 03/01/24 08:10 Review of Systems ROS Statement: Those systems with pertinent positive or pertinent negative responses have been documented in the HPI. ROS Other: All systems not noted in ROS Statement are negative. Past Medical History Past Medical History: Asthma, Chest Pain / Angina, COPD, Deep Vein Thrombosis (DVT), GERD/Reflux, Hyperlipidemia, Hypertension, Liver Disease, Osteoarthritis (OA) Additional Past Medical History / Comment(s): numbness/tingling R leg, chronic low back pain and bilateral leg pain, DVT Rt leg in 2005, diverticulitis, wound on rt leg - d/c'd from wound care, pinhole remains, no drainage History of Any Multi-Drug Resistant Organisms: None Reported Past Surgical History: Appendectomy, Bowel Resection, Breast Surgery, Cholecystectomy, Hysterectomy, Orthopedic Surgery, Tubal Ligation Additional Past Surgical History / Comment(s): Lt THR, left knee arthroscopy, left breast biopsy, colonoscopy, egd Past Anesthesia/Blood Transfusion Reactions: No Reported Reaction Additional Past Anesthesia/Blood Transfusion Reaction / Comment(s): difficult IV start Past Psychological History: Anxiety Smoking Status: Current every day smoker - Past Family History Mother Family Medical History: Cancer Additional Family Medical History / Comment(s): voice box removed Sister(s) Family Medical History: Cancer, Deep Vein Thrombosis (DVT) Additional Family Medical History / Comment(s): .breast Father History Unknown: Yes Family Medical History: No Reported History, Unable to Obtain Additional Family Medical History / Comment(s): Dad but that she does not know his medical problems. Brother(s) Additional Family Medical History / Comment(s): She has one brother with COPD. Daughter(s) Additional Family Medical History / Comment(s): Patient has 4 children. One daughter from a motor vehicle accident. One daughter has had a stroke and myocardial infarction. General Exam Limitations: no limitations General appearance: alert, in no apparent distress Head exam: Present: atraumatic, normocephalic Eye exam: Present: normal appearance, PERRL ENT exam: Present: other (Nasal congestion) Respiratory exam: Present: rhonchi. Absent: respiratory distress, wheezes, decreased breath sounds Cardiovascular Exam: Present: regular rate, normal rhythm GI/Abdominal exam: Present: soft. Absent: distended, tenderness, guarding Extremities exam: Present: normal inspection, normal capillary refill. Absent: calf tenderness Neurological exam: Present: alert, oriented X3, CN II-XII intact. Absent: motor sensory deficit Skin exam: Present: warm, dry, intact. Absent: cyanosis, diaphoretic Course Vital Signs 03/01/24 03/01/24 03/01/24 08:08 08:10 08:57 Temperature 98.8 F Pulse Rate 75 74 Respiratory 24 24 20 Rate Blood Pressure 160/84 135/80 O2 Sat by Pulse 98 96 Oximetry Medical Decision Making - Medical Decision Making Was pt. sent in by a medical professional or institution (, PA, FARM SUPERVISOR, urgent care, hospital, or snf...) When possible be specific @ -No Did you speak to anyone other than the patient for history (EMS, parent, family, police, friend...)? What history was obtained from this source @ -No Did you review nursing and triage notes (agree or disagree)? Why? @ -I reviewed and agree with nursing and triage notes Were old charts reviewed (outside hosp., previous admission, EMS record, old EKG, old radiological studies, urgent care reports/EKG's, snf records)? Report findings @ -No old charts were reviewed Differential Dyspnea: Coronary syndrome, arrhythmia, tamponade, asthma, COPD, pulmonary embolism, pneumonia, pneumothorax, pulmonary effusion, anaphylaxis, diabetic ketoacidosis, flailed chest, pulmonary contusion, diaphragmatic rupture, anemia, neuromuscular, this is not meant to be an all-inclusive list. EKG interpreted by me (3pts min.). @ -As above X-rays interpreted by me (1pt min.). @ -Chest x-ray is negative for focal pneumonia, no acute findings CT interpreted by me (1pt min.). @ -None done U/S interpreted by me (1pt. min.). @ -None done What testing was considered but not performed or refused? (CT, X-rays, U/S, labs)? Why? @ -None What meds were considered but not given or refused? Why? @ -None Did you discuss the management of the patient with other professionals (professionals i.e. , PA, FARM SUPERVISOR, lab, RT, psych nurse, social worker health services, application packager, teacher, enforcement safety officer, rifle case repairer)? Give summary @ -No Was smoking cessation discussed for >3mins.? @ -No Was critical care preformed (if so, how long)? @ -No Were there social determinants of health that impacted care today? How? (Homelessness, low income, unemployed, alcoholism, drug addiction, transportation, low edu. Level, literacy, decrease access to med. care, group home, rehab)? @ -No Was there de-escalation of care discussed even if they declined (Discuss DNR or withdrawal of care, Hospice)? DNR status @ -No What co-morbidities impacted this encounter? (DM, HTN, Smoking, COPD, CAD, Cancer, CVA, ARF, Chemo, Hep., AIDS, mental health diagnosis, sleep apnea, morbid obesity)? @ -[COPD, current smoker Was patient admitted / discharged? Hospital course, mention meds given and route , prescriptions, significant lab abnormalities, going to OR and other pertinent info. @ -73-year-old female with upper respiratory symptoms, cough congestion, cough is productive. No central or typical chest pain. No lower extremity pain or swelling. No fever. Chest x-ray is clear without consolidated pneumonia. Viral panel is negative. Patient had been given albuterol and Atrovent by EMS, given steroids and first dose of antibiotics in the emergency department. Will be discharged on steroids, albuterol, and azithromycin for COPD. Undiagnosed new problem with uncertain prognosis? @ -No Drug Therapy requiring intensive monitoring for toxicity (Heparin, Nitro, Insulin, Cardizem)? @ -No Were any procedures done? @ -No Diagnosis/symptom? @ -COPD exacerbation Acute, or Chronic, or Acute on Chronic? @Acute Uncomplicated (without systemic symptoms) or Complicated (systemic symptoms)? @ -Default Side effects of treatment? @ -No Exacerbation, Progression, or Severe Exacerbation? @ -No Poses a threat to life or bodily function? How? (Chest pain, [place], [place], pneumonia, PE, COPD, DKA, ARF, appy, cholecystitis, CVA, Diverticulitis, Homicidal, Suicidal, threat to staff... and all critical care pts) @ -Low risk at this time - Lab Data Result diagrams: 03/01/24 08:23 03/01/24 08:23 Lab Results 03/01/24 03/01/24 03/01/24 Range/Units 08:23 08:23 08:23 WBC 15.0 H (3.8-10.6) k/uL RBC 4.64 (3.80-5.40) m/uL Hgb 13.2 (11.4-16.0) gm/dL Hct 42.9 (34.0-46.0) % MCV 92.4 (80.0-100.0) fL MCH 28.5 (25.0-35.0) pg MCHC 30.8 L (31.0-37.0) g/dL RDW 15.5 (11.5-15.5) % Plt Count 283 (150-450) k/uL MPV 7.2 Neutrophils % 76 % Lymphocytes % 16 % Monocytes % 4 % Eosinophils % 1 % Basophils % 0 % Neutrophils # 11.5 H (1.3-7.7) k/uL Lymphocytes # 2.5 (1.0-4.8) k/uL Monocytes # 0.6 (0-1.0) k/uL Eosinophils # 0.2 (0-0.7) k/uL Basophils # 0.1 (0-0.2) k/uL Hypochromasia Slight Sodium 141 (137-145) mmol/L Potassium 3.6 (3.5-5.1) mmol/L Chloride 107 (98-107) mmol/L Carbon Dioxide 27 (22-30) mmol/L Anion Gap 7 mmol/L BUN 17 (7-17) mg/dL Creatinine 0.88 (0.52-1.04) mg/dL Est GFR (CKD-EPI)AfAm 77 (>60 ml/min/1.73 sqM) Est GFR (CKD-EPI)NonAf 67 (>60 ml/min/1.73 sqM) Glucose 113 H (74-99) mg/dL Calcium 9.8 (8.4-10.2) mg/dL Total Bilirubin 0.5 (0.2-1.3) mg/dL AST 20 (14-36) U/L ALT 15 (4-34) U/L Alkaline Phosphatase 88 (38-126) U/L Total Protein 6.6 (6.3-8.2) g/dL Albumin 4.0 (3.5-5.0) g/dL Influenza Type A (PCR) Not Detected (Not Detectd) Influenza Type B (PCR) Not Detected (Not Detectd) RSV (PCR) Not Detected (Not Detectd) SARS-CoV-2 (PCR) Not Detected (Not Detectd) Disposition Clinical Impression: COPD (chronic obstructive pulmonary disease) Disposition: HOME SELF-CARE Condition: Fair Instructions (If sedation given, give patient instructions): COPD (Chronic Obstructive Pulmonary Disease) (ED) Prescriptions: predniSONE 50 mg PO DAILY #5 tab Albuterol Inhaler [Ventolin Hfa Inhaler] 1 - 2 puff INHALATION Q4HR PRN #1 each PRN Reason: Shortness Of Breath Azithromycin [Zithromax Z Pack] 1 tab PO DIRECTED #6 tab Is patient prescribed a controlled substance at d/c from ED?: No Referrals: Ramesh Reed MD [Primary Care Provider] - 1-2 days Time of Disposition: 09:22
[2024-03-01 08:30] LABS: Basophils # (A) 0.1 k/uL (0-0.2); Basophils % (A) 0 %; Eosinophils # (A) 0.2 k/uL (0-0.7); Eosinophils % (A) 1 %; HCT 42.9 % (34.0-46.0); HGB 13.2 gm/dL (11.4-16.0); Hypochromasia Slight; Lymphocytes # (A) 2.5 k/uL (1.0-4.8); Lymphocytes % (A) 16 %; MCH 28.5 pg (25.0-35.0); MCHC 30.8 g/dL (31.0-37.0); MCV 92.4 fL (80.0-100.0); Mean Platelet Volume 7.2; Monocytes # (A) 0.6 k/uL (0-1.0); Monocytes % (A) 4 %; Neutrophils # (A) 11.5 k/uL (1.3-7.7); Neutrophils % (A) 76 %; Platelet Count 283 k/uL (150-450); RBC 4.64 m/uL (3.80-5.40); RDW 15.5 % (11.5-15.5)
--- NOTE | 2024-03-01 08:41 | XR ---
EXAMINATION TYPE: XR chest 2V DATE OF EXAM: 03/01/2024 8:33 AM COMPARISON: 05/18/2017 CLINICAL INDICATION: Female, 73 years old with history of cough TECHNIQUE: PA and lateral views FINDINGS: The cardiomediastinal silhouette, aorta, and pulmonary vasculature are within normal limits. No conso lidation or pleural effusion. Surgical clips in the upper abdomen. IMPRESSION: No acute cardiopulmonary process. [facility], , 03/01/2024 8:39 AM
[2024-03-01] MEDS ORDERED: AZITHROMYCIN 500 MG in SODIUM CHLORIDE 0.9% 250 ML IVPB STA (08:46)
[2024-03-01 08:52] LABS: ALT 15 U/L (4-34); AST 20 U/L (14-36); African American GFR (CKD) 77 (>60 ml/min/1.73 sqM); Alkaline Phosphatase 88 U/L (38-126); Anion Gap 7 mmol/L; Blood Urea Nitrogen 17 mg/dL (7-17); Calcium 9.8 mg/dL (8.4-10.2); Carbon Dioxide 27 mmol/L (22-30); Chloride 107 mmol/L (98-107); Glucose 113 mg/dL (74-99); Non-African American GFR(CKD) 67 (>60 ml/min/1.73 sqM); Potassium 3.6 mmol/L (3.5-5.1); Sodium 141 mmol/L (137-145); Total Bilirubin 0.5 mg/dL (0.2-1.3); Total Protein 6.6 g/dL (6.3-8.2)
[2024-03-01] MEDS: AZITHROMYCIN 500 MG TAB PO STA (08:58)
[2024-03-01] MEDS: methylPREDNISolone SOD SUCCI 125 MG/2 ML VIAL IV STA (08:59)
[2024-03-01] MEDS: methylPREDNISolone SOD SUCCI 125 MG/2 ML VIAL IM ONE (09:09)
[2024-03-01 09:18] VITALS: BP 135/80; PULSE 74; RESP 20
== END 2024-03-01 09:40 | disposition home or self-care (01) ==
LOC: EC 08:04
DX: J44.89 Other specified chronic obstructive pulmonary disease (principal); F17.200 Nicotine dependence, unspecified, uncomplicated
CPT/HCPCS: 36415; 80053; 85025; 87636; 71046; 99285; 96372; J2919

== ENCOUNTER → 2024-08-23 | Outpatient (CLI) | payer MEDICARE, OTHER ==
--- NOTE | 2024-08-23 15:40 | CTL ---
EXAMINATION TYPE: CT Low Dose Lung DATE OF EXAM: 08/23/2024 12:38 PM COMPARISON: 10/31/2015 CLINICAL INDICATION: Female, 74 years old with history of Z12.2 LUNG CA SCR F17.210 CURRENT SMOKER; 1 /2 ppd x 58 years, no heart or lung conditions, history of tobacco use. TECHNIQUE: Multiple axial non-contrast scans were obtained from approximately the lung apices through the upper abdomen. Coronal and sagittal reformatted images were obtained. Low dose technique was uti lized. MIP were created on a separate workstation and submitted for review. CT DLP: 85.8 mGycm, Automated exposure control for dose reduction was used. CT Contrast: Contrast used: None Oral contrast used: None FINDINGS: Lack of intravenous contrast and low dose technique limits the evaluation of the vascular and soft ti ssue structures. LUNGS: No evidence of pulmonary fibrosis. No evidence of focal consolidation, pneumothorax or pleural effusion. Centrilobular emphysema changes. Nodules: RUL: None. RML: None. RLL: None. ALEXIA: None. LLL: None. AIRWAY: Patent and unremarkable. HEART: Size within normal limits. Moderate coronary artery calcifications present. MEDIASTINUM: No gross evidence of adenopathy. VASCULATURE: No aortic aneurysm. MUSCULOSKELETAL: No acute osseous abnormalities SOFT TISSUES/LYMPH NODES: Unremarkable. LOWER NECK: No significant findings. UPPER ABDOMEN: The gallbladder surgically absent. IMPRESSION: 1. No clinically significant pulmonary nodules. 2. Mild emphysema. 3. Moderate coronary artery atherosclerosis. CT LUNG RAD AND CT CHEST RECOMMENDATION: Lung-Rad 1 Negative: Continue annual screening with LDCT in 12 months. S Modifier (other clinically significant findings): None Recommend smoking cessation (if current smoker), or continuation of smoking cessation (if prior smoke r). Annual screening for lung cancer with low-dose computed tomography is recommended in adults ages 55 to 77 years who have a 30 pack-year smoking history and currently smoke or have quit within the pa st 15 years. Screening should be discontinued once a person has not smoked for 15 years or develops a health problem that substantially limits life expectancy or the ability or willingness to have curat rayshawn lung surgery. Lung rads 2021 [email or web address] [facility], , 08/23/2024 3:38 PM
== END | disposition home or self-care (01) ==
LOC: RADCTMAIN 12:08
PROVIDERS: ATTEND Family Medicine
DX: Z12.2 Encounter for screening for malignant neoplasm of respiratory organs (principal); F17.210 Nicotine dependence, cigarettes, uncomplicated; I25.10 Atherosclerotic heart disease of native coronary artery without angina pectoris; J43.2 Centrilobular emphysema
CPT/HCPCS: 71271

== ENCOUNTER → 2024-08-27 | Outpatient (CLI) | payer MEDICARE, OTHER ==
[2024-08-28 00:30] LABS: Cryptosporidium Antigen Negative (Negative)
== END | disposition home or self-care (01) ==
LOC: LABPRL 13:08
PROVIDERS: ATTEND Nurse Practitioner Family
DX: R19.7 Diarrhea, unspecified (principal)
CPT/HCPCS: 87324; 87328; 87329